=== PATIENT | female | born 1965 | race Two or more races ===

== ENCOUNTER 2020-02-26 12:43 | Outpatient (REF) | payer MEDICAID, SELFPAY ==
[2020-02-29 15:36] LABS: HPV mRNA E6/E7 rflx Not Detected (Not Detected)
== END 2020-02-26 12:44 | disposition home or self-care (01) ==
LOC: HO.LAB 12:43
PROVIDERS: Visit Provider Obstetrics & Gynecology
DX: Z01.419 Encounter for gynecological examination (general) (routine) without abnormal findings (principal); R87.610 Atypical squamous cells of undetermined significance on cytologic smear of cervix (ASC-US); R87.810 Cervical high risk human papillomavirus (HPV) DNA test positive
CPT/HCPCS: 87624; 87625; 88142

== ENCOUNTER 2020-03-06 17:20 | Outpatient (REF) | payer MEDICAID, SELFPAY | END 2020-03-06 17:21 | disposition home or self-care (01) | LOC: HO.LAB 17:20 | PROVIDERS: Visit Provider Internal Medicine | DX: Z20.828 Contact with and (suspected) exposure to other viral communicable diseases (principal) | CPT/HCPCS: C9803; U0003 ==

== ENCOUNTER 2020-04-30 09:24 | Outpatient (REF) | payer MEDICAID, SELFPAY | END 2020-04-30 09:25 | disposition home or self-care (01) | LOC: HO.LAB 09:24 | PROVIDERS: Visit Provider Internal Medicine | DX: Z20.822 Contact with and (suspected) exposure to COVID-19 (principal) | CPT/HCPCS: 36415; C9803; U0003 ==

== ENCOUNTER 2020-05-06 10:02 | Outpatient (REF) | payer MEDICAID, SELFPAY | END 2020-05-06 10:03 | disposition home or self-care (01) | LOC: HO.LAB 10:02 | PROVIDERS: Visit Provider Internal Medicine | DX: Z20.822 Contact with and (suspected) exposure to COVID-19 (principal) | CPT/HCPCS: 36415; C9803; U0003 ==

== ENCOUNTER → 2020-06-20 13:45 | Outpatient (BNVA) | payer MEDICAID, SELFPAY | PROVIDERS: PCP Nurse Practitioner Family; Visit Provider Physician Assistant ==

== ENCOUNTER 2020-07-26 13:04 | Outpatient (REF) | payer MEDICAID, SELFPAY ==
--- NOTE | ~2020-07-26 | MM_ITS ---
EXAMINATION: MM SCREENING DIGITAL BREAST TOMOSYNTHESIS, BILATERAL CLINICAL INFORMATION: Screening. Asymptomatic. The lifetime risk of breast cancer based on the Tyrer-Cuzick Model is 7%. COMPARISON: Mammography: 01/19/2019, 07/20/2017, 03/02/2017, 01/30/2016 TECHNIQUE: Digital breast tomosynthesis is performed in both the craniocaudal and mediolateral oblique views along with computer-aided detection (CAD). Synthesized 2D images are generated from the tomosynthesis. FINDINGS: There are scattered areas of fibroglandular density (ACR BI-RADS breast composition Category b). There are no significant masses, abnormal calcifications, or other abnormalities. Parenchymal pattern is similar to prior studies. The axilla and skin contours are unremarkable. MM/MM tomosynthesis screening BI IMPRESSION: No mammographic evidence of malignancy. ASSESSMENT: BI-RADS 1: Negative RECOMMENDATION: Routine annual mammography screening. This patient's information was entered into a reminder system with a target due date for their next mammogram.
== END 2020-07-26 13:05 | disposition home or self-care (01) ==
LOC: HO.MAMMO 13:04
PROVIDERS: Visit Provider Obstetrics & Gynecology
DX: Z12.31 Encounter for screening mammogram for malignant neoplasm of breast (principal)
CPT/HCPCS: 77063; 77067

== ENCOUNTER 2021-10-08 10:19 | Outpatient (REF) | payer MEDICAID, SELFPAY ==
[2021-10-15 19:06] LABS: HPV mRNA E6/E7 rflx Not Detected (Not Detected)
== END 2021-10-08 10:20 | disposition home or self-care (01) ==
LOC: HO.LAB 10:19
PROVIDERS: Visit Provider Obstetrics & Gynecology
DX: Z01.419 Encounter for gynecological examination (general) (routine) without abnormal findings (principal); Z11.51 Encounter for screening for human papillomavirus (HPV)
CPT/HCPCS: 87624; 88142

== ENCOUNTER 2021-12-12 08:35 | Outpatient (REF) | payer MEDICAID, SELFPAY ==
--- NOTE | ~2021-12-12 | MM_ITS ---
EXAMINATION: MM SCREENING DIGITAL BREAST TOMOSYNTHESIS, BILATERAL CLINICAL INFORMATION: Screening. Asymptomatic. The lifetime risk of breast cancer based on the Tyrer-Cuzick Model is 6%. COMPARISON: Mammography: 07/26/2020, 01/19/2019, 07/20/2017 TECHNIQUE: Digital breast tomosynthesis is performed in both the craniocaudal and mediolateral oblique views along with computer-aided detection (CAD). Synthesized 2D images are generated from the tomosynthesis. FINDINGS: There are scattered areas of fibroglandular density (ACR BI-RADS breast composition Category b). There are no significant masses, abnormal calcifications, or other abnormalities. No developing density or architectural abnormality. There is a dermal lesion overlying the upper right breast on MLO view. The axilla are unremarkable. MM/MM tomosynthesis screening BI IMPRESSION: No mammographic evidence of malignancy. ASSESSMENT: BI-RADS 2: Benign RECOMMENDATION: Routine annual mammography screening. This patient's information was entered into a reminder system with a target due date for their next mammogram.
== END 2021-12-12 08:36 | disposition home or self-care (01) ==
LOC: HO.MAMMO 08:35
PROVIDERS: Visit Provider Obstetrics & Gynecology
DX: Z12.31 Encounter for screening mammogram for malignant neoplasm of breast (principal)
CPT/HCPCS: 77063; 77067

== ENCOUNTER → 2021-12-18 07:31 | Outpatient (BNVA) | payer MEDICAID, SELFPAY | PROVIDERS: Visit Provider Physician Assistant | DX: Z12.11 Encounter for screening for malignant neoplasm of colon (principal); Z86.010 Personal history of colon polyps | CPT/HCPCS: 99212 ==

== ENCOUNTER 2021-12-19 12:50 | Day surgery (SDC) | payer MEDICAID, SELFPAY ==
--- NOTE | 2021-12-18 15:00 | P.CONAN_ITS ---
Documented by User: Nela Buckner NP 12/18/21 15:00 HPI - Anesthesia Eval Consult details Narrative: 55yo F for Colonoscopy PMFSH Active Problems Active Problems: All Active Problems (Updated 12/18/21 @ 08:05 by Paulette Lee PA-C) History of adenomatous polyp of colon (Acute) Acid reflux (Acute) Encounter for screening colonoscopy (Acute) Well woman exam (Acute) ASCUS with positive high risk HPV (Acute) Past Medical History Medical History 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 I (cervical intraepithelial neoplasia I) Family History Family History Mother Colon cancer Brother Bladder cancer Sister Liver cancer Surgical History Surgical History History of esophagogastroduodenoscopy (EGD) Hx of colonoscopy Social History Social History Household Members Other:: MOTHER Alcohol intake: current Alcohol intake frequency: does not drink Patient Tobacco Use Status: Never used Tobacco Use of substances other than those prescribed or required for medical reasons: No Are you DNR?: No Advance Directives: No Advance Directives Information Provided: Yes Current occupational status: employed 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 Meds Allergies Allergy/AdvReac Type Severity Reaction Status Date / Time No Known Allergies Allergy Verified 02/26/20 12:54 [No Known Allergies*] Exam Exam Date and Time: December 18, 2021 1500 Assessment and Plan Assessment Anesthesia Assessment: Chart Reviewed Documented by User: Nikki Baxter MD 12/19/21 14:31 PMFSH Past Medical History Medical History 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 I (cervical intraepithelial neoplasia I) Functional capacity: independent ambulation Patient : No Family History Family History Mother Colon cancer Brother Bladder cancer Sister Liver cancer Family history of problems with anesthesia: No Surgical History Surgical History History of esophagogastroduodenoscopy (EGD) Hx of colonoscopy History of Problems with Anesthesia: No Social History Social History Household Members Other:: MOTHER Alcohol intake: current Alcohol intake frequency: does not drink Patient Tobacco Use Status: Never used Tobacco Use of substances other than those prescribed or required for medical reasons: No Are you DNR?: No Advance Directives: No Advance Directives Information Provided: Yes Current occupational status: employed 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 Allergies Allergy/AdvReac Type Severity Reaction Status Date / Time No Known Allergies Allergy Verified 02/26/20 12:54 [No Known Allergies*] Exam Airway Mallampati Class: II TM Dist: >3cm Neck ROM: Full Heart: RRR Lungs: CTA Assessment and Plan Final Anesthetic Review Family History of Problems with Anesthesia: No History of Problems with Anesthesia: No ASA Class: II Final Preanesthetic Review: No Changes in Pt Med Stat, Meds/Allgs Chart Reviewed, Consent Obtained/Reviewed and Anes Risks/Benef Reviewed Patient Risk: Low Procedure Risk: Low Anesthetic Plan Anesthetic Plan: MAC: Disposition: Standard PACU
[2021-12-19 13:28] VITALS: BMI 25.4
[2021-12-19 13:35] VITALS: BP 129/80; PULSE 74; RESP 15; TEMP 36.3; O2SAT 100
[2021-12-19] MEDS: Lactated Ringers 1,000 ML 100 ML IVCONT (13:53)
--- NOTE | 2021-12-19 15:52 | P.BOP_ITS ---
Brief Operative Note Date of Service: 12/19/21 Pre-op diagnosis: Colon cancer screening, history of colon polyps, family history of colon cancer (Mom in her 80's) Post-op diagnosis: other (Colon polyp, diverticulosis) Procedure: COLONOSCOPY TILL CECUM WITH SNARE POLYPECTOMY Consent: Indications for the procedure and potential complications of bleeding, perforation, reaction to medications and missed diagnosis were discussed with the patient and informed consent was obtained. Instrument: Olympus PCF H 190 L variable stiffness pediatric colonoscope Monitoring: Vital signs and clinical assessment, intermittent blood pressure monitoring, continuous EKG monitoring, Pulse oximetry and Carbon Dioxide monitoring were done throughout the procedure. Colon withdrawl time was 21 minutes. Procedure: The patient was placed in the left lateral decubitis position and pre-procedure medications were administered. After a digital rectal examination of the ano-rectum, the video colonoscope was inserted into the rectum and advanced through the colon to the cecum. The colonoscope was slowly withdrawn in a retrograde panoramic fashion and the colon mucosa was carefully examined including a retroflexed view of the rectum. Findings and interventions are described below. Procedure Difficulty: Without difficulty Findings: Terminal Ileum: Not evaluated Cecum: A 2.5 cms polyp along the proximal lip of ICV - removed with a hot snare Ascending Colon: Normal Transverse Colon: Normal Descending Colon: Moderate diverticulosis Sigmoid Colon: Moderate diverticulosis Rectum: Normal Ano-rectum: Normal Colon preparation: Good Impression and Post Procedure Diagnosis: Colonoscopy Findings: One medium to large sized polyp removed Moderate diverticulosis seen in the left colon Plan: Await pathology results Patient has an appointment on 01/12/22 in the GI Clinic with CANDELARIA Walls. Repeat Colonoscopy interval based on path results - in 6 to 12 months if polyps is adenomatous and 5 years if polyps are hyperplastic (due to hx of colon polyps). Above findings were reviewed with the patient and colon polyps and diverticulosis handouts were given in the discharge area Surgeon: Celina López MD Anesthesia: MAC Was an Formula Maker used for this Procedure?: Yes Formula Maker: Jennifer Samuel Estimated blood loss (mL): 0 Pathology: other ( A: Iliocecal valve polyp.) Condition: stable Disposition: PACU
--- NOTE | 2021-12-19 15:52 | MHC.SHP ---
Pre-Procedural Eval Section A Date of Service: 12/19/21 The patient is an INPATIENT: No Changes since office visit: Yes Patient answered all questions; No Cold of Flu in the past 2 weeks, No New Medical Problems and No Changes in Medication The History & Physical has been completed within 30 days and I have reviewed it.: Yes Section B Chief Complaint: Personal history of colonic polyps,screening Allergies: Allergies Allergy/AdvReac Type Severity Reaction Status Date / Time No Known Allergies Allergy Verified 02/26/20 12:54 [No Known Allergies*] Plan I have reviewed the history and physical and performed a pertinent physical examination on my patient. No changes have occurred unless specified.
--- NOTE | 2021-12-19 15:54 | W.PM.OPN ---
Operative Note Operative Note Date of Service: 12/19/21 Narrative: Pre-op diagnosis: Colon cancer screening, history of colon polyps, family history of colon cancer (Mom in her 80's) Post-op diagnosis:?other (Colon polyp, diverticulosis) Procedure: COLONOSCOPY TILL CECUM WITH SNARE POLYPECTOMY Consent: Indications for the procedure and potential complications of bleeding, perforation, reaction to medications and missed diagnosis were discussed with the patient and informed consent was obtained. Instrument: Olympus PCF H 190 L variable stiffness pediatric colonoscope Monitoring: Vital signs and clinical assessment, intermittent blood pressure monitoring, continuous EKG monitoring, Pulse oximetry and Carbon Dioxide monitoring were done throughout the procedure. Colon withdrawl time was 21 minutes. Procedure: The patient was placed in the left lateral decubitis position and pre-procedure medications were administered. After a digital rectal examination of the ano-rectum, the video colonoscope was inserted into the rectum and advanced through the colon to the cecum. The colonoscope was slowly withdrawn in a retrograde panoramic fashion and the colon mucosa was carefully examined including a retroflexed view of the rectum. Findings and interventions are described below. Procedure Difficulty: Without difficulty Findings: Terminal Ileum: Not evaluated Cecum:? A 2.5 cms polyp along the proximal lip of ICV - removed with a hot snare Ascending Colon:? Normal Transverse Colon:? Normal Descending Colon:? Moderate diverticulosis Sigmoid Colon:? Moderate diverticulosis Rectum:? Normal Ano-rectum:? Normal Colon preparation:? Good? Impression and Post Procedure Diagnosis: Colonoscopy Findings: One medium to large sized polyp removed Moderate diverticulosis seen in the left colon Plan: Await pathology results Patient has an appointment on 01/12/22 in the GI Clinic with CANDELARIA Walls. Repeat Colonoscopy interval based on path results - in 6 to 12 months if polyps is adenomatous and 5 years if polyps are hyperplastic (due to hx of colon polyps). 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 Letter sent with biopsy results Surgeon: Celina López MD Anesthesia:?MAC Was an Dispatcher Bus And Trolley used for this Procedure?:?Yes Dispatcher Bus And Trolley:?Jennifer Samuel Estimated blood loss (mL):?0 Pathology:?other ( A: Iliocecal valve polyp.) Condition:?stable Disposition:?PACU
[2021-12-19 16:39] VITALS: BP 116/70; PULSE 76; RESP 16; TEMP 36.6; O2SAT 100
[2021-12-19 16:54] VITALS: BP 125/78; PULSE 67; RESP 14; O2SAT 100
[2021-12-19 17:09] VITALS: BP 134/81; PULSE 63; RESP 20; TEMP 36.9; O2SAT 97
== END 2021-12-19 17:14 | disposition home or self-care (01) ==
PROVIDERS: Visit Provider Internal Medicine Gastroenterology
PROC: 0DJD8ZZ Inspection of Lower Intestinal Tract, Via Natural or Artificial Opening Endoscopic (ICD-10-PCS; CPT 45378; principal; 2021-12-19 14:10)
DX: Z12.11 Encounter for screening for malignant neoplasm of colon (principal); Z86.010 Personal history of colon polyps; Z80.0 Family history of malignant neoplasm of digestive organs; K63.5 Polyp of colon; K57.30 Diverticulosis of large intestine without perforation or abscess without bleeding; D17.5 Benign lipomatous neoplasm of intra-abdominal organs
CPT/HCPCS: 45385; 88305

== ENCOUNTER → 2022-01-12 07:23 | Outpatient (BNVA) | payer MEDICAID, SELFPAY | PROVIDERS: Visit Provider Physician Assistant | DX: K57.30 Diverticulosis of large intestine without perforation or abscess without bleeding (principal); D17.79 Benign lipomatous neoplasm of other sites; Z86.010 Personal history of colon polyps; Z98.890 Other specified postprocedural states | CPT/HCPCS: 99212 ==

== ENCOUNTER 2022-07-08 12:08 | Outpatient (REF) | payer MEDICAID, SELFPAY ==
--- NOTE | ~2022-07-08 | XR_ITS ---
EXAMINATION: XR ELBOW, LEFT CLINICAL INFORMATION: Trauma. COMPARISON: None available. TECHNIQUE: AP, lateral, and oblique views of the left elbow. FINDINGS: There is normal alignment. Joint spaces are maintained. No evidence of acute fracture. No significant joint effusion is seen. No abnormal soft tissue calcification. XR/XR elbow LT min 3V IMPRESSION: No radiographic evidence of acute fracture.
== END 2022-07-08 12:09 | disposition home or self-care (01) ==
LOC: HO.XRAY 12:08
PROVIDERS: Visit Provider Internal Medicine
DX: M70.32 Other bursitis of elbow, left elbow (principal)
CPT/HCPCS: 73080

== ENCOUNTER → 2022-09-30 07:41 | Outpatient (REF) | payer MEDICAID, SELFPAY ==
--- NOTE | 2022-09-30 07:45 | CA_ITS ---
Transthoracic Echocardiogram Patient (Last, First, Middle): Ana Ribeiro, Gender: Female Date of : 1965 Age: 56 Procedure Date: 09/30/2022 Procedure Type: Transthoracic Echocardiogram Location: OP Height: 152.4 cm Weight: 58.06 kg BSA: 1.54 m2 Heart Rate: bpm BP: 120 / 78 mmHg Corduroy Cutter Operator: TO Referring MD: Doretha ESCAMILLA Symptoms: FAM HX CV DISEASE Z82.49 Study Quality: Fair/Contrast ECG Rhythm: Sinus Conclusions: - The left ventricular systolic function is normal. The calculated ejection fraction is 60% by biplane method. - The basal inferior and basal inferoseptal segments are hypokinetic. - No obvious valvular pathology seen on this study. Findings Procedure Information Contrast agent, definity, is being given per protocol without apparent complications. Left Ventricle Normal left ventricular cavity size. There is normal left ventricular wall thickness. The left ventricular systolic function is normal. The calculated ejection fraction is 60% by biplane method. There is no evidence of regional wall motion abnormalities. Diastolic function is normal for age. LV peak GLS -16.2%. Wall Motion Rest Echo Findings The basal inferior and basal inferoseptal segments are hypokinetic. Right Ventricle Normal right ventricular cavity size and systolic function. Atria Both atria are normal in size. Aortic Valve There is a normal trileaflet aortic valve. There is no aortic valve stenosis. There is no aortic valve regurgitation. Mitral Valve The mitral valve appears normal. There is trace mitral valve regurgitation. There is no mitral valve stenosis. Pulmonic Valve The pulmonic valve is likely normal. Tricuspid Valve There is no tricuspid valve regurgitation. Tricuspid regurgitation envelope is inadequate for calculation of right ventricular systolic pressure. Great Vessels The asc aorta is normal in size. Venous The inferior vena cava is normal in size and collapses greater than 50% with inspiration. Pericardium/Pleural There is a trivial pericardial effusion. Prior Study Comparison No prior study available for comparison. Recommendations, Care & Conclusions No obvious valvular pathology seen on this study. Measurements 2D Linear Measurements IVSd: 0.90 0.6-0.9/0.6-1.0 cm LVIDd: 4.26 3.9-5.3/4.2-5.9 cm LVIDd Index: 2.77 2.4-3.2/2.2-3.1 cm/m2 LVIDs: 2.49 2.0-3.6 cm LVPWd: 0.70 0.7-1.1 cm LA Diam: 2.70 2.7-3.8/3.0-4.0 cm LAIDs Index: 1.75 1.5-2.3 cm/m2 LV Mass: 129.09 67-162/88-224 g LV Mass Index: 83.83 43-95/49-115 g/m2 LVOT Diam: 2.00 3.0+(-)1.3 cm 2D Systolic Function EF 4C: 58.80 >55% EF 2C: 60.10 >55% EF BiP: 60.20 >55% Mitral Valve MV Pk E: 0.64 MV PK A: 0.72 MV Decel Time: 244.00 E/A: 0.90 E'Lateral: 6.96 E'Medial: 5.11 E/E' Med: 12.60 E/E' Lat: 9.20 PHT: 71.00 MVA PHT: 3.10 Decel Duchesne: 2.63 Aortic Valve AoV Pk Sea: 1.10 AoV Mn Sea: 0.76 AoV VTI: 0.25 AoV Pk Grad: 5.00 Aov Mn Grad: 3.00 ROSALINA Cont.VTI: 2.29 LVOT LVOT Pk Sea: 0.94 LVOT Mn Sea: 0.56 LVOT VTI: 0.18 LVOT Pk Grad: 4.00 LVOT Mn Grad: 1.00 LVOT Diam: 2.00 LVOT Area: 3.14 Diastolic Function MV Pk E: 0.64 MV Pk A: 0.72 E/A: 0.90 E'Medial: 5.11 E/E' Med: 12.60 E' Laterial: 6.96 E/E' Lat: 9.20 Right Ventricle TAPSE (mm): 24.80 TVS' Sea: 10.70 Tricuspid Valve RA Press: 3.00 Great Vessels Aorta Sinus of Valsalva: 2.69 2.0-3.5 cm Ao Asc: 3.00 2.1-3.4 cm Updated in Other Vendor System with Status of Final Wilfrido Bucio MD electronically signed on 10/02/2022 12:05:24 PM with status of Final
== END ==
LOC: HO.CARD 07:41
PROVIDERS: Visit Provider Registered Nurse
DX: Z82.49 Family history of ischemic heart disease and other diseases of the circulatory system (principal)
CPT/HCPCS: 93306; 93356; Q9957

== ENCOUNTER 2022-10-20 21:28 | Emergency (ER) | payer MEDICAID, SELFPAY ==
--- NOTE | ~2022-10-20 | XR_ITS ---
EXAMINATION: XR CHEST CLINICAL INFORMATION: Chest pain COMPARISON: 05/16/2017 TECHNIQUE: 2 views of the chest were obtained. FINDINGS: Lung volumes are symmetric. No focal consolidation is seen. No evidence of pneumothorax, pleural effusion, or overt pulmonary edema. Chronic mild interstitial prominence is unchanged, of uncertain clinical significance. Cardiac silhouette appears at the upper limits of normal in size. No acute osseous findings are seen. XR/XR chest 2V IMPRESSION: No acute cardiopulmonary findings.
[2022-10-20 21:54] VITALS: BP 147/78; PULSE 77; RESP 80; TEMP 36.2; O2SAT 97; BMI 25.0
--- NOTE | 2022-10-20 22:02 | ECG_ITS ---
Test Reason : CHEST PAIN Blood Pressure : / mmHG Vent. Rate : 074 BPM Atrial Rate : 074 BPM P-R Int : 168 ms QRS Dur : 084 ms QT Int : 366 ms P-R-T Axes : 050 004 017 degrees QTc Int : 406 ms Normal sinus rhythm Normal ECG No previous ECGs available Referred By: Generic ED Physician Electronically Signed By:JAMILA HAYDEN MD
[2022-10-20 22:37] LABS: MANUAL DIFF FLAG NO
[2022-10-20 22:43] LABS: Basophils Percent Auto 0.5 % (0-2); Eosinophils Absolute Auto 0.1 X10*3/uL (0.0-0.4); Eosinophils Percent Auto 1.1 % (0-4); Hematocrit 39.5 % (37.0-47.0); Hemoglobin 12.7 g/dl (12.0-16.0); Imm Gran Abs Auto 0.01 X10*3/uL (0.00-0.03); Imm Gran Pct Auto 0.2 % (0.0-0.4); Lymphocytes Absolute Auto 2.2 X10*3/uL (1.2-4.9); Lymphocytes Percent Auto 35.8 % (20-40); Mean Corpuscular HGB Conc 32.2 g/dl (31.0-35.0); Mean Corpuscular Hemoglobin 29.5 pg (27.0-33.0); Mean Corpuscular Volume 91.6 fL (80.0-98.0); Mean Platelet Volume 10.1 fL (9.4-12.3); Monocytes Absolute Auto 0.4 X10*3/uL (0.1-1.2); Neutrophils Absolute Auto 3.5 x10*3/uL (2.0-8.3); Neutrophils Percent Auto 56.4 % (45-73); Platelet Count 287 X10*3/uL (160-400); Red Blood Count 4.31 X10*6/uL (4.20-5.50); Red Cell Distribution Width 12.2 % (11.0-16.0); White Blood Count 6.1 X10*3/uL (4.8-10.8)
[2022-10-20 22:55] LABS: Alanine Aminotransferase 30 U/L (0-31); Albumin Level 4.3 g/dL (3.5-5.0); Alkaline Phosphatase 87 U/L (39-117); Anion Gap 15 (12-20); Aspartate Amino Transferase 18 U/L (5-31); Bilirubin Total 0.2 mg/dL (0.0-1.0); Blood Urea Nitrogen 15 mg/dL (9-16); Calcium 9.9 mg/dL (8.4-10.2); Carbon Dioxide 28 mmol/L (22-29); Chloride 105 mmol/L (96-108); Creatinine Clr Calc Pharmacy 63.5; Estimated Glomerular Filt Rate > 60; Glucose Random 126 mg/dL (60-115); Potassium 4.7 mmol/L (3.3-5.1); Sodium 143 mmol/L (135-145); Total Protein 7.2 g/dL (6.5-8.0)
[2022-10-20 23:03] LABS: Troponin-I High Sensitivity < 2.7 ng/L (<3.5-17.0)
[2022-10-21 00:54] VITALS: BP 142/84; PULSE 64; RESP 16; TEMP 36.8; O2SAT 98
--- NOTE | 2022-10-21 00:59 | MHC.EDTECH ---
THIS PCT JUST ASSUMED CARE OF ,VITALS SIGN TAKEN AND PATIENT WAS HOOKED UP TO CULINARY MANAGER ,PT AT BEDSIDE .
--- NOTE | 2022-10-21 01:40 | ED.GENADULT ---
HPI - General Adult General Chief complaint: General Medical Stated complaint: Vision issues/Dizziness Time Seen by Provider: 10/21/22 01:40 Source: patient Mode of arrival: ambulatory Limitations: no limitations History of Present Illness HPI narrative: Patient with no significant eye problems no history of migraine headache around 21:00 noticed scintillations in both eyes lasted for an hour no scotomas no eye pain followed by mild frontal headache and anxiety and chest pain. At this time on arrival patient does not have any complaints no change in visual acuity no nausea no vomiting no fever or chills Related Data Home Medications Medication Instructions Recorded Confirmed omeprazole 20 mg capsule,delayed 20 mg PO DAILY 01/12/22 release Allergies Allergy/AdvReac Type Severity Reaction Status Date / Time No Known Allergies Allergy Verified 10/20/22 21:54 [No Known Allergies*] Review of Systems Review of Systems: Yes all other systems are reviewed and are negative [facility] Past Medical History Medical History 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 I (cervical intraepithelial neoplasia I) Surgical History History of esophagogastroduodenoscopy (EGD) Hx of colonoscopy Family History Family History Mother Colon cancer Brother Bladder cancer Sister Liver cancer Social History Social History Household Members Other:: MOTHER Alcohol intake: current Alcohol intake frequency: does not drink Patient Tobacco Use Status: Never used Tobacco Advance Directives: No Advance Directives Information Provided: No Current occupational status: employed 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 Oriented X3. No acute distress. Eyes: PERRLA, No Nystagmus fundus normal exam , bedside ultrasound of both eyes no vitreous detachment anterior and posterior chamber normal ENT: Pharynx normal. Oral Mucosa moist Neck: Normal inspection. Neck supple. CVS: Normal heart rate and rhythm. Pulses normal. Respiratory: No respiratory distress. Equal air entry bilateral, Abdomen: Soft and nontender. Bowel sounds are present, Skin: Skin warm and dry. Normal skin color. Normal skin turgor. Extremities: No lower extremity edema. No calf tenderness Neuro: Oriented X 3. No motor deficit. No sensory deficit.No cerebellar signs , cranial nerves II-XII intact Medical Decision Making Medical Decision Making [facility] Narrative: Patient likely had migraine headache as this happened in both eyes lasted for an hour followed by headache. At this time which does not have any headache ultrasound negative for retinal detachment visual acuity normal no scotoma fundus normal Lab Data [facility] Lab Attestation statement: I reviewed the patient's lab results. 10/20/22 22:28 10/20/22 22:29 Labs: Lab Results 10/20/22 10/20/22 10/20/22 Range/Units 22:28 22:29 22:29 WBC 6.1 (4.8-10.8) X10*3/uL RBC 4.31 (4.20-5.50) X10*6/uL Hgb 12.7 (12.0-16.0) g/dl Hct 39.5 (37.0-47.0) % MCV 91.6 (80.0-98.0) fL MCH 29.5 (27.0-33.0) pg MCHC 32.2 (31.0-35.0) g/dl RDW 12.2 (11.0-16.0) % Plt Count 287 (160-400) X10*3/uL MPV 10.1 (9.4-12.3) fL Immature Gran % (Auto) 0.2 (0.0-0.4) % Neut % (Auto) 56.4 (45-73) % Lymph % (Auto) 35.8 (20-40) % Bland % (Auto) 6.0 (2-11) % Eos % (Auto) 1.1 (0-4) % Baso % (Auto) 0.5 (0-2) % Lymph # (Auto) 2.2 (1.2-4.9) X10*3/uL Bland # (Auto) 0.4 (0.1-1.2) X10*3/uL Eos # (Auto) 0.1 (0.0-0.4) X10*3/uL Baso # (Auto) 0.0 (0.0-0.2) X10*3/uL Abs Immat Gran (auto) 0.01 (0.00-0.03) X10*3/uL Absolute Neuts (auto) 3.5 (2.0-8.3) x10*3/uL Absolute Nucleated RBC 0.000 (0.0-0.012) X10*3/uL Nucleated RBC % (auto) 0.0 (0.0-0.2) /100WBC Sodium 143 (135-145) mmol/L Potassium 4.7 (3.3-5.1) mmol/L Chloride 105 (96-108) mmol/L Carbon Dioxide 28 (22-29) mmol/L Anion Gap 15 (12-20) BUN 15 (9-16) mg/dL Creatinine 0.77 (0.5-1.4) mg/dL Estim Creat Clear Calc 63.5 Estimated GFR > 60 Random Glucose 126 H (60-115) mg/dL Calcium 9.9 (8.4-10.2) mg/dL Total Bilirubin 0.2 (0.0-1.0) mg/dL AST 18 (5-31) U/L ALT 30 (0-31) U/L Alkaline Phosphatase 87 (39-117) U/L Troponin I High Sens < 2.7 (<3.5-17.0) ng/L Total Protein 7.2 (6.5-8.0) g/dL Albumin 4.3 (3.5-5.0) g/dL Discharge Plan Discharge Clinical Impression: Floater, vitreous Patient Disposition: Home, Self-Care Instructions: Visual Floaters (ED) Additional Instructions: Likely have migraine headache as a cause of visual changes follow-up with eye doctor for further evaluation Es probable que tenga migra?a dipak causa de los cambios visuales. seguimiento con un oftalm?logo para bruce evaluaci?n adicional Prescriptions: No Action omeprazole 20 mg capsule,delayed release(DR/EC) 20 mg PO DAILY Referrals: Rishabh Schwab [Physician] - 2 days Print Language: Setswana
[2022-10-21 02:00] VITALS: BP 127/80; PULSE 71; RESP 18; TEMP 36.8; O2SAT 98
== END 2022-10-21 03:08 | disposition home or self-care (01) ==
PROVIDERS: Emergency Provider Internal Medicine
DX: H53.8 Other visual disturbances (principal); H43.9 Unspecified disorder of vitreous body
CPT/HCPCS: 36415; 71046; 80053; 84484; 85025; 93005; 99283; 99284

== ENCOUNTER → 2022-10-20 22:02 | Outpatient (BNV) | payer MEDICAID, SELFPAY | PROVIDERS: Emergency Provider Internal Medicine; Visit Provider Internal Medicine Cardiovascular Disease | DX: R07.9 Chest pain, unspecified (principal) | CPT/HCPCS: 93010 ==

== ENCOUNTER 2022-11-19 11:30 | Outpatient (AMB) | payer OTHER, SELFPAY ==
[2022-11-19 11:31] VITALS: BP 102/60; BMI 25.4
--- NOTE | 2022-11-19 11:31 | MHC.OFFVIS ---
Intake Vital Signs 11/19/22 11:31 Height 5 ft Weight 130 lb BMI 25.4 BP 102/60 Intake Visit Reasons: Annual/DO NOT RS Intake Note: no concerns Assistant Sales Manager Required: Yes Assistant Sales Manager Language: Hydroelectric Component Machinist Name: Ani GIANG Information Interpreted: non-clinical & clinical Ceramic Tile Installation Helper: Ceramic Tile Installation Helper Present (Ani GIANG) Accompanied by: Self / Same As Patient Allergies No Known Allergies [No Known Allergies*] Allergy (Verified 11/19/22 11:32) Post menopausal: Yes HPI HPI Comments History of Present Illness Details Presenting for annual exam. No complaints. Last Pap/HPV was negative in 10/01 Last Mammogram was BI-RADS 2 in 01/01 Last Colonoscopy was done in 01/01, the recommendation was to repeat in 5 years [facility] Medical History (Updated 11/19/22 @ 11:37 by Arthur Roldan MD) 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 I (cervical intraepithelial neoplasia I) Surgical History History of esophagogastroduodenoscopy (EGD) Hx of colonoscopy Family History Mother Colon cancer Brother Bladder cancer Sister Liver cancer Social History Household Members Other:: MOTHER Housing: Apartment Alcohol intake: current Alcohol intake frequency: does not drink Patient Tobacco Use Status: Never used Tobacco Current occupational status: employed 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[employer] Sexually active: No Sexual orientation: Straight/Heterosexual Gender identity: Female Female Reproductive History Menstrual Total pregnancies: 4 Full term: 2 Number of Living Children: 2 Ab spontaneous: 2 Date of last pap smear: 10/09/21 Date of Mammogram: 12/12/21 Review of Systems Const All systems reviewed & are unremarkable except as noted in HPI and below Card Reports as per HPI Resp Reports as per HPI GI Reports as per HPI and Reports no additional complaints Reports as per HPI Physical Exam Vital Signs: BMI result Body Mass Index 25.4 Const General: cooperative, healthy appearing and comfortable Chest Chest palpation & inspection: normal inspection of the chest and normal palpation of entire chest wall Breast/axilla inspection: normal inspection of the breasts and normal inspection of the axillae Breast/axilla palpation: normal palpation of the breasts, normal palpation of the axillae and no axillary lymphadenopathy Resp Effort & Inspection: normal respiratory effort Auscultation: clear to auscultation bilaterally Percussion: percussion normal Cardio Palpation: normal PMI Rate: regular rate Rhythm: regular rhythm Heart sounds: no murmurs and no rubs Peripheral pulses: Peripheral pulses 2+ throughout GI Inspection: Yes normal to inspection Palpation (GI): Soft to palpation, nontender, no guarding, not rigid and No hepatosplenomegaly present Percussion: Yes normal to percussion Auscultation: normal bowel sounds Rectal Exam - Female: deferred General: Yes bladder normal to palpation External Female Exam: No lesion Speculum Exam - Vagina: normal appearance of the vagina, normal palpation, normal vaginal discharge and not erythematous Speculum Exam - Cervix: normal appearance of the cervix and normal palpation Bimanual exam- vagina & uterus: normal bimanual exam, normal palpation, uterine size normal, bladder normal to palpation, consistency normal and normal palpation Bimanual Exam- Adnexa, other: normal adnexae, no masses and no tenderness Assessment & Plan Assessment & Plan (1) Well woman exam: Comment: NIKKI 1 in 2018 Code(s): Z01.419 - Encounter for gynecological examination (general) (routine) without abnormal findings Plan: Cotesting done. Mammogram ordered. Counseled the patient about the recommended dietary allowance of 1000 mg of Calcium & 600 IU of vitamin D. The patient was instructed to perform monthly self-breast exams and to schedule an annual exam in a year; All questions answered and the patient verbalized understanding. Instructed the patient to schedule annual exam in a year Orders: Orders MM screening mammo BI Today Z12.31 - Encounter for screening mammogram for malignant neoplasm of breast Coding Level of Care Code Est Pt Prev Care 40-64y(59589) Diagnoses Well woman exam Z01.419
== END 2022-11-19 11:45 | disposition home or self-care (01) ==
LOC: HO.HWS 11:30
PROVIDERS: Visit Provider Obstetrics & Gynecology
DX: Z01.419 Encounter for gynecological examination (general) (routine) without abnormal findings (principal)
CPT/HCPCS: 99396

== ENCOUNTER 2022-11-19 11:30 | Outpatient (REF) | payer OTHER, SELFPAY ==
[2022-11-24 05:09] LABS: HPV mRNA E6/E7 rflx Not Detected (Not Detected)
== END 2022-11-19 11:31 | disposition home or self-care (01) ==
LOC: HO.LNP 11:30
PROVIDERS: Visit Provider Obstetrics & Gynecology
DX: Z01.419 Encounter for gynecological examination (general) (routine) without abnormal findings (principal); Z11.51 Encounter for screening for human papillomavirus (HPV)
CPT/HCPCS: 87624; 88142

== ENCOUNTER 2022-12-25 10:53 | Outpatient (REF) | payer OTHER, SELFPAY | END 2022-12-25 10:54 | disposition home or self-care (01) | LOC: HO.MAMMO 10:53 | PROVIDERS: Visit Provider Obstetrics & Gynecology | DX: Z12.31 Encounter for screening mammogram for malignant neoplasm of breast (principal) | CPT/HCPCS: 77063; 77067 ==

== ENCOUNTER → 2022-12-25 11:00 | Outpatient (BNV) | payer OTHER, SELFPAY | PROVIDERS: Visit Provider Radiology Diagnostic Radiology | DX: Z12.31 Encounter for screening mammogram for malignant neoplasm of breast (principal) | CPT/HCPCS: 77063; 77067 ==

== ENCOUNTER 2023-07-23 10:16 | Outpatient (REF) | payer OTHER, SELFPAY ==
[2023-07-23 11:51] LABS: Hematocrit 42.3 % (37.0-47.0); Hemoglobin 14.1 g/dl (12.0-16.0); Mean Corpuscular HGB Conc 33.3 g/dl (31.0-35.0); Mean Corpuscular Hemoglobin 30.1 pg (27.0-33.0); Mean Corpuscular Volume 90.4 fL (80.0-98.0); Mean Platelet Volume 10.8 fL (9.4-12.3); Platelet Count 315 X10*3/uL (160-400); Red Blood Count 4.68 X10*6/uL (4.20-5.50); Red Cell Distribution Width 12.2 % (11.0-16.0); White Blood Count 4.8 X10*3/uL (4.8-10.8)
[2023-07-23 12:39] LABS: Estimated Average Glucose 117 mg/dL; Hemoglobin A1c % 5.7 % (<6.0)
[2023-07-23 12:45] LABS: Syphilis Screen Nonreactive (Nonreactive)
[2023-07-23 14:17] LABS: CT PCR NOT DETECTED (Not Detect.); NG PCR NOT DETECTED (Not Detect.)
[2023-07-23 14:43] LABS: Alanine Aminotransferase 20 U/L (0-31); Albumin Level 4.2 g/dL (3.5-5.0); Alkaline Phosphatase 83 U/L (39-117); Anion Gap 11 (12-20); Aspartate Amino Transferase 21 U/L (5-31); Bilirubin Total 0.4 mg/dL (0.0-1.0); Blood Urea Nitrogen 12 mg/dL (9-16); Calcium 9.5 mg/dL (8.4-10.2); Carbon Dioxide 29 mmol/L (22-29); Chloride 106 mmol/L (96-108); Cholesterol 241 mg/dL (<200); Estimated Glomerular Filt Rate > 60; Glucose Random 86 mg/dL (60-115); HDL Cholesterol 60 mg/dL (>40); LDL Cholesterol Calculated 148 mg/dL (<100); Potassium 3.9 mmol/L (3.3-5.1); Sodium 142 mmol/L (135-145); TSH reflex Free T4 0.38 uIU/mL (0.32-4.0); Total Protein 7.3 g/dL (6.5-8.0); Triglycerides 167 mg/dL (<150); Vitamin D 25-OH Total 32.1 ng/mL (>30)
[2023-07-24 04:20] LABS: HBS Num1 1.78 mIU/mL (0-7.99); HBc Num1 0.12 S/CO (0.00-0.79); HIV AB/AG Nonreactive (Nonreactive); HIV Num 1 0.06 S/CO (0.00-0.99); Hepatitis B Core Antibody Nonreactive (Nonreactive); Hepatitis B Surface Antigen Negative (Negative); ~HepC Num1 0.08 S/CO (0.00-0.79); ~Hepatitis B Surface Antibody NONREACTIVE (Nonreactive); ~Hepatitis C Antibody Nonreactive (Nonreactive)
== END 2023-07-23 10:17 | disposition home or self-care (01) ==
LOC: HO.HHCL 10:16
PROVIDERS: Visit Provider Student in an Organized Health Care Education/Training Program
DX: Z00.00 Encounter for general adult medical examination without abnormal findings (principal); Z11.4 Encounter for screening for human immunodeficiency virus [HIV]
CPT/HCPCS: 0353U; 36415; 80053; 80061; 82306; 83036; 84443; 85027; 86704; 86706; 86780; 86803; 87340; 87389

== ENCOUNTER 2023-09-28 14:22 | Outpatient (REF) | payer OTHER, SELFPAY ==
--- NOTE | ~2023-09-28 | US_ITS ---
EXAMINATION: US PELVIS CLINICAL INFORMATION: History of ovarian uterine fibroids, last menstrual period 7 years ago, postmenopausal. COMPARISON: 01/18/2019. TECHNIQUE: Ultrasound of the pelvis is performed using both transabdominal and transvaginal transducers along with Doppler. Transvaginal imaging is performed due to inadequate visualization transabdominally. FINDINGS: Uterus is anteverted and measures 7.5 x 3.2 x 3.5 cm, volume 39.9 mL. Multiple uterine fibroids with largest as follows: 1.5 x 1.2 x 1.3 cm anterior fibroid with echogenic foci characteristic of coarse calcifications previously 1.2 x 0.8 x 1.2 cm fibroid. 1.5 x 1.1 x 1.5 cm fibroid, previously 1.8 x 1.9 x 1.9 cm. 3.1 x 2.4 x 2.3 cm fibroid, previously 2.4 x 2.5 x 2.0 cm. Visualization of fibroid margins is difficult due to uterine heterogeneity. Endometrial thickness is 2 mm, although visualization is endometrium is limited due to multiple fibroids. No significant free fluid. Right ovary measures 2.7 x 1.2 x 1.5 cm, volume 2.5 mm. Left ovary measures 2.1 x 1.1 x 1.2 cm, volume 1.4 mL. Bilateral ovaries are unremarkable. US/US pelvic and transvaginal IMPRESSION: 1. Fibroid uterus. 2. Endometrial thickness is 2 mm. 3. Unremarkable bilateral ovaries.
== END 2023-09-28 14:23 | disposition home or self-care (01) ==
LOC: HO.US 14:22
PROVIDERS: PCP Student in an Organized Health Care Education/Training Program; Visit Provider Student in an Organized Health Care Education/Training Program
DX: Z86.018 Personal history of other benign neoplasm (principal)
CPT/HCPCS: 76830; 76856

== ENCOUNTER 2024-01-13 15:40 | Outpatient (AMB) | payer MEDICAID, SELFPAY ==
--- NOTE | 2024-01-13 15:47 | MHC.OFFVIS ---
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 No complaints. Last Pap/HPV was negative in 12/02 Last Mammogram was BI-RADS Last Colonoscopy 1 in 01/02 was done in 01/01, the recommendation was to repeat in 5 years [facility] Medical History (Updated 01/13/24 @ 16:06 by Arthur Roldan MD) 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 I (cervical intraepithelial neoplasia I) Surgical History History of esophagogastroduodenoscopy (EGD) Hx of colonoscopy Family History Mother Colon cancer Brother Bladder cancer Sister Liver cancer Social History Household Members Other:: daughter Housing: Apartment Alcohol intake: current Alcohol intake frequency: does not drink Patient Tobacco Use Status: Never used Tobacco Current occupational status: unemployed Sexual orientation: Straight/Heterosexual Gender identity: Female Female Reproductive History Menstrual Date of last pap smear: 11/20/22 Date of Mammogram: 12/25/22 Review of Systems Const All systems reviewed & are unremarkable except as noted in HPI and below Card Reports as per HPI Resp Reports as per HPI GI Reports as per HPI and Reports no additional complaints Reports as per HPI Physical Exam Vital Signs: BMI result Body Mass Index 24.8 Const General: cooperative, healthy appearing and comfortable Chest Chest palpation & inspection: normal inspection of the chest and normal palpation of entire chest wall Breast/axilla inspection: normal inspection of the breasts and normal inspection of the axillae Breast/axilla palpation: normal palpation of the breasts, normal palpation of the axillae and no axillary lymphadenopathy Resp Effort & Inspection: normal respiratory effort Auscultation: clear to auscultation bilaterally Percussion: percussion normal Cardio Palpation: normal PMI Rate: regular rate Rhythm: regular rhythm Heart sounds: no murmurs and no rubs Peripheral pulses: Peripheral pulses 2+ throughout GI Inspection: Yes normal to inspection Palpation (GI): Soft to palpation, nontender, no guarding, not rigid and No hepatosplenomegaly present Percussion: Yes normal to percussion Auscultation: normal bowel sounds Rectal Exam - Female: deferred General: Yes bladder normal to palpation External Female Exam: No lesion Speculum Exam - Vagina: normal appearance of the vagina, normal palpation, normal vaginal discharge and not erythematous Speculum Exam - Cervix: normal appearance of the cervix and normal palpation Bimanual exam- vagina & uterus: normal bimanual exam, normal palpation, uterine size normal, bladder normal to palpation, consistency normal and normal palpation Bimanual Exam- Adnexa, other: normal adnexae, no masses and no tenderness Assessment & Plan Assessment & Plan (1) Well woman exam: Comment: NIKKI 1 in 2018 Code(s): Z01.419 - Encounter for gynecological examination (general) (routine) without abnormal findings Category: Medical Plan: Co testing not indicated this year. Counseled the patient about the recommended dietary allowance of 1200 mg of Calcium & 600 IU of vitamin D. Mammogram ordered. The patient was referred to GI for screening colonoscopy . The patient was instructed to perform monthly self-breast exams and schedule annual exam in a year. All questions answered and the patient verbalized understanding. Orders: Orders MM tomosynthesis screening BI Today Z12.31 - Encounter for screening mammogram for malignant neoplasm of breast Coding Level of Care Code Est Pt Prev Care 40-64y(68427) Diagnoses Well woman exam Z01.419
[2024-01-13 15:53] VITALS: BMI 24.8
== END 2024-01-13 16:10 | disposition home or self-care (01) ==
PROVIDERS: PCP Student in an Organized Health Care Education/Training Program; Visit Provider Obstetrics & Gynecology
DX: Z01.419 Encounter for gynecological examination (general) (routine) without abnormal findings (principal)
CPT/HCPCS: 99396

== ENCOUNTER → 2024-01-13 15:40 | Outpatient (BNVA) | payer MEDICAID, SELFPAY | PROVIDERS: PCP Student in an Organized Health Care Education/Training Program; Visit Provider Obstetrics & Gynecology | DX: Z01.419 Encounter for gynecological examination (general) (routine) without abnormal findings (principal) | CPT/HCPCS: 99396 ==

== ENCOUNTER → 2024-02-07 15:45 | Outpatient (BNV) | payer MEDICAID, SELFPAY | PROVIDERS: Absent Provider Obstetrics & Gynecology; PCP Student in an Organized Health Care Education/Training Program; Visit Provider Internal Medicine | DX: Z12.31 Encounter for screening mammogram for malignant neoplasm of breast (principal) | CPT/HCPCS: 77063; 77067 ==

== ENCOUNTER 2024-02-07 15:47 | Outpatient (REF) | payer MEDICAID, SELFPAY ==
--- NOTE | ~2024-02-07 | MM_ITS ---
EXAMINATION: MM SCREENING DIGITAL BREAST TOMOSYNTHESIS, BILATERAL CLINICAL INFORMATION: Screening. Asymptomatic. COMPARISON: Mammography: Comparison is made with available priors TECHNIQUE: Digital breast mammography with tomosynthesis is performed in both the craniocaudal and mediolateral oblique views along with computer-aided detection (CAD). FINDINGS: There are scattered areas of fibroglandular density (ACR BI-RADS breast composition Category b). There are no significant masses, abnormal calcifications, or other abnormalities. MM/MM tomosynthesis screening BI IMPRESSION: No mammographic evidence of malignancy. ASSESSMENT: BI-RADS BI-RADS 1 - Negative RECOMMENDATION: Routine annual mammography screening. 1 year F/U This examination should not preclude the clinical evaluation of a suspicious palpable abnormality. This patient's information was entered into a reminder system with a target due date for their next mammogram. Electronically signed by: Sakina Calderon DO 02/16/2024 10:29 AM DARLYN
== END 2024-02-07 15:48 | disposition home or self-care (01) ==
LOC: HO.MAMMO 15:47
PROVIDERS: Absent Provider Obstetrics & Gynecology; PCP Student in an Organized Health Care Education/Training Program; Visit Provider Student in an Organized Health Care Education/Training Program
DX: Z12.31 Encounter for screening mammogram for malignant neoplasm of breast (principal)
CPT/HCPCS: 77063; 77067

== ENCOUNTER 2024-02-09 15:56 | Outpatient (REF) | payer MEDICAID, SELFPAY | END 2024-02-09 15:57 | disposition home or self-care (01) | LOC: HO.XRAY 15:56 | PROVIDERS: PCP Student in an Organized Health Care Education/Training Program; Visit Provider Student in an Organized Health Care Education/Training Program | DX: R10.9 Unspecified abdominal pain (principal) | CPT/HCPCS: 74019 ==

== ENCOUNTER 2024-05-23 20:30 | Emergency (ER) | payer MEDICAID, SELFPAY ==
[2024-05-23 20:45] VITALS: BP 154/93; PULSE 98; RESP 17; TEMP 37.2; O2SAT 98; BMI 24.4
[2024-05-23 21:47] LABS: Influenza A PCR NEGATIVE (Negative); Influenza B PCR NEGATIVE (Negative); Resp Syncy Virus RNA Qual PCR NEGATIVE (Negative); SARS COV2 PCR INHOUSE NEGATIVE (Negative)
--- OUTSIDE RECORDS SUMMARY | 2024-05-24 00:25 | XMS_ITS | Clinical Summary ---
Author Organization [employer] Address [address] [facility] [facility] [address] [place] [address] Care Team Providers Care Fabric Coating Supervisor Name Role Phone Maryanne Seals MD Primary Care Pro vider Allergies No known active allergies Medications omega-3 (fish oil) 1000 MG capsule Take 1 capsule (1,000 mg) by mouth Once per day. 90 capsule 01/31/2024 Active Active Problems Problem Noted Date Diagnosed Date Prediabetes 07/31/2023 Hyperlipidemia 06/08/2023 Abnormal echocardiogram 06/08/2023 History of uterine fibroid 06/08/2023 Allergic rhinitis 06/08/2023 Health care maintenance 01/13/2023 Overview (01/13/2023): Routine Health Maintenance: Immunizations: HIV: CDC recommends that everyone between the ages of 13 and 64 get tested for HIV at least once as part of routine health care. For people with certain risk factors, CDC recommends getting tested at least once a year. Hep C: The USPSTF recommends screening for hepatitis C virus (HCV) infection in adults aged 18 to 79 years. One-time screening for most adults. Periodically screen persons with continued risk for HCV infection Hepatitis B: 2022 guidelines CDC recommends screen all adults aged 18 years and older at least once in their lifetime using a triple panel test. patients screen every Pap Smear: Shared decision-making guidelines. ACS: age 25-65 HPV swab every 5 years. USPSTF: age 21-25 cytology only q 3 y; age 25-29 cytology w/ reflex HPV q 3 y; age 30-65 PAP w/ HPV cotest q 5 years. Mammogram: Per ACS screening start age 45, earlier if risk factors present. Per USPSTF guidelines screenings Age 50-74 screening every other year. BMD: >age 65 Colonoscopy: 12/19/21 Medium to large polyp removed; moderate diverticulosis. Pathology of polyp = submucosal lipoma. Repeat colonoscopy 5 years Lung cancer: Per USPSTF annual low-dose lung CT scan age 50-80 who meet criteria: current smoker or quit in last 15 years; at least 20 pack history Eye: Dental: Encounters Date Type Department Care Team Description 05/23/2024 Orders Only GENERIC EXTERNAL DATA DEPARTMENT Provider, Generic External Data 05/16/2024 Telephone [facility] [address] [place] [address] Maryanne Seals MD Appointment Request from Last 3 Months Immunizations Name Administration Dates Next Due Hep B, adult 03/10/2018,05/04/2017,03/23/2017 Influenza injectable quadriv alent IIV4 with preservative 03/10/2018,03/11/2017,01/17/2016 Influenza injectable quadriv alent preservative free 06/08/2023,04/30/2021,01/31/2020 Influenza, seasonal, injecta ble, preservative free 01/31/2024 Pfizer Covid-19 Vaccine 12+ 01/31/2024, Tdap 01/17/2016 Zoster, Recombinant 02/05/2021 Family History Medical History Relation Name Comments Heart attack Brother bladder ca Brother Heart attack Father Heart attack Father's Brother Colon cancer at 87 y Mother Uterine cancer Paternal Grandmother Liver cancer Sister Relation Name Status Comments Brother Father Father's Brother Mother Paternal Grandmother Sister Social History Tobacco Use Types Packs/Day Years Used Date Smoking Tobacco: Never Passive Smoke Exposure: Never Smokeless Tobacco: Never Tobacco Cessation:Counseling Given: Not Answered Alcohol Use Standard Drinks/Week Comments Yes 2 (1 standard drink = 0.6 oz pur e alcohol) social Depression Answer Date Recorded Patient Health Questionnaire-9 Score 2 06/08/2023 Patient Health Questionnaire-9 Score 2 06/08/2023 Last PHQ-9: Questionnaire Data Not on file 0 06/08/2023 Housing Stability Answer Date Recorded What is your housing situation today? I do not have housing (Staying with others, in a hotel, in a assisted, living outside on the street, on a beach, in a car, or in a park 06/01/[address] you li ve. Do you have problems with any of the following? None of the above 06/01/2023 Food Insecurity Answer Date Recorded Within the past 12 months, y ou worried that your food would run out before you got money to buy more: Often true 06/01/2023 Within the past 12 months,th e food you bought just didn't last and you didn't have enough money to get more: Often true Transportation Answer Date Recorded In the past 12 months, has l ack of transportation kept you from medical appts, meetings, work or from getting things needed for daily living? No 02/02/2023 Utilities Answer Date Recorded In the past 12 months, has t he electric, gas, oil or water company threatened to shut off services in your home? No 02/02/2023 Depression Answer Date Recorded Patient Health Questionnaire-2 Score 0 06/08/2023 Comments No Sex and Gender Information Value Date Recorded Sex Assigned at Female 02/09/2022 10:28 AM EDT Legal Sex Female 10:28 AM EDT Gender Identity Female 02/09/2022 10:28 AM EDT Sexual Orientation Straight 02/09/2022 10 :28 AM EDT Last Filed Vital Signs Vital Sign Reading Time Taken Comments Blood Pressure 124/86 01/31/2024 1:45 PM EDT Pulse 86 01/31/2024 1:45 PM EDT Temperature 36.7 ??C (98.1 ??F) 01/31/2024 1:45 PM ED T Respiratory Rate 18 01/31/2024 1:45 PM EDT Oxygen Saturation 96% 01/31/2024 1:45 PM EDT Inhaled Oxygen Concentration - - Weight 58.7 kg (129 lb 6.4 oz) 01/31/2024 1:45 P M EDT Height 152.4 cm (5') 01/31/2024 1:45 PM EDT Body Mass Index 25.27 01/31/2024 1:45 PM EDT Plan of Treatment Upcoming Encounters Date Type Department Care Team (Late st Contact Info) Description 06/01/2024 1:30 PM EST Office Visit [facility] ADULT DENTAL [address] [place] [address] Aissatou Peralta, DDS [address] [place] [address] Health Maintenance Due Date Last Done Comments CT Colonography 1965 Colonoscopy 1965 Colorectal Cancer Screening 1965 FIT DNA/Cologuard 1965 FIT 1965 FOBT 1965 Sigmoidoscopy 1965 Alcohol/Substance Use Screening 1975 Pneumococcal Vaccine: 50+ Years (1 of 1 - PCV) 12/26/2013 Zoster Vaccines (2 of 2) 04/02/2021 02/05/2021 SDOH Screening 06/01/2024 06/01/2023 Depression Screening 06/08/2024 06/08/2023, 06/08/19 Diabetes: Hemoglobin A1C 07/22/2024 024, 08/06/2022, 06/05/2020, Additional history exists Tobacco Screening 01/30/2025 01/31/2024 DTaP/Tdap/Td Vaccines (2 - Td or Tdap) 01/16/2026 01/17/2016 Mammogram 02/06/2026 02/07/2024, 07/20/2017 Cervical Cancer Screening 10/08/2026 HPV/Cotest 10/08/2026 10/08/2021, 09/11, 02/26/2020, Additional history exists Pap Smear 10/08/2026 10/08/2021, 02/26/2020 RSV Patients and Patients Aged 60 years or older (1 - 1-dose 75+ series) 12/26/2038 Hepatitis B Vaccines Completed 03/10/2018, 05/04/2017, 03/23/2017 HIV Screening Completed 07/23/2023 Hepatitis C Screening Completed 07/23/2023 COVID-19 Vaccine Completed 01/31/2024, , 04/30/2021, Additional history exists Influenza Vaccine Completed 01/31/2024, , 04/30/2021, Additional history exists HIB Vaccines Aged Out No longer eligi ble based on patient's age to complete this topic HPV Vaccines Aged Out No longer eligi ble based on patient's age to complete this topic Hepatitis A Vaccines Aged Out No long er eligible based on patient's age to complete this topic IPV Vaccines Aged Out No longer eligi ble based on patient's age to complete this topic Meningococcal Vaccine Aged Out No jovani marat eligible based on patient's age to complete this topic RSV under 20 months Aged Out No longe r eligible based on patient's age to complete this topic Rotavirus Vaccines Aged Out No longer eligible based on patient's age to complete this topic Procedures Procedure Name Priority Date/Time Associated Diagnosis Comments SARS COV2/INFLUENZA A/B AND RSV RNA QL NAAT Routine 05/23/2024 9:03 PM EST BI MAMMOGRAM SCREENING TOMOSYNTHESIS BILATERAL Routine 02/07/2024 3:50 PM EDT HEPATITIS C AB W/REFL TO HCV RNA, QN, PCR Routine 07/23/2023 10:21 AM EDT Annual physical exam HIV 1/2 ANTIGEN/ANTIBODY, FOURTH GENERATION W/RFL Routine 07/23/2023 10:21 AM EDT Annual physical exam HEMOGLOBIN A1C Routine 07/23/2023 10:21 AM EDT Annual physical exam ZZZ HISTORICAL HPV E6/E7 RFLX NIKOS 16 18/45 Routine 10/08/2021 10:19 AM EDT HM PAP/HPV Routine 10/08/2021 from Last 3 Months or Most Recently Relevant to Health Maintenance Results * SARS-CoV-2 RNA, Influenza A/B, and RSV RNA, Ql NAAT (05/23/2024 9:03 PM EST) Influenza A PCR NEGATIVE Negative [facility] Influenza B PCR NEGATIVE Negative [facility] Resp Syncy Virus RNA Qual PCR NEGATIVE Negative [facility] SARS COV2 PCR NEGATIVE Negative [facility] Comment:All test results mus t be correlated with clinical findings.Negative results do not preclude SARS-CoV2, influenza Avirus, influenza B virus and/or RSV infectionand should not be used as the sole basis for treatment orother patient management decisions. Negative results must becombined with clinical observations, patient history, andepidemiological information.This test has not been evaluated for monitoring treatment ofinfection.This test has been authorized by the FDA under an EmergencyUse Authorization (EUA) for use by authorized laboratories.Testing performed on the [employer] GeneXpert utilizingreal-time RT-PCR.All SARS CoV2 and positive influenza A/B results arereported to [facility]. 05/23/2024 9:03 PM EST 05/23/2024 9:06 PM EST us Generic External Data Provider LAB MICROBIOLOGY - GENERAL ORDERABLES Final Result Performing Organization Address City/State/[facility] Co de Phone Number [facility] [address] [place] [address] [phone] * BI Mammogram Screening Tomosynthesis Bilateral (02/07/2024 3:50 PM EDT) Anatomical Region Laterality Modality Breast Bilateral Mammography 02/07/2024 3:50 PM EDT Narrative 02/16/2024 10:31 AM EST ? [facility] ? [address] ?[place] [address] ? Mammography Report ? Signed ? Patient: Ribeiro,Ana ?MR#: [id number] ?? [id number] ? : 1965 ?Acct:[id number] ? Age/Sex: 58 / F ?ADM Date: 10/28/24 ? Loc: HO.MAMMO ? Attending Dr: Maryanne Fam MD ? Ordering Physician: Arthur Roldan MD ?Results: 1Negativ ?? e ? Date of Service: 02/07/24 ?Follow Up: 1 Year From Orig ?? inal Mammogram ? Procedure(s): MM tomosynthesis screening BI ?? Accession Number(s): [id number] ? cc: Maryanne Seals MD; Arthur Roldan MD ? EXAMINATION: ?? MM SCREENING DIGITAL BREAST TOMOSYNTHESIS, BILATERAL ? CLINICAL INFORMATION: ? Screening. Asymptomatic. ? COMPARISON: ?? Mammography: Comparison is made with available priors ? TECHNIQUE: ?? Digital breast mammography with tomosynthesis is performed in both the ?? craniocaudal and mediolateral oblique views along with computer-aided ?? detection (CAD). ? FINDINGS: ?? There are scattered areas of fibroglandular density (ACR BI-RADS breast ?? composition Category b). ? There are no significant masses, abnormal calcifications, or other ?? abnormalities. ? MM/MM tomosynthesis screening BI ?? IMPRESSION: ?? No mammographic evidence of malignancy. ? ASSESSMENT: ? BI-RADS BI-RADS 1 - Negative ? RECOMMENDATION: ?? Routine annual mammography screening. ? 1 year F/U ? This examination should not preclude the clinical evaluation of a ?? suspicious palpable abnormality. ? This patient's information was entered into a reminder system with a ?? target due date for their next mammogram. ? Electronically signed by: ??Sakina Calderon DO ??02/16/2024 10:29 AM EST ?? RP ? Dictated By: ?Sakina Calderon DO ? Signed By: ?<Electronically signed by Sakina Calderon, DO in OV> ? 02/16/24 1029 ? DD/ 1550 ? TD/TT: 02/06/ 1613 ? Drum Operator: ? Procedure Note Donotuseinterpreter, Image - 02/16/2024 [facility] [address] [place], [place] [address] Mammography Report Signed Patient: Salma Ribeiro#: [id number] : 1965Acct:[id number] Age/Sex: 58 / FADM Date: 02/07/24 Loc: HO.MAMMO Attending Dr: Maryanne Fam MD Ordering Physician: Arthur Rlodan MDResults: 1Negativ e Date of Service: 02/07/24Follow Up: 1 Year From Orig inal Mammogram Procedure(s): MM tomosynthesis screening BI Accession Number(s): [id number] cc: Maryanne Seals MD; Arthur Roldan MD EXAMINATION: MM SCREENING DIGITAL BREAST TOMOSYNTHESIS, BILATERAL CLINICAL INFORMATION: Screening. Asymptomatic. COMPARISON: Mammography: Comparison is made with available priors TECHNIQUE: Digital breast mammography with tomosynthesis is performed in both the craniocaudal and mediolateral oblique views along with computer-aided detection (CAD). FINDINGS: There are scattered areas of fibroglandular density (ACR BI-RADS breast composition Category b). There are no significant masses, abnormal calcifications, or other abnormalities. MM/MM tomosynthesis screening BI IMPRESSION: No mammographic evidence of malignancy. ASSESSMENT: BI-RADS BI-RADS 1 - Negative RECOMMENDATION: Routine annual mammography screening. 1 year F/U This examination should not preclude the clinical evaluation of a suspicious palpable abnormality. This patient's information was entered into a reminder system with a target due date for their next mammogram. Electronically signed by: Sakina Calderon DO 02/16/2024 10:29 AM EST Dictated By: Sakina Calderon DO Signed By: <Electronically signed by Sakina Calderon DO in OV> 02/16/24 1029 DD/ 1550 TD/TT: 02/07/24 1613 Drum Operator: [facility] External Provider IMG BI PROCEDURES Edited Result - Final * Hepatitis C Antibody with Reflex to HCV, RNA, Quantitative, Real-Time PCR (07/23/2023 10:21 AM EDT) Hepatitis C Antibody Nonreactive Nonreactive [facility] Comment:Antibodies to HCV no t detected; does not exclude early acuteHCV infection. Blood Venous blood specimen / Unknown 07/23/2023 10:21 AM EDT 07/23/2023 11:25 AM EDT us Maryanne Fam MD LAB BLOOD ORDERAB LES Final Result Performing Organization Address [facility]/ZIP Co de Phone Number [facility] [address] [place] [phone] * HIV-1/2 Antigen and Antibodies, Fourth Generation, with Reflexes (07/23/2023 10:21 AM EDT) HIV AB/AG Nonreactive Nonreactive [facility] Comment:HIV-1 p24 Ag and/or HIV-1/HIV-2 Ab not detected.A test result that is nonreactive does not exclude thepossibility of exposure to or infection with HIV-1 and/orHIV-2. Nonreactive results in this assay for individualswith prior exposure to HIV-1 and/or HIV-2 may be due toantigen and antibody levels that are below the limit ofdetection of this assay.The [employer]uc[employer] HIV Ag/Ab Combo assay result andsupplemental assay results should be interpreted inconjunction with the patient's clinical presentation,history and other laboratory results. If the results areinconsistent with clinical evidence, additional testing issuggested to confirm the result. Blood Venous blood specimen / Unknown 07/23/2023 10:21 AM EDT 07/23/2023 11:25 AM EDT us Maryanne Fam MD LAB BLOOD ORDERAB LES Final Result Performing Organization Address [facility]/ZIP Co de Phone Number [facility] [address] [place] [phone] * Hemoglobin A1c (07/23/2023 10:21 AM EDT) Hemoglobin A1c 5.7 <6.0 % [facility] Comment:Hemoglobin A1C Refer ence Range Adults: 4.8 - 6.0 % Non diabetic: < 6.0 % Goal: < 7.0 %Additional Action Suggested: > 8.0 %Note: Hemoglobin A1c results are invalid for patients with abnormal amounts of HbF. Blood transfusions may impact the HbA1c concentration in the patient sample. Estimated Average Glucose 117 mg/dL [facility] Comment:eAG = Estimated ave rage glucose which is %A1C expressed asaverage glucose, using the formula of the G7F-GcjlywzOgrmemj Glucose study (ADAG), Diabetes Care, Vol.31,#8,Nov. 2007 Blood Venous blood specimen / Unknown 07/23/2023 10:21 AM EDT 07/23/2023 11:29 AM EDT Maryanne Fam MD LAB BLOOD ORDERAB LES Final Result [facility] [address] [place] [phone] * HPV E6/E7 RFLX NIKOS 16 18/45 (10/08/2021 10:19 AM EDT) HPV 16 RNA [facility] HPV 18/45 RNA [facility] HPV E6 E7 ADD [facility] HPV mRNA E6/E7 rflx Not Detected Not Detected [facility] Comment: Methodology: Element Setter-Mediated Amplification This assay detects E6/E7 viral messenger RNA (mRNA) from 14 high-risk HPV types (16,18,31,33,35,39,45,51,52,56,58,59,66,68). Cervical sources are required for HPV testing. If a vaginal source from a patient who has had a total hysterectomy with removal of cervix was submitted, please contact the testing laboratory for alternative testing options. For additional information, please refer to http://education.NextCare/faq/DOP011x7 (This link if provided for information/ educational purposes only.) THIS TEST WAS PERFORMED AT: [facility] [address] [place] [address] [address] [place], [place] ??[phone] SERENA HARRIS MD 10/08/2021 10:1 9 AM EDT Arthur Roldan MD HISTORICAL/NON ORDERABLE LABS Fi nal Result [facility] [address] * Pap Smear (10/08/2021) Historical Provider HEALTH MAINTENANCE Final Result from Last 3 Months or Most Recently Relevant to Health Maintenance Insurance [facility] C[facility] STAND ADULT Care Teams Fabric Coating Supervisor Relationship Specialty Start Date End Date Maryanne Seals MD [address] [place] [phone] PCP - General Internal Medicine 10/16/22
--- OUTSIDE RECORDS SUMMARY | 2024-05-24 00:25 | XMS_ITS | Encounter Summary ---
Author Organization [employer] Address [address] [facility] [address] [place] [address] Care Team Providers Care Acid Adjuster Name Role Phone Maryanne Seals MD Primary Care Pro vider Encounter Details Date Type Department Care Team ([facility] st Contact Info) Description 05/23/2024 Orders Only GENERIC EXTERNAL DATA DEPARTMENT Provider, Generic External Data Social History Tobacco Use Types Packs/Day Years Used Date Smoking Tobacco: Never Passive Smoke Exposure: Never Smokeless Tobacco: Never Alcohol Use Standard Drinks/Week Comments Yes 2 [...] with others, in a hotel, in a chcf, living outside on the street, on a [...] t he electric, gas, oil or water [employer] threatened to shut off services in your home? No 02/02/2023 Depression Answer Date Recorded Patient Health Questionnaire-2 Score 0 06/08/2023 Comments No Sex and Gender Information Value Date Recorded Sex Assigned at Female 02/09/2022 10:28 AM EDT Legal Sex Female 10:28 AM EDT Gender Identity Female 02/09/2022 10:28 AM EDT Sexual Orientation Straight 02/09/2022 10 :28 AM EDT documented as of this encounter Plan of Treatment Upcoming Encounters Date Type Department Care Team (Late st Contact Info) Description 06/01/2024 1:30 PM EST Office Visit [facility] ADULT DENTAL [address] [place] [address] Aissatou Peralta, DDS [address] [place] [address] documented as of this encounter Procedures Procedure Name Priority Date/Time Associated Diagnosis Comments SARS COV2/INFLUENZA A/B AND RSV RNA QL NAAT Routine 05/23/2024 9:03 PM EST documented in this encounter Results * SARS-CoV-2 RNA, Influenza A/B, and RSV RNA, Ql NAAT (05/23/2024 9:03 PM EST) Influenza A PCR NEGATIVE Negative [facility] Influenza B PCR NEGATIVE Negative [facility] Resp Syncy Virus RNA Qual PCR NEGATIVE Negative [facility] SARS COV2 PCR NEGATIVE Negative [facility] Comment:All test results mus t be [...] use by authorized laboratories.Testing performed on the [employer] GeneXpert utilizingreal-time RT-PCR.All SARS CoV2 and positive influenza A/B results arereported to [facility]. 05/23/2024 9:03 PM EST 05/23/2024 9:06 PM EST us Generic External Data Provider LAB MICROBIOLOGY - GENERAL ORDERABLES Final Result [facility] [address] [place] [address] [phone] documented in this encounter Visit Diagnoses Not on filedocumented in this encounter Additional Health Concerns Assessment Noted Time PHQ-9 Depression Total Score: 2 06/08/19 24 10:16 AM EST documented as of this encounter Care Teams Acid Adjuster Relationship Specialty Start Date End Date Maryanne Seals MD [address] [place] [address] PCP - General Internal Medicine 10/16/22 documented as of this encounter
--- OUTSIDE RECORDS SUMMARY | 2024-05-24 00:25 | XMS_ITS | Encounter Summary ---
Author Organization [employer] [facility] Address [address] [place] [address] Care Team Providers Care Brim Raiser Name Role Phone Doretha Hayes Primary Care Provider [phone] Maryanne Seals MD Primary Care Pro vider Encounter Details Date Type Department Care Team (Latest Contact Info) Description 10/06/2021 Abstract [facility] CONVERSIONS Dental, Provider, DDS Social History Tobacco Use Types Packs/Day Years Used Date Smoking Tobacco: Never Assessed Comments Unknown Sex and Gender Information Value Date Recorded Sex Assigned at Female 02/09/2022 10:28 AM EDT Legal Sex Female 10:28 AM EDT Gender Identity Female 02/09/2022 10:28 AM EDT Sexual Orientation Straight 02/09/2022 10 :28 AM EDT documented as of this encounter Plan of Treatment Upcoming Encounters Date Type Department Care Team ( st Contact Info) Description 06/01/2024 1:30 PM EST Office Visit [facility] ADULT DENTAL [address] [place] [address] [place], Aissatou, DDS [address] [place] [address] documented as of this encounter Visit Diagnoses Not on filedocumented in this encounter Care Teams Brim Raiser Relationship Specialty Start Date End Date Doretha Hayes FNP PCP - General Family Medicine 09/23/21 10/15/22 Maryanne Seals MD [address] [place] [address] PCP - General Internal Medicine 10/16/22 documented as of this encounter
--- OUTSIDE RECORDS SUMMARY | 2024-05-24 00:25 | XMS_ITS | Encounter Summary ---
Author Organization [employer] [facility] Address [address] [place] [address] [address] [place] [address] Care Team Providers Care Aircraft Structure Mechanic Name Role Phone Maryanne Seals MD Primary Care Pro vider Encounter Details Date Type Department Care Team (Late Contact Info) Description 01/06/2023 Orders Only [facility] MEDICINE [address] [place] [address] Provider, MD Laura Social History Tobacco Use Types Packs/Day Years Used Date Smoking Tobacco: Former Cigarettes Passive Smoke Exposure: Never Smokeless Tobacco: Never Comments:Quit 30-40 years ag o. Alcohol Use Standard Drinks/Week Comments Yes 2 (1 standard drink = 0.6 oz pur e alcohol) Comments Unknown Sex and Gender Information Value [...] 1:30 PM EST Office Visit [facility] ADULT DENTAL [address] [place] [address] Aissatou Peralta DDS [address] [place], [place] [phone] documented as of this encounter Procedures Procedure Name Priority Date/Time Associated Diagnosis Comments HM PAP/HPV Routine 10/08/2021 HM PAP/HPV Routine 02/26/2020 documented in this encounter Results * Hm Pap Smear (10/08/2021) us Historical Provider HEALTH MAINTENANCE Final Result * Hm Pap Smear (02/26/2020) us Historical Provider HEALTH MAINTENANCE Final Result documented in this encounter Visit Diagnoses Not on filedocumented in this encounter Care Teams Aircraft Structure Mechanic Relationship Specialty Start Date End Date Maryanne Seals MD [address] [place] [phone] PCP - General Internal Medicine 10/16/22 documented as of this encounter
--- OUTSIDE RECORDS SUMMARY | 2024-05-24 00:25 | XMS_ITS | Encounter Summary ---
Author Organization [employer] Address [address] [address] Care Team Providers Care Small Battery Plate Assembler Name Role Phone Maryanne Seals MD Primary Care Pro vider Reason for Visit * Reason Onset Date Comments Appointment Request 05/16/2024 Encounter Details Date Type Department Care Team ([facility] st Contact Info) Description 05/16/2024 Telephone [facility] [address] [place] [address] Maryanne Seals MD [address] [place] [address] Appointment Request Social History Tobacco Use Types Packs/Day Years [...] with others, in a hotel, in a jail, living outside on the street, on a [...] AM EDT documented as of this encounter Miscellaneous Notes * Telephone Encounter - Isabel Jimbo - 05/16/2024 10:35 AM EST Called PT to schedule a FU in July with PCP. NA\LVM documented in this encounter Plan of Treatment Upcoming Encounters Date Type Department Care Team (Late st Contact Info) Description 06/01/2024 1:30 PM EST Office Visit [facility] ADULT [facility] [address] [place] [address] Jack-Lyaton, Aissatou, DDS [address] [place] [address] documented as of this encounter Visit Diagnoses Not on filedocumented in this encounter Additional Health Concerns Assessment Noted Time PHQ-9 Depression Total Score: 2 06/08/19 10:16 AM EST documented as of this encounter Care Teams Small Battery Plate Assembler Relationship Specialty Start Date End Date Maryanne Seals MD [address] [place] [address] PCP - General Internal Medicine 10/16/22 documented as of this encounter
== END 2024-05-24 00:29 | disposition left against medical advice (07) ==
PROVIDERS: Emergency Provider Emergency Medicine; PCP Student in an Organized Health Care Education/Training Program
DX: R06.02 Shortness of breath (principal); Z03.818 Encounter for observation for suspected exposure to other biological agents ruled out
CPT/HCPCS: 0241U; 99281

== ENCOUNTER 2024-06-21 14:22 | Outpatient (AMB) | payer MEDICAID, SELFPAY ==
--- NOTE | 2024-06-21 14:24 | A.OFFVIS_ITS ---
Vital Signs 06/21/24 14:25 Height 5 ft Weight 127 lb 13.89 oz BMI 25.0 BP 120/68 Blood Pressure Location Lt brachial Position Sitting Pulse 81 Pulse Source Monitor Intake Visit Reasons: arnp/dr. carmelina gorman/abn echo,hyperlipidemia Compensation Agent Required: Yes Compensation Agent Name: [id number] Allergies No Known Allergies [No Known Allergies*] Allergy (Verified 05/23/24 20:46) Medication List - Last Reconciled 06/21/24 by Wilfrido Bucio MD omega 9-vuv-zmx-fish oil 300 mg (120 mg- 180mg)-1,000 mg 1 cap PO DAILY omeprazole 20 mg PO DAILY HPI Comments Details: The patient is a 58-year-old female presenting with concerns regarding her cardiac health due to a notable family history of cardiovascular disease. She describes multiple instances where male members of her family, including her father and brothers, have experienced significant cardiac events, such as myocardial infarctions and cardiomyopathy. This has prompted her to be proactive in seeking evaluation of her own heart health despite having never experienced a heart attack herself. She has experienced intermittent episodes described as a stabbing sensation in the left thoracic region, most frequently occurring without cause, but occasionally while in motion. In previous evaluations, an echocardiogram was performed and noted to have findings, which were not deemed serious by her primary provider, but with the family history in mind, these episodes are of c oncern to the patient. [facility] Medical History (Updated 06/21/24 @ 14:46 by Wilfrido Bucio MD) 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 I (cervical intraepithelial neoplasia I) Surgical History History of esophagogastroduodenoscopy (EGD) Hx of colonoscopy Family History (Updated 06/21/24 @ 14:52 by Wilfrido Bucio MD) Mother Colon cancer Brother Bladder cancer Sister Liver cancer Father CAD (coronary artery disease) Social History Household Members Other:: daughter Housing: Apartment Alcohol intake: current Alcohol intake frequency: does not drink Patient Tobacco Use Status: Never used Tobacco Current occupational status: unemployed Sexual orientation: Straight/Heterosexual Gender identity: Female Review of Systems Const Denies weakness ENT Denies dizziness Card Denies chest pain, Denies chest pain with activity, Denies syncope, Denies rapid heart rate, Denies pedal edema, Denies edema, Denies leg edema, Denies lightheadedness, Denies palpitations, Denies dyspnea, Denies dyspnea on exertion and Denies orthopnea Resp Denies cough, Denies dyspnea and Denies dyspnea on exertion GI Denies hematochezia and Denies change in stool character Musc Denies abnormal gait, Denies muscle cramps, Denies muscle weakness, Denies numbness, Denies radiating pain into limb and Denies tingling Neuro Denies abnormal gait, Denies dizziness, Denies syncope, Denies numbness, Denies tingling and Denies weakness Endo Denies palpitations Physical Exam Vital Signs: Last Vital Signs Pulse 81 06/21/24 14:25 BP 120/68 06/21/24 14:25 BMI result Body Mass Index 25.0 Const General: comfortable and no acute distress Orientation/consciousness: patient oriented x3 HEENT Other: Unremarkable Head: Yes normal to inspection Neck Neck: Yes normal visual inspection Chest Chest palpation & inspection: normal inspection of the chest Resp Auscultation: clear to auscultation bilaterally Cardio Palpation: normal PMI Heart sounds: S1 normal heart sound present, S2 normal heart sound present, no gallops, no murmurs and no rubs GI Palpation (GI): Soft to palpation Back/Spine/Pelvis Other: unremarkable Skin General skin exam: no rashes or lesions noted Neuro General: patient oriented x3 Extrem General: Yes normal to inspection Psych Mental Status: mental status grossly normal Office Procedures EKG Details: EKG with underlying sinus rhythm at 81/Min; possible left atrial enlargement; no significant ST-T changes; [place] [address]-[id number], Complete Assessment & Plan Assessment & Plan (1) Regional wall motion abnormality of heart: Code(s): R93.1 - Abnormal findings on diagnostic imaging of heart and coronary circulation Category: Medical (2) Family history of coronary artery disease: Code(s): Z82.49 - Family history of ischemic heart disease and other diseases of the circulatory system Category: Medical (3) Family history of cardiomyopathy: Code(s): Z82.49 - Family history of ischemic heart disease and other diseases of the circulatory system Category: Medical Plan Baseline EKGs unremarkable. Nonspecific stabbing sensation but no overt cardiac symptoms. Blood pressure seems okay but she has high lipids. Family history as above. In a prior echocardiogram from 2022, LVEF was 60%. Basal inferior/inferoseptal segments thought to be hypokinetic. Considering the above history, we will work her up for underlying coronary disease. Repeat echocardiogram to assess if the wall motion is true or artifactual. We will also get a coronary CTA. Follow-up after the above. Orders: Orders CT Cardiac Coronary Angio Today I25.10 - Atherosclerotic heart disease of na tive coronary artery without angina pectoris Basic Metabolic Panel Today R93.1 - Abnormal findings on diagnostic imaging of heart and coronary circulation CA echo transthoracic complete Today I25.10 - Atherosclerotic heart disease of [place] coronary artery without angina pectoris Patient Instructions: - Schedule a repeat echocardiogram and CT scan of the heart. - Notify the office if experiencing any new or worsening symptoms, such as chest pain or shortness of breath. - Follow-up as scheduled to review test results and determine the next steps. - Maintain awareness of any family members' recent cardiac health developments. Coding Level of Care Code New Pt Level 4 (24538) Complex EM visit Add On G2211 Diagnoses Regional wall motion abnormality of heart R93.1 Family history of coronary artery disease Z82.49 Family history of cardiomyopathy Z82.49 CPT Codes EKG - CPT: 01929-[id number], Complete ([id number])
[2024-06-21 14:25] VITALS: BP 120/68; PULSE 81; BMI 25.0
--- OUTSIDE RECORDS SUMMARY | 2024-06-21 16:56 | XMS_ITS | Encounter Summary ---
Author Organization [employer] [facility] Address [address] [place] [address] Care Team Providers Care Ehs Engineer Name Role Phone Doretha Hayes Primary Care Provider +1- [phone] Maryanne Seals MD Primary Care Pro vider Encounter Details Date Type Department Care Team (Latest Contact Info) Description 09/14/2018 Abstract [facility] Dental, Provider, DDS Social History Tobacco [...] Care Team ( st Contact Info) Description 07/21/2024 9:30 AM EDT Office Visit [facility] MEDICINE [address] [place] [phone] Maryanne Seals MD [address] [place] [phone] 09/14/2024 3:00 PM EDT Office Visit [facility] ADULT DENTAL [address] [place] [address] [phone] Deb Farmer documented as of this encounter Visit Diagnoses Not on filedocumented in this encounter Care Teams Ehs Engineer Relationship Specialty Start Date End Date Doretha Hayes FNP PCP - General Family Medicine 09/23/21 10/15/22 Maryanne Seals MD [address] [place] [phone] PCP - General Internal Medicine 10/16/22 documented as of this encounter
--- OUTSIDE RECORDS SUMMARY | 2024-06-21 16:56 | XMS_ITS | Encounter Summary ---
Author Organization [email or web address] [facility] Address [address] [place] [phone] Care Team Providers Care Senior Financial Analyst Name Role Phone Doretha Hayes Primary Care Provider +1- [phone] Maryanne Seals MD Primary Care Pro vider Encounter Details Date Type Department Care Team (Latest Contact Info) Description 10/06/2021 Abstract [facility] Dental, Provider, DDS Social History [...] Description 07/21/2024 9:30 AM EDT Office Visit [facility] MEDICINE [address] [place] [phone] Maryanne Seals MD [address] [place] [phone] 09/14/2024 3:00 PM EDT Office Visit [facility] ADULT DENTAL [address] [place] [address] [phone] Deb Farmer documented as of this encounter Visit Diagnoses Not on filedocumented in this encounter Care Teams Senior Financial Analyst Relationship Specialty Start Date End Date Doretha Hayes FNP PCP - General Family Medicine 09/23/21 10/15/22 Maryanne Seals MD [address] [place] [phone] PCP - General Internal Medicine 10/16/22 documented as of this encounter
--- OUTSIDE RECORDS SUMMARY | 2024-06-21 16:56 | XMS_ITS | Encounter Summary ---
Author Organization [facility] Address [address] [place] [address] Care Team Providers Care Risk Control Product Liability Director Name Role Phone Maryanne Seals MD Primary Care Pro vider Encounter Details Date Type Department Care Team (Late st Contact Info) Description 01/06/2023 Orders Only [facility] MEDICINE [address] [place] [address] [phone] ProviderLaura MD Social History Tobacco Use Types Packs/Day Years [...] Care Team (Late st Contact Info) Description 07/21/2024 9:30 AM EDT Office Visit [facility] MEDICINE [address] [place] [address] [phone] Maryanne Seals MD [address] [place] [address] [phone] 09/14/2024 3:00 PM EDT Office Visit [facility] ADULT DENTAL [address] [place] [address] [phone] Deb Farmer documented as of this encounter Procedures Procedure Name Priority Date/Time Associated Diagnosis Comments HM PAP/HPV Routine 10/08/2021 PAP/HPV Routine 02/26/2020 documented in this encounter Results * Pap Smear (10/08/2021) us Historical Provider HEALTH MAINTENANCE Final Result * Pap Smear (02/26/2020) us Historical Provider HEALTH MAINTENANCE Final Result documented in this encounter Visit Diagnoses Not on filedocumented in this encounter Care Teams Risk Control Product Liability Director Relationship Specialty Start Date End Date Maryanne Seals MD [address] [place] [phone] PCP - General Internal Medicine 10/16/22 documented as of this encounter
--- OUTSIDE RECORDS SUMMARY | 2024-06-21 16:56 | XMS_ITS | Encounter Summary ---
Author Organization [employer] Address 75 [facility] 7 [place] [address] Care Team Providers Care Blade Balancer Name Role Phone Maryanne Seals MD Primary Care Pro vider Reason for Visit * Reason Comments Dental Exam Encounter Details Date Type Department Care Team ([facility] st Contact Info) Description 06/01/2024 1:30 PM EST Office Visit [facility] ADULT DENTAL [address] [place] [address] Aissatou Peralta DDS [address] [place] [address] Teeth missing (Primary Dx); Encounter for dental examination; Rotated tooth Social History Tobacco Use Types Packs/Day Years [...] with others, in a hotel, in a halfway, living outside on the street, on a [...] AM EDT documented as of this encounter Progress Notes * Aissatou Peralta DDS - 06/01/2024 1:30 PM EST Dental procedures in this visit D0120 - PERIODIC ORAL EVALUATION - ESTABLISHED PATIENT (Completed) Service provider: Aissatou Peralta DDS Billing provider: Aissatou Peralta DDS D0220 - INTRAORAL - PERIAPICAL FIRST RADIOGRAPHIC IMAGE (Completed) Service provider: Aissatou Peralta DDS Billing provider: Aissatou Peralta DDS D0230 - INTRAORAL - PERIAPICAL EACH ADDITIONAL RADIOGRAPHIC IMAGE (Completed) Service provider: Aissatou Peralta DDS Billing provider: Aissatou Peralta DDS D0230 - INTRAORAL - PERIAPICAL EACH ADDITIONAL RADIOGRAPHIC IMAGE (Completed) Service provider: Aissatou Peralta DDS Billing provider: Aissatou Peralta DDS D0230 - INTRAORAL - PERIAPICAL EACH ADDITIONAL RADIOGRAPHIC IMAGE (Completed) Service provider: Aissatou Peralta DDS Billing provider: Aissatou Peralta DDS D0230 - INTRAORAL - PERIAPICAL EACH ADDITIONAL RADIOGRAPHIC IMAGE (Completed) Service provider: Aissatou Peralta DDS Billing provider: Aissatou Peralta DDS D0230 - INTRAORAL - PERIAPICAL EACH ADDITIONAL RADIOGRAPHIC IMAGE (Completed) Service provider: Aissatou Peralta DDS Billing provider: Aissatou Peralta DDS D0230 - INTRAORAL - PERIAPICAL EACH ADDITIONAL RADIOGRAPHIC IMAGE (Completed) Service provider: Aissatou Peralta DDS Billing provider: Aissatou Peralta DDS D0230 - INTRAORAL - PERIAPICAL EACH ADDITIONAL RADIOGRAPHIC IMAGE (Completed) Service provider: Aissatou Peralta DDS Billing provider: Aissatou Peralta DDS D9450 - CASE PRESENTATION, DETAILED AND EXTENSIVE TREATMENT PLANNING (Completed) Service provider: Aissatou Peralta DDS Billing provider: Aissatou Peralta DDS Patient ID: Ana Ribeiro is a 58 y.o. female. Time Out: Timeout Date: 06/01/24, Timeout Time: 1333 (exam and xrays) Location: [facility] Tooth: Maxilla and Mandible Procedure: Exam and X-rays Verified the above with patient, assistant nurse manager, and provider. Confirmed via patient's chart, intraorally and by radiographs. Marketing Manager Health Communications: not applicable Chief Complaint Patient presents with Dental Exam Medical Hx: Vitals: There were no vitals taken for this visit. Past Medical History: Diagnosis Date Pre-diabetes Medications: Outpatient Encounter Medications as of 06/01/2024 Medication Sig Dispense Refill omega-3 (fish oil) 1000 MG capsule Take 1 capsule (1,000 mg) by mouth Once per day. 90 capsule 0 No facility-administered encounter medications on file as of 06/01/2024. 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 Details: large palatine torus; moderate bilateral mandibular zain OCS: negative Dental Exam Radiographic Interpretation: Associated radiographs for today's visit were reviewed and finding(s) were discussed with the patient. Findings include: missing teeth; rotated teeth; crowding of teeth lower anterior; dental plaque. Reddened upper mucosa- advised pt of resting in between meals if possible. Hard Tissue Exam: No decay Reference tooth chart for additional findings. Oral Cancer Risk: Low Risk Oral Hygiene Instructions: Galax two times daily, modified tay technique, Floss daily, Soft bristle toothbrush, Galax Tongue Caries Risk Assessment: Low- no risk factor Assessment/Plan PAD and perio eval 6 Mo Periodic exam Patient tolerated procedure well, all questions answered and expressed understanding. Dismissed in good condition. NV: PAD and perio eval 6 MO periodic exam Hydro Sprayer Operator: Isabel Wells Dentist: Aissatou Peralta DDS documented in this encounter Plan of Treatment Upcoming Encounters Date Type Department Care Team (Late st Contact Info) Description 07/21/2024 9:30 AM EDT Office Visit [facility] MEDICINE [address] [place] [phone] Maryanne Seals MD [address] [place] [phone] 09/14/2024 3:00 PM EDT Office Visit [facility] ADULT DENTAL [address] [place] [phone] Deb Farmer Scheduled Orders Name Type Priority Associated Diagnoses Orde r Schedule PROPHYLAXIS - ADULT Dental Routine 1 Occ urrences starting 06/01/2024 documented as of this encounter Procedures Procedure Name Priority Date/Time Associated Diagnosis Comments PERIODIC ORAL EVALUATION - ESTABLISHED PATIENT Routine 06/01/2024 1:30 PM EST INTRAORAL - PERIAPICAL FIRST RADIOGRAPHIC IMAGE Routine 06/01/2024 1:30 PM EST INTRAORAL - PERIAPICAL EACH ADDITIONAL RADIOGRAPHIC IMAGE Routine 06/01/2024 1:30 PM EST INTRAORAL - PERIAPICAL EACH ADDITIONAL RADIOGRAPHIC IMAGE Routine 06/01/2024 1:30 PM EST INTRAORAL - PERIAPICAL EACH ADDITIONAL RADIOGRAPHIC IMAGE Routine 06/01/2024 1:30 PM EST INTRAORAL - PERIAPICAL EACH ADDITIONAL RADIOGRAPHIC IMAGE Routine 06/01/2024 1:30 PM EST INTRAORAL - PERIAPICAL EACH ADDITIONAL RADIOGRAPHIC IMAGE Routine 06/01/2024 1:30 PM EST INTRAORAL - PERIAPICAL EACH ADDITIONAL RADIOGRAPHIC IMAGE Routine 06/01/2024 1:30 PM EST INTRAORAL - PERIAPICAL EACH ADDITIONAL RADIOGRAPHIC IMAGE Routine 06/01/2024 1:30 PM EST CASE PRESENTATION, DETAILED AND EXTENSIVE TREATMENT PLANNING Routine 06/01/2024 1:30 PM EST documented in this encounter Visit Diagnoses Diagnosis Teeth missing- Primary Acquired absence of teeth, unspecified Encounter for dental examination Rotated tooth documented in this encounter Additional Health Concerns Assessment Noted Time PHQ-9 Depression Total Score: 2 06/08/19 24 10:16 AM EST documented as of this encounter Care Teams Blade Balancer Relationship Specialty Start Date End Date Maryanne Seals MD [address] [place] [phone] PCP - General Internal Medicine 10/16/22 documented as of this encounter
--- OUTSIDE RECORDS SUMMARY | 2024-06-21 16:56 | XMS_ITS | Clinical Summary ---
Author Organization [employer] Address [address] [facility] 7 [place] [address] Care Team Providers Care Stripper Color Name Role Phone Maryanne Seals MD Primary Care Pro vider Allergies No known active allergies Medications omega-3 (fish oil) 1000 MG capsule Take 1 capsule (1,000 mg) by mouth Once per day. 90 capsule 4 01/31/20 25 Active fluticasone (Flonase Allergy Relief) 50 MCG/ACT nasal spray Administer 1 spray into each nostril Once per day. Shake gently. Before first use, prime pump. After use, clean tip and replace cap. 16 g 1 5 06/13/19 26 Active cetirizine (ZyrTEC) 10 MG tablet Take 1 tablet (10 mg) by mouth Once per day. Prn. 30 tablet 5 07/13/19 25 Active diphenhydrAMINE (BENADryl) 25 MG capsule Take 2 capsules (50 mg) by mouth every 8 (eight) hours if needed for itching. May take 1-2 capsules prn itching 30 capsule 5 06/13/19 26 Active Active Problems Problem Noted Date Diagnosed [...] HPV cotest q 5 years. Mammogram: Per [facility] screening start age 45, earlier if risk [...] Encounters Date Type Department Care Team Description 06/12/2024 1:40 PM EST Office Visit [facility] [address] [place] [phone] Ashish Washington MD Influenza-like symptoms (Primary Dx); Acute URI 06/01/2024 1:30 PM EST Office Visit [facility] [address] [place] [phone] Aissatou Peralta DDS Teeth missing (Primary Dx); Encounter for dental examination; Rotated tooth 05/23/2024 Orders Only GENERIC EXTERNAL DATA DEPARTMENT Provider, Generic External Data 05/16/[address] [facility] [address] [place] [address] Maryanne Seals MD Appointment Request from Last [...] Sign Reading Time Taken Comments Blood Pressure 134/84 06/12/2024 1:08 PM EST Pulse 86 06/12/2024 1:08 PM EST Temperature 36.8 ??C (98.2 ??F) 06/12/2024 1:08 PM ES T Respiratory Rate 17 06/12/2024 1:08 PM EST Oxygen Saturation 99% 06/12/2024 1:08 PM EST Inhaled Oxygen Concentration - - Weight 59.1 kg (130 lb 6.4 oz) 06/12/2024 1:08 P M EST Height 152.4 cm (5') 01/31/2024 1:45 PM EDT Body Mass Index 25.47 01/31/2024 1:45 PM EDT Plan of Treatment Upcoming Encounters Date Type Department Care Team (Late st Contact Info) Description 07/21/2024 9:30 AM EDT Office Visit [facility] [address] [place] [phone] Maryanne Seals MD [address] [place] [phone] 09/14/2024 3:00 PM EDT Office Visit [facility] [address] [place] [phone] Deb Farmer Health Maintenance Due Date Last Done Comments CT Colonography 1965 Colonoscopy 1965 Colorectal Cancer Screening 1965 FIT DNA/Cologuard 1965 FIT 1965 FOBT 1965 Sigmoidoscopy 1965 Alcohol/Substance Use Screening 1975 Pneumococcal Vaccine: 50+ Years (1 of 1 - PCV) 12/26/2013 Zoster Vaccines (2 of 2) 04/02/2021 02/05/2021 Dental Prophylaxis 04/08/2022 10/06/2021, 1 05/21/2018, 09/14/2018 Dental X-Ray: Bitewings 10/07/2022 10/06/2021, 06/22 SDOH Screening 06/01/2024 06/01/2023 Depression Screening 06/08/2024 06/08/2023, 06/08/19 Diabetes: Hemoglobin A1C 07/22/2024 024, 08/06/2022, 06/05/2020, Additional history exists Dental X-Ray: Full Mouth 10/07/2024 10/06/2021, 06/10 Dental Oral Exam 11/30/2024 06/01/2024, 10/2021, 06/22/2018 Tobacco Screening 06/12/2025 06/12/2024 DTaP/Tdap/Td Vaccines (2 - Td or Tdap) [...] topic Meningococcal Vaccine Aged Out No jovani marta eligible based on patient's age to complete this topic RSV under 20 months Aged Out No longe r eligible based on patient's age to complete this topic Rotavirus Vaccines Aged Out No longer eligible based on patient's age to complete this topic Procedures Procedure Name Priority Date/Time Associated Diagnosis Comments POCT INFLUENZA B (ID NOW RAPID MOLECULAR) Routine 06/12/2024 1:22 PM EST Acute URI POCT INFLUENZA A (ID NOW RAPID MOLECULAR) Routine 06/12/2024 1:22 PM EST Acute URI POCT RAPID STREP A Routine 06/12/2024 1: 22 PM EST Acute URI POCT RAPID COVID ANTIGEN Routine 06/12/2024 1:22 PM EST Acute URI CASE PRESENTATION, DETAILED AND EXTENSIVE TREATMENT PLANNING Routine 06/01/2024 1:30 PM EST INTRAORAL - [...] RADIOGRAPHIC IMAGE Routine 06/01/2024 1:30 PM EST PERIODIC ORAL EVALUATION - ESTABLISHED PATIENT Routine 06/01/2024 1:30 PM EST SARS COV2/INFLUENZA A/B AND RSV RNA QL [...] 10:19 AM EDT HM PAP/HPV Routine 10/08/2021 PROPHYLAXIS - ADULT Routine 10/06/2021 1 2:00 AM EDT INTRAORAL - COMPLETE SERIES OF RADIOGRAPHIC IMAGES Routine 10/06/2021 12:00 AM EDT from Last 3 Months or Most Recently Relevant to Health Maintenance Results * Influenza B (ID NOW Rapid Molecular) (06/12/2024 1:22 PM EST) Influenza B Negative Negative, Indeterminate [facility] Swab 06/12/2024 1:22 PM EST Ashish Washington MD POINT OF CARE TEST ENTER/EDIT OR DERABLES Final Result Performing Organization Address [facility] Co de Phone Number [facility] [address] [place], [place] [phone] * Influenza A (ID NOW Rapid Molecular) (06/12/2024 1:22 PM EST) Influenza A Negative Negative, Indeterminate [facility] Swab 06/12/2024 1:22 PM EST us Ashish Washington MD POINT OF CARE TEST ENTER/EDIT OR DERABLES Final Result Performing Organization Address [facility] Co de Phone Number [facility] [address] [place] [phone] * POCT Rapid COVID Ag (06/12/2024 1:22 PM EST) Rapid COVID Ag Negative [facility] Swab 06/12/2024 1:22 PM EST us Ashish Washington MD POINT OF CARE TEST ENTER/EDIT OR DERABLES Final Result Performing Organization Address City/[facility]/ZIP Co de Phone Number [facility] [address] [place] [address] [phone] * POCT rapid strep A manually resulted (06/12/2024 1:22 PM EST) Rapid Strep A Screen Negative Negative, None Detected [facility] Swab 06/12/2024 1:22 PM EST us Ashish Washington MD POINT OF CARE TEST ENTER/EDIT OR DERABLES Final Result Performing Organization Address [facility] Co de Phone Number [facility] [address] [place] [address] [phone] * SARS-CoV-2 RNA, Influenza A/B, and RSV RNA, Ql NAAT (05/23/2024 9:03 PM EST) Pathologist [facility] Influenza A PCR NEGATIVE Negative [facility] Influenza B PCR NEGATIVE Negative [facility] Resp Syncy Virus RNA Qual PCR NEGATIVE Negative [facility] SARS COV2 PCR NEGATIVE Negative [facility] Comment:All test results mus t be [...] use by authorized laboratories.Testing performed on the [employer] GeneXpert utilizingreal-time RT-PCR.All SARS CoV2 and positive influenza A/B results arereported to [facility]. 05/23/2024 9:03 PM EST 05/23/2024 9:06 PM EST us Generic External Data Provider LAB MICROBIOLOGY - GENERAL ORDERABLES Final Result [facility] [address] [facility] [facility] [address] [place] [address] [phone] * BI Mammogram Screening Tomosynthesis Bilateral (02/07/2024 3:50 PM EDT) Anatomical Region Laterality Modality Breast Bilateral Mammography 02/07/2024 3:50 PM EDT Narrative 02/16/2024 10:31 AM EST ? [facility] [place] ? [address] ?[place] [address] ? Mammography Report ? Signed ? Patient: Ribeiro,Orlando ?MR#: [id number] ?? [id number] ? : 1965 ?Acct:[id number] ? Age/Sex: 58 / F ?ADM Date: 02/07/24 ? Loc: HO.MAMMO ? Attending Dr: Maryanne Fam MD ? Ordering Physician: Arthur Roldan MD ?Results: 1Negativ ?? e ? Date of Service: 02/07/24 ?Follow Up: 1 Year From Orig ?? inal Mammogram ? Procedure(s): MM tomosynthesis screening BI ?? Accession Number(s): [id number] ? cc: Maryanne Seals MD; Arthur Roldan [...] ??Sakina Calderon DO ??02/16/2024 10:29 AM EST ? Dictated By: ?Sakina Calderon DO ? Signed By: ?<Electronically signed by Sakina Calderon, DO in OV> ? 02/16/24 1029 ? DD/ 1550 ? TD/TT: 02/07/24 1613 ? Associate Trainer: ? Procedure Note Mariluz Lua - 02/16/2024 [facility] [address] [place] [address] [place]. [place], [place] [address] Mammography Report Signed Patient: Salma Ribeiro#: [id number] : 1965Acct:[id number] Age/Sex: 58 / FADM Date: 02/07/24 Loc: MAMMO Attending Dr: Maryanne Fam MD Ordering Physician: Arthur Roldanesults: 1Negativ e Date of Service: 02/07/24Follow Up: 1 Year From Orig inal Mammogram Procedure(s): MM tomosynthesis screening BI Accession Number(s): [id number] cc: Maryanne Seals MD; Arthur Rlodan MD EXAMINATION: MM SCREENING DIGITAL BREAST TOMOSYNTHESIS, [...] 02/16/24 1029 DD/ 1550 TD/TT: 02/07/24 1613 Associate Trainer: [facility] External Provider IMG BI PROCEDURES Edited Result - Final * Hepatitis C Antibody with Reflex to HCV, RNA, Quantitative, Real-Time PCR (07/23/2023 10:21 AM EDT) Hepatitis C Antibody Nonreactive Nonreactive [facility] Comment:Antibodies to HCV no t detected; does not exclude early acuteHCV infection. Blood Venous blood specimen / Unknown 07/23/2023 10:21 AM EDT 07/23/2023 11:25 AM EDT Maryanne Fam MD LAB BLOOD ORDERAB LES Final Result [facility] [address] [place] [phone] [phone] * HIV-1/2 Antigen and Antibodies, Fourth Generation, with Reflexes (07/23/2023 10:21 AM EDT) HIV AB/AG Nonreactive Nonreactive [facility] Comment:HIV-1 p24 Ag and/or HIV-1/HIV-2 Ab not detected.A test result that is nonreactive does not exclude thepossibility of exposure to or infection with HIV-1 and/orHIV-2. Nonreactive results in this assay for individualswith prior exposure to HIV-1 and/or HIV-2 may be due toantigen and antibody levels that are below the limit ofdetection of this assay.The [employer] HIV Ag/Ab Combo assay result andsupplemental assay results should be interpreted inconjunction with the patient's clinical presentation,history and other laboratory results. If the results areinconsistent with clinical evidence, additional testing issuggested to confirm the result. Blood Venous blood specimen / Unknown 07/23/2023 10:21 AM EDT 07/23/2023 11:25 AM EDT us Maryanne Fam MD LAB BLOOD ORDERAB LES Final Result Performing Organization Address [facility] Co de Phone Number [facility] [address] [place] [phone] * Hemoglobin A1c (07/23/2023 10:21 AM EDT) Hemoglobin A1c 5.7 <6.0 % [facility] Comment:Hemoglobin A1C Refer ence Range Adults: 4.8 - 6.0 % Non diabetic: < 6.0 % Goal: < 7.0 %Additional Action Suggested: > 8.0 %Note: Hemoglobin A1c results are invalid for patients with abnormal amounts of HbF. Blood transfusions may impact the HbA1c concentration in the patient sample. Estimated Average Glucose 117 mg/dL [facility] Comment:eAG = Estimated ave rage glucose which is %A1C expressed asaverage glucose, using the formula of the L3Z-ZgftgwuPmselko Glucose study (ADAG), Diabetes Care, Vol.31,#8,2007 Blood Venous blood specimen / Unknown 07/23/2023 10:21 AM EDT 07/23/2023 11:29 AM EDT us Maryanne Fam MD LAB BLOOD ORDERAB LES Final Result Performing Organization Address City/[facility]/ZIP Co de Phone Number [facility] [address] [place] [address] [phone] * HPV E6/E7 RFLX NIKOS 16 18/45 (10/08/2021 10:19 AM EDT) Pathologist [facility] HPV 16 RNA [facility] HPV 18/45 RNA [facility] HPV E6 E7 ADD [facility] HPV mRNA E6/E7 rflx Not Detected Not Detected [facility] Comment: Methodology: Typing Teacher-Mediated Amplification This assay detects E6/E7 viral messenger RNA (mRNA) from 14 high-risk HPV types (16,18,31,33,35,39,45,51,52,56,58,59,66,68). Cervical sources are required for HPV testing. If a vaginal source from a patient who has had a total hysterectomy with removal of cervix was submitted, please contact the testing laboratory for alternative testing options. For additional information, please refer to http://education.[employer].AIM/faq/QYM240c4 (This link if provided for information/ educational purposes only.) THIS TEST WAS PERFORMED AT: [facility] [address] [place] [address] FLO[address] [place], [place] [phone] SERENA HARRIS MD 10/08/2021 10:1 9 AM EDT us Arthur Roldan MD HISTORICAL/NON ORDERABLE LABS Fi nal Result Performing Organization Address City/[facility]/ZIP Co de Phone Number [facility] [address] [place] [phone] * Hm Pap Smear (10/08/2021) us Historical Provider HEALTH MAINTENANCE Final Result from Last 3 Months or Most Recently Relevant to Health Maintenance Insurance [facility] C3 [facility] MEDICAID STAND ADULT * Guarantor: Ana Ribeiro Account Type Relation to Patient Date of Phone Billing Address Personal/Family Self [address] Care Teams Stripper Color Relationship Specialty Start Date End Date Maryanne Seals MD [address] [place] [address] PCP - General Internal Medicine 10/16/22
--- OUTSIDE RECORDS SUMMARY | 2024-06-21 16:56 | XMS_ITS | Encounter Summary ---
Author Organization [email or web address] Address [address] [facility] 7t [place] [address] Care Team Providers Care System Controller Name Role Phone Maryanne Seals MD Primary Care Pro vider Encounter Details Date Type Department Care Team (Late st Contact Info) Description 05/23/2024 Orders Only [...] Description 07/21/2024 9:30 AM EDT Office Visit [facility] [address] [place] [address] [phone] Maryanne Seals MD [address] [place], [place] [phone] 09/14/2024 3:00 PM EDT Office Visit [facility] [address] [place] [address] [phone] Deb Farmer documented as of this encounter Procedures Procedure Name Priority Date/Time Associated Diagnosis Comments SARS COV2/INFLUENZA A/B AND RSV RNA QL NAAT Routine 05/23/2024 9:03 PM EST documented in this encounter Results * SARS-CoV-2 RNA, Influenza A/B, and RSV RNA, Ql NAAT (05/23/2024 9:03 PM EST) Influenza A PCR NEGATIVE Negative [facility] Influenza B PCR NEGATIVE Negative [facility] Resp Syncy Virus RNA Qual PCR NEGATIVE Negative [facility] SARS COV2 PCR NEGATIVE Negative [facility] Comment:All test results mus t [...] use by authorized laboratories.Testing performed on the [employer] GeneXpert utilizingreal-time RT-PCR.All SARS CoV2 and positive influenza A/B results arereported to [facility]. 05/23/2024 9:03 PM EST 05/23/2024 9:06 PM EST us Generic External Data Provider LAB MICROBIOLOGY - GENERAL ORDERABLES Final Result [facility] [address] [place] [phone] [phone] documented in this encounter Visit Diagnoses Not on filedocumented in this encounter Additional Health Concerns Assessment Noted Time PHQ-9 Depression Total Score: 2 06/08/19 24 10:16 AM EST documented as of this encounter Care Teams System Controller Relationship Specialty Start Date End Date Maryanne Seals MD [address] [place] [phone] PCP - General Internal Medicine 10/16/22 documented as of this encounter
--- OUTSIDE RECORDS SUMMARY | 2024-06-21 16:56 | XMS_ITS | Encounter Summary ---
Author Organization [employer] Address [address] [facility] 7t [place] [address] Care Team Providers Care Pet Store Merchandiser Name Role Phone Maryanne Seals MD Primary Care Pro vider Reason for Visit * Reason Comments Sore Throat Cough Encounter Details Date Type Department Care Team ([facility] st Contact Info) Description 06/12/2024 1:40 PM EST Office Visit [facility] [address] [place] [address] [phone] Ashish Washington MD [address] [place], [place] [phone] Influenza-like symptoms (Primary Dx); Acute URI Social History Tobacco Use Types Packs/Day Years [...] with others, in a hotel, in a fci, living outside on the street, on a [...] AM EDT documented as of this encounter Last Filed Vital Signs Vital Sign Reading [...] oz) 06/12/2024 1:08 P M EST Height - - Body Mass Index 25.47 01/31/2024 1:45 PM EDT documented in this encounter Progress Notes * Ashish Washington MD - 06/12/2024 1:40 PM EST Subjective Patient ID: Ana Ribeiro is a 58 y.o. female. Grain Trimmer: Harvey. HPI Ana has 2 week h/o itchy throat, mild cough, nasal congestion. Yesterday had tactile fever and chills, occasional SOB. No n/v/d. Tried OTC from for cold sx. Lives with daughter. Not employed. Never smoked. Patient Active Problem List Diagnosis Health care maintenance Hyperlipidemia Abnormal echocardiogram History of uterine fibroid Allergic rhinitis Prediabetes The following portions of the chart were reviewed this encounter and updated as appropriate: Tobacco Allergies Meds Problems Med Hx Surg Hx Fam Hx Review of Systems Constitutional: Negative for fever. HENT: Positive for postnasal drip. Respiratory: Positive for cough. Negative for shortness of breath. Cardiovascular: Negative for chest pain. Gastrointestinal: Negative for abdominal pain. Skin: Negative for rash. Neurological: Negative for headaches. Objective Physical Exam Constitutional: Appearance: Normal appearance. HENT: Right Ear: Tympanic membrane, ear canal and external ear normal. Left Ear: Tympanic membrane, ear canal and external ear normal. Nose: Nose normal. Mouth/Throat: Mouth: Mucous membranes are moist. Pharynx: Oropharynx is clear. Eyes: Conjunctiva/sclera: Conjunctivae normal. Pupils: Pupils are equal, round, and reactive to light. Cardiovascular: Rate and Rhythm: Normal rate and regular rhythm. Heart sounds: No murmur heard. Pulmonary: Effort: Pulmonary effort is normal. Breath sounds: Normal breath sounds. Musculoskeletal: General: Normal range of motion. Cervical back: No tenderness. Skin: Findings: No rash. Neurological: Mental Status: She is alert. Gait: Gait is intact. Psychiatric: Mood and Affect: Mood normal. Behavior: Behavior normal. Procedures Assessment/Plan Diagnoses and all orders for this visit: Influenza-like symptoms Negative rapid Covid and Influenza tests. Rapid Strep test negative. Advised to try Tylenol that she has at home. Prescribed Flonase, Zyrtec, Benadryl. rtc if not improving. - POCT Rapid COVID Ag - POCT rapid strep A manually resulted - Influenza A (ID NOW Rapid Molecular) - Influenza B (ID NOW Rapid Molecular) Other orders - fluticasone (Flonase Allergy Relief) 50 MCG/ACT nasal spray; Administer 1 spray into each nostrilOnce per day. Shake gently. Before first use, prime pump. After use, clean tip and replace cap. - cetirizine (ZyrTEC) 10 MG tablet; Take 1 tablet (10 mg) by mouth Once per day. Prn. - diphenhydrAMINE (BENADryl) 25 MG capsule; Take 2 capsules (50 mg) by mouth every 8 (eight) hours if needed for itching. May take 1-2 capsules prn itching documented in this encounter Plan of Treatment Upcoming Encounters Date Type Department Care Team (Late st Contact Info) Description 07/21/2024 9:30 AM EDT Office Visit [facility] [address] [place] [address] Maryanne Seals MD [address] [place] [address] 09/14/2024 3:00 PM EDT Office Visit [facility] [address] [place] [address] Deb Farmer documented as of this encounter Procedures Procedure Name Priority Date/Time Associated Diagnosis Comments POCT INFLUENZA B (ID NOW RAPID MOLECULAR) Routine 06/12/2024 1:22 PM EST Acute URI POCT INFLUENZA A (ID NOW RAPID MOLECULAR) Routine 06/12/2024 1:22 PM EST Acute URI POCT RAPID COVID ANTIGEN Routine 06/12/2024 1:22 PM EST Acute URI POCT RAPID STREP A Routine 06/12/2024 1: 22 PM EST Acute URI documented in this encounter Results * Influenza B (ID NOW Rapid Molecular) (06/12/2024 1:22 PM EST) Pathologist [facility] Influenza B Negative Negative, Indeterminate [facility] Swab 06/12/2024 1:22 PM EST Ashish Washington MD POINT OF CARE TEST ENTER/EDIT OR DERABLES Final Result [facility] [address] [place] [address] [phone] * Influenza A (ID NOW Rapid Molecular) (06/12/2024 1:22 PM EST) Pathologist [facility] Influenza A Negative Negative, Indeterminate [facility] Swab 06/12/2024 1:22 PM EST us Ashish Washington MD POINT OF CARE TEST ENTER/EDIT OR DERABLES Final Result Performing Organization Address [facility] de Phone Number [facility] [address] [place] [phone] * POCT rapid strep A manually resulted (06/12/2024 1:22 PM EST) Rapid Strep A Screen Negative Negative, None Detected [facility] Swab 06/12/2024 1:22 PM EST Ashish Washington MD POINT OF CARE TEST ENTER/EDIT OR DERABLES Final Result Performing Organization Address [facility] Phone Number [facility] [address] [place] [phone] * POCT Rapid COVID Ag (06/12/2024 1:22 PM EST) Rapid COVID Ag Negative [facility] Swab 06/12/2024 1:22 PM EST us Ashish Washington MD POINT OF CARE TEST ENTER/EDIT OR DERABLES Final Result Performing Organization Address [facility] Number [facility] [address] [place] [phone] documented in this encounter Visit Diagnoses Diagnosis Influenza-like symptoms- Primary Other general symptoms Acute URI Acute upper respiratory infections of unspecified site documented in this encounter Additional Health Concerns Assessment Noted Time PHQ-9 Depression Total Score: 2 06/08/19 24 10:16 AM EST documented as of this encounter Care Teams Pet Store Merchandiser Relationship Specialty Start Date End Date Maryanne Seals MD [address] [place] [phone] PCP - General Internal Medicine 10/16/22 documented as of this encounter
== END 2024-06-21 15:00 | disposition home or self-care (01) ==
LOC: HO.HCS 14:22
PROVIDERS: PCP Student in an Organized Health Care Education/Training Program; Visit Provider Internal Medicine
DX: R94.31 Abnormal electrocardiogram [ECG] [EKG] (principal); R93.1 Abnormal findings on diagnostic imaging of heart and coronary circulation; Z82.49 Family history of ischemic heart disease and other diseases of the circulatory system
CPT/HCPCS: 93010; 99214

== ENCOUNTER → 2024-06-21 14:22 | Outpatient (BNVA) | payer MEDICAID, SELFPAY | PROVIDERS: PCP Student in an Organized Health Care Education/Training Program; Visit Provider Internal Medicine | DX: R93.1 Abnormal findings on diagnostic imaging of heart and coronary circulation (principal); Z82.49 Family history of ischemic heart disease and other diseases of the circulatory system | CPT/HCPCS: 93005; 99212 ==

== ENCOUNTER → 2024-07-06 13:15 | Outpatient (REF) | payer MEDICAID, SELFPAY ==
--- NOTE | 2024-07-06 13:17 | CA_ITS ---
Transthoracic Echocardiogram Patient (Last, First, Middle): Ana Ribeiro, Gender: Female Date of : 1965 Age: 58 Procedure Date: 07/06/2024 Procedure Type: Transthoracic Echocardiogram Location: OP Height: 152.4 cm Weight: 58.06 kg BSA: 1.54 m2 Heart Rate: 81 bpm BP: 132 / 80 mmHg Photo Mask Cleaner: SB Referring MD: Wilfrido Bucio MD Maid Housekeeper: Dileep Javier MD Symptoms: I25.10 - Atherosclerotic heart disease of [place] coronary artery without... Study Quality: Adequate ECG Rhythm: Sinus Conclusions: - 1. Normal LV ejection fraction of 65-70% with grade 1 diastolic dysfunction 2. Normal cardiac valvular Dopplers 3. No gross pericardial effusion Findings Left Ventricle Normal left ventricular size, thickness, and systolic function. The visually estimated ejection fraction is between 65-70%. Spectral Doppler is indicative of an impaired relaxation filling pattern. E/E prime ratio is <8, consistent with normal filling pressures. Evidence suggests grade I (mild) diastolic dysfunction. Wall Motion Rest Echo Findings The basal inferior, basal inferoseptal, and basal inferolateral segments are hypokinetic. All other scored wall segments showed normal motion. Right Ventricle Normal right ventricular cavity size and systolic function. Atria Both atria are normal in size. There is no evidence of interatrial shunt. Aortic Valve Normal aortic valve structure and function. There is no aortic valve stenosis. There is no aortic valve regurgitation. Mitral Valve Normal mitral valve structure and function. There is trace mitral valve regurgitation. There is no mitral valve stenosis. Pulmonic Valve The pulmonic valve was not well visualized. Tricuspid Valve Likely normal tricuspid valve structure and function. Tricuspid regurgitation envelope is inadequate for calculation of right ventricular systolic pressure. Normal right atrial pressure. Great Vessels All visible segments of the aorta are normal in size. The pulmonary artery was not well visualized. There is no dilatation of the ascending aorta measuring 2.90 cm. Small plaque is seen in the sino tubular ridge. Venous The inferior vena cava is normal in size and collapses greater than 50% with inspiration. Pericardium/Pleural There is no evidence of pericardial effusion. Measurements 2D Linear Measurements IVSd: 0.73 0.6-0.9/0.6-1.0 cm LVIDd: 4.27 3.9-5.3/4.2-5.9 cm LVIDd Index: 2.77 2.4-3.2/2.2-3.1 cm/m2 LVIDs: 3.22 2.0-3.6 cm LVPWd: 0.81 0.7-1.1 cm LA Diam: 3.00 2.7-3.8/3.0-4.0 cm LAIDs Index: 1.95 1.5-2.3 cm/m2 LV Mass: 123.21 67-162/88-224 g LV Mass Index: 80.01 43-95/49-115 g/m2 LVOT Diam: 1.90 3.0+(-)1.3 cm 2D Systolic Function EF 4C: 57.60 >55% EF 2C: 73.70 >55% EF BiP: 66.20 >55% Mitral Valve MV Pk E: 0.80 MV PK A: 0.91 MV Decel Time: 157.00 E/A: 0.90 E'Lateral: 7.72 E'Medial: 5.22 E/E' Med: 15.30 E/E' Lat: 10.30 PHT: 46.00 MVA PHT: 4.78 Decel [place]: 5.09 Aortic Valve AoV Pk Sea: 1.24 AoV Pk Grad: 6.00 ROSALINA: 2.61 LVOT LVOT Pk Sea: 1.13 LVOT Mn Sea: 0.68 LVOT VTI: 0.19 LVOT Pk Grad: 5.00 LVOT Mn Grad: 2.00 LVOT Diam: 1.90 LVOT Area: 2.84 Diastolic Function MV Pk E: 0.80 MV Pk A: 0.91 E/A: 0.90 E'Medial: 5.22 E/E' Med: 15.30 E' Laterial: 7.72 E/E' Lat: 10.30 Right Ventricle TAPSE (mm): 22.60 TVS' Sea: 12.50 Tricuspid Valve RA Press: 3.00 Great Vessels Aorta Sinus of Valsalva: 2.60 2.0-3.5 cm Ao Asc: 2.90 2.1-3.4 cm Pulmonary Veins Pulm Vein S/D 1.80 Pulmonary Valve PV Pk Sea: 0.86 Peak PV Grad: 3.00 Updated in Other Vendor System with Status of Final Dileep Javier MD electronically signed on 07/07/2024 4:21:51 PM with status of Final
== END ==
LOC: HO.CARD 13:15
PROVIDERS: PCP Student in an Organized Health Care Education/Training Program; Visit Provider Internal Medicine
DX: I25.10 Atherosclerotic heart disease of native coronary artery without angina pectoris (principal)
CPT/HCPCS: 93306

== ENCOUNTER → 2024-07-06 13:17 | Outpatient (BNV) | payer MEDICAID, SELFPAY | PROVIDERS: PCP Student in an Organized Health Care Education/Training Program; Visit Provider Internal Medicine Cardiovascular Disease | DX: I42.8 Other cardiomyopathies (principal); I25.10 Atherosclerotic heart disease of native coronary artery without angina pectoris | CPT/HCPCS: 93306 ==

== ENCOUNTER 2024-07-10 15:53 | Outpatient (REF) | payer MEDICAID, SELFPAY ==
--- NOTE | ~2024-07-10 | US_ITS ---
EXAMINATION: US KIDNEY BILATERAL HISTORY: Abdominal pain TECHNIQUE: Real-time grayscale ultrasound imaging of the kidneys was performed and images were reviewed. COMPARISON: There are no prior studies for comparison. FINDINGS: Right kidney: The right kidney measures 9.6 x 5.1 x 5.3 cm. Renal parenchymal echotexture and thickness are normal. There is a 10 x 8 x 12 mm cyst at the upper pole demonstrating calcification. There is no hydronephrosis or renal calculi. Left Kidney: The left kidney measures 9.7 x 5.1 x 4.7 cm. Renal parenchymal echotexture and thickness are normal. There are no masses. There is no hydronephrosis or renal calculi. US/US renal BI IMPRESSION: 10 x 8 x 12 mm right upper pole cyst demonstrating wall calcification. Follow-up is recommended. Otherwise unremarkable renal ultrasound. Electronically signed by: Anthony Genao MD 07/11/2024 07:20 AM EDT
--- OUTSIDE RECORDS SUMMARY | 2024-07-10 17:45 | XMS_ITS | Encounter Summary ---
Author Organization [facility] Address [address] [place] [address] Care Team Providers Care Payroll And Benefits Specialist Name Role Phone Doretha Hayes Primary Care Provider [phone]- [phone] Maryanne Seals MD Primary Care Pro vider Encounter Details Date Type Department Care Team (Latest Contact Info) Description 10/06/2021 Abstract [facility] CONVERSIONS Dental, Provider, DDS Social History Tobacco [...] Description 07/21/2024 9:30 AM EDT Office Visit [facility] MEDICINE [address] [place] [phone] Maryanne Seals MD [address] [place] [phone] 09/14/2024 3:00 PM EDT Office Visit [facility] ADULT DENTAL [address] [place] [address] [phone] Deb Farmer documented as of this encounter Visit Diagnoses Not on filedocumented in this encounter Care Teams Payroll And Benefits Specialist Relationship Specialty Start Date End Date Doretha Hayes FNP PCP - General Family Medicine 09/23/21 10/15/22 Maryanne Seals MD [address] [place] [phone] PCP - General Internal Medicine 10/16/22 documented as of this encounter
--- OUTSIDE RECORDS SUMMARY | 2024-07-10 17:45 | XMS_ITS | Encounter Summary ---
Author Organization [employer] [facility] Address [address] [place] [address] Care Team Providers Care Interim Controller Name Role Phone Maryanne Seals MD Primary Care Pro vider Encounter Details Date Type Department Care Team (Late st Contact Info) Description 01/06/2023 Orders Only [facility] MEDICINE [address] [place] [address] [phone] ProviderLaura MD Social History Tobacco Use Types [...] Description 07/21/2024 9:30 AM EDT Office Visit [facility] MEDICINE [address] [place] [address] [phone] Maryanne Seals MD [address] [place] [address] [phone] 09/14/2024 3:00 PM EDT Office Visit [facility] ADULT DENTAL [address] [place] [address] [phone] Deb Farmer documented as of this encounter Procedures Procedure Name Priority Date/Time Associated Diagnosis Comments HM PAP/HPV Routine 10/08/2021 PAP/HPV Routine 02/26/2020 documented in this encounter Results * Pap Smear (10/08/2021) us Historical Provider HEALTH MAINTENANCE Final Result * Pap Smear (02/26/2020) us Historical Provider HEALTH MAINTENANCE Final Result documented in this encounter Visit Diagnoses Not on filedocumented in this encounter Care Teams Interim Controller Relationship Specialty Start Date End Date Maryanne Seals MD [address] [place] [phone] PCP - General Internal Medicine 10/16/22 documented as of this encounter
--- OUTSIDE RECORDS SUMMARY | 2024-07-10 17:45 | XMS_ITS | Encounter Summary ---
Author Organization [employer] [facility] Address [address] [place] [address] Care Team Providers Care Control Chemist Name Role Phone Doretha Hayes Primary Care Provider +1- [phone] Maryanne Seals MD Primary Care Pro vider Encounter Details Date Type Department Care Team (Latest Contact Info) Description 09/14/2018 Abstract [facility] CONVERSIONS Dental, Provider, DDS Social History [...] EDT Office Visit [facility] MEDICINE [address] [place] [phone] Maryanne Seals MD [address] [place] [phone] 09/14/2024 3:00 PM EDT Office Visit [facility] ADULT DENTAL [address] [place] [address] [phone] Deb Farmer documented as of this encounter Visit Diagnoses Not on filedocumented in this encounter Care Teams Control Chemist Relationship Specialty Start Date End Date Doretha Hayes FNP PCP - General Family Medicine 09/23/21 10/15/22 Maryanne Seals MD [address] [place] [phone] PCP - General Internal Medicine 10/16/22 documented as of this encounter
--- OUTSIDE RECORDS SUMMARY | 2024-07-10 17:45 | XMS_ITS | Clinical Summary ---
Author Organization [employer] Address [address] [facility] 7 [place] [address] Care Team Providers Care Body Shop Technician Name Role Phone Maryanne Seals MD Primary [...] Encounters Date Type Department Care Team Description 06/23/2024 Population Health Risk Score Community Care [facility] () Department [address] [place] [address] [phone] Provider, Population Health Generic 06/12/2024 1:40 PM EST Office Visit [facility] [address] [place] [address] Ashish Washington MD Influenza-like symptoms (Primary Dx); Acute URI 06/01/2024 1:30 PM EST Office Visit [facility]ULT [facility] [address] [place] [address] Aissatou Peralta DDS Teeth missing (Primary Dx); Encounter for dental examination; Rotated tooth 05/23/2024 Orders Only GENERIC EXTERNAL DATA DEPARTMENT Provider, Generic External Data 05/16/2024 Telephone [facility] [address] [place] [address] Maryanne Seals MD Appointment Request from Last [...] with others, in a hotel, in a half-way, living outside on the street, on a [...] 9:30 AM EDT Office Visit [facility] [address] [place] [phone] Maryanne Seals MD [address] [place] [phone] 09/14/2024 3:00 PM EDT Office Visit [facility] [address] [place] [address] [phone] Deb Farmer Health Maintenance Due Date Last [...] PM EST) Influenza B Negative Negative, Indeterminate [facility] Swab 06/12/2024 1:22 PM EST us Ashish Washington MD POINT OF CARE TEST ENTER/EDIT OR DERABLES Final Result Performing Organization Address [facility]/ZIP Co de Phone Number [facility] [address] [place] [phone] * Influenza A (ID NOW Rapid Molecular) (06/12/2024 1:22 PM EST) Influenza A Negative Negative, Indeterminate [facility] Swab 06/12/2024 1:22 PM EST us Ashish Washington MD POINT OF CARE TEST ENTER/EDIT OR DERABLES Final Result Performing Organization Address [facility]/ZIP Co de Phone Number [facility] [address] [place] [phone] * POCT Rapid COVID Ag (06/12/2024 1:22 PM EST) Rapid COVID Ag Negative [facility] Swab 06/12/2024 1:22 PM EST us Ashish Washington MD POINT OF CARE TEST ENTER/EDIT OR DERABLES Final Result Performing Organization Address [facility] Co de Phone Number [facility] [address] [place] [phone] * POCT rapid strep A manually resulted (06/12/2024 1:22 PM EST) [facility] Rapid Strep A Screen Negative Negative, None Detected [facility] Swab 06/12/2024 1:22 PM EST us Ashish Washington MD POINT OF CARE TEST ENTER/EDIT OR DERABLES Final Result Performing Organization Address [facility] de Phone Number [facility] [address] [place] [phone] * SARS-CoV-2 RNA, Influenza A/B, and RSV RNA, Ql NAAT (05/23/2024 9:03 PM EST) [facility] Influenza A PCR NEGATIVE Negative [facility] Influenza B PCR NEGATIVE Negative [facility] Resp Syncy Virus RNA Qual PCR NEGATIVE Negative [facility] SARS COV2 PCR NEGATIVE Negative [facility] Comment:All test results mus t [...] use by authorized laboratories.Testing performed on the [employer] GeneXpert utilizingreal-time RT-PCR.All SARS CoV2 and positive influenza A/B results arereported to [facility]. 05/23/2024 9:03 PM EST 05/23/2024 9:06 PM EST us Generic External Data Provider LAB MICROBIOLOGY - GENERAL ORDERABLES Final Result [facility] [address] [place] [phone] * BI Mammogram Screening Tomosynthesis Bilateral (02/07/2024 3:50 PM EDT) Anatomical Region Laterality Modality Breast Bilateral Mammography 02/07/2024 3:50 PM EDT Narrative 02/16/2024 10:31 AM EST ? [facility] ? [address] ?[place] [address] ? Mammography Report ? Signed ? Patient: Ribeiro,Chesterton ?MR#: [id number] ?? [id number] ? : 1965 ?Acct:[id number] ? Age/Sex: 58 / F ?ADM Date: 10/28/24 ? Loc: HO.MAMMO ? Attending Dr: Maryanne Fam MD ? Ordering Physician: Arthur Roldan MD ?Results: 1Negativ ?? e ? Date of Service: 02/06/24 ?Follow Up: 1 Year From Orig ?? inal Mammogram ? Procedure(s): MM tomosynthesis screening BI ?? Accession Number(s): [id number] ? cc: Maryanne Seals MD; Arthur Roldan [...] ? Signed By: ?<Electronically signed by Sakina Calderon DO in OV> ? 02/16/24 1029 ? DD/ 1550 ? TD/TT: 02/07/24 1613 ? Bullard Machine Operator: ? Procedure Note Mariluz Lua - 02/16/2024 [facility] [address] [place] [address] [place] [address] Mammography Report Signed Patient: Salma Ribeiro#: [id number] : 1965Acct:[id number] Age/Sex: 58 / FADM Date: 02/07/24 Loc: HO.MAMMO Attending Dr: Maryanne Fam MD Ordering Physician: Arthur Roldan MDResults: 1Negativ e Date of Service: 02/07/24Follow Up: 1 Year From Orig inal Mammogram Procedure(s): MM tomosynthesis screening BI Accession Number(s): [id number] cc: Maryanne Seals MD; Arthur Roldan MD [...] 02/16/24 1029 DD/ 1550 TD/TT: 02/07/24 1613 Bullard Machine Operator: us [facility] External Provider IMG BI PROCEDURES Edited Result - Final * Hepatitis C Antibody with Reflex to HCV, RNA, Quantitative, Real-Time PCR (07/23/2023 10:21 AM EDT) Hepatitis C Antibody Nonreactive Nonreactive [facility] Comment:Antibodies to HCV no t detected; does not exclude early acuteHCV infection. Blood Venous blood specimen / Unknown 07/23/2023 10:21 AM EDT 07/23/2023 11:25 AM EDT us Maryanne Fam MD LAB BLOOD ORDERAB LES Final Result Performing Organization Address [facility] Co de Phone Number [facility] [address] [place] [phone] * HIV-1/2 Antigen and Antibodies, Fourth Generation, with Reflexes (07/23/2023 10:21 AM EDT) HIV AB/AG Nonreactive Nonreactive [facility] Comment:HIV-1 p24 Ag and/or HIV-1/HIV-2 Ab not detected.A test result that is nonreactive does not exclude thepossibility of exposure to or infection with HIV-1 and/orHIV-2. Nonreactive results in this assay for individualswith prior exposure to HIV-1 and/or HIV-2 may be due toantigen and antibody levels that are below the limit ofdetection of this assay.The [employer] HIV Ag/Ab Combo assay result andsupplemental assay results should be interpreted inconjunction with the patient's clinical presentation,history and other laboratory results. If the results areinconsistent with clinical evidence, additional testing issuggested to confirm the result. Blood Venous blood specimen / Unknown 07/23/2023 10:21 AM EDT 07/23/2023 11:25 AM EDT us Maryanne aFm MD LAB BLOOD ORDERAB LES Final Result Performing Organization Address City/[facility]/ZIP Co de Phone Number [facility] [address] [place] [phone] * Hemoglobin A1c (07/23/2023 10:21 AM EDT) Hemoglobin A1c 5.7 <6.0 % [facility] Comment:Hemoglobin A1C Refer ence Range Adults: 4.8 - 6.0 % Non diabetic: < 6.0 % Goal: < 7.0 %Additional Action Suggested: > 8.0 %Note: Hemoglobin A1c results are invalid for patients with abnormal amounts of HbF. Blood transfusions may impact the HbA1c concentration in the patient sample. Estimated Average Glucose 117 mg/dL [facility] Comment:eAG = Estimated ave rage glucose which is %A1C expressed asaverage glucose, using the formula of the [id number] Glucose study (ADAG), Diabetes Care, Vol.31,#8,Nov. 2007 Blood Venous blood specimen / Unknown 07/23/2023 10:21 AM EDT 07/23/2023 11:29 AM EDT us Maryanne Fam MD LAB BLOOD ORDERAB LES Final Result [facility] [address] [place] [phone] * HPV E6/E7 RFLX NIKOS 16 18/45 (10/08/2021 10:19 AM EDT) HPV 16 RNA [facility]NP [facility] HPV 18/45 RNA [facility] HPV E6 E7 ADD [facility]NP [facility] HPV mRNA E6/E7 rflx Not Detected Not Detected [facility] Comment: Methodology: Sash Finisher-Mediated Amplification This assay detects E6/E7 viral messenger RNA (mRNA) from 14 high-risk HPV types (16,18,31,33,35,39,45,51,52,56,58,59,66,68). Cervical sources are required for HPV testing. If a vaginal source from a patient who has had a total hysterectomy with removal of cervix was submitted, please contact the testing laboratory for alternative testing options. For additional information, please refer to http://education.[employer]/faq/WUF825q8 (This link if provided for information/ educational purposes only.) THIS TEST WAS PERFORMED AT: [facility] [address] [place] [address] [address] [place], [place] ??[phone] SERENA HARRIS MD 10/08/2021 10:1 9 AM EDT us Arthur Roldan MD HISTORICAL/NON ORDERABLE LABS Fi nal Result [facility] [address] * Hm Pap Smear (10/08/2021) us Historical Provider MD HEALTH MAINTENANCE Final Result from Last 3 Months or Most Recently Relevant to Health Maintenance Insurance [facility] C3 DENTAL-[facility] MEDICAID STAND ADULT Care Teams Body Shop Technician Relationship Specialty Start Date End Date Maryanne Seals MD [address] [place] [phone] PCP - General Internal Medicine 10/16/22
== END 2024-07-10 15:54 | disposition home or self-care (01) ==
LOC: HO.US 15:53
PROVIDERS: PCP Student in an Organized Health Care Education/Training Program; Visit Provider Student in an Organized Health Care Education/Training Program
DX: R10.9 Unspecified abdominal pain (principal)
CPT/HCPCS: 76775

== ENCOUNTER → 2024-07-10 15:56 | Outpatient (BNV) | payer MEDICAID, SELFPAY | PROVIDERS: PCP Student in an Organized Health Care Education/Training Program; Visit Provider Radiology Diagnostic Radiology | DX: N28.1 Cyst of kidney, acquired (principal) | CPT/HCPCS: 76775 ==

== ENCOUNTER 2024-07-12 07:29 | Emergency (ER) | payer MEDICAID, SELFPAY ==
--- NOTE | ~2024-07-12 | XR_ITS ---
EXAMINATION: XR CHEST CLINICAL INFORMATION: chest pain COMPARISON: 10/20/2022. TECHNIQUE: 2 views of the chest were obtained. FINDINGS: The cardiac, hilar, and mediastinal contours are normal. The lungs are clear bilaterally. There is no pneumothorax or pleural effusion. There is no focal osseous or soft tissue abnormality. XR/XR chest 2V IMPRESSION: No active pulmonary disease. Electronically signed by: Romero Welch MD 07/12/2024 10:15 AM EDT
--- NOTE | 2024-07-12 07:30 | ECG_ITS ---
Test Reason : chest pain Blood Pressure : */* mmHG Vent. Rate : 74 BPM Atrial Rate : 74 BPM P-R Int : 180 ms QRS Dur : 80 ms QT Int : 356 ms P-R-T Axes : 39 9 11 degrees QTcB Int : 395 ms Normal sinus rhythm Normal ECG When compared with ECG of 20-Oct-2022 22:20, No significant change was found Referred By: Generic ED Physician Electronically Signed By: NAILA BARNETT
[2024-07-12 07:35] VITALS: BP 150/90; PULSE 78; RESP 20; TEMP 36.6; O2SAT 99; BMI 25.1
[2024-07-12 07:49] LABS: MANUAL DIFF FLAG NO
[2024-07-12 07:54] LABS: Basophils Percent Auto 0.6 % (0-2); Eosinophils Absolute Auto 0.1 X10*3/uL (0.0-0.4); Eosinophils Percent Auto 2.7 % (0-4); Hematocrit 39.5 % (37.0-47.0); Hemoglobin 13.2 g/dl (12.0-16.0); Imm Gran Abs Auto 0.01 X10*3/uL (0.00-0.03); Imm Gran Pct Auto 0.2 % (0.0-0.4); Lymphocytes Percent Auto 37.5 % (20-40); Mean Corpuscular HGB Conc 33.4 g/dl (31.0-35.0); Mean Corpuscular Hemoglobin 30.3 pg (27.0-33.0); Mean Corpuscular Volume 90.6 fL (80.0-98.0); Mean Platelet Volume 9.9 fL (9.4-12.3); Monocytes Absolute Auto 0.4 X10*3/uL (0.1-1.2); Monocytes Percent Auto 7.1 % (2-11); Neutrophils Absolute Auto 2.7 x10*3/uL (2.0-8.3); Neutrophils Percent Auto 51.9 % (45-73); Platelet Count 303 X10*3/uL (160-400); Red Blood Count 4.36 X10*6/uL (4.20-5.50); White Blood Count 5.2 X10*3/uL (4.8-10.8)
[2024-07-12 08:06] LABS: Alanine Aminotransferase 22 U/L (0-31); Albumin Level 4.3 g/dL (3.5-5.0); Alkaline Phosphatase 89 U/L (39-117); Anion Gap 11 (12-20); Aspartate Amino Transferase 20 U/L (5-31); Bilirubin Total 0.4 mg/dL (0.0-1.0); Blood Urea Nitrogen 15 mg/dL (9-16); Calcium 9.5 mg/dL (8.4-10.2); Carbon Dioxide 29 mmol/L (22-29); Chloride 108 mmol/L (96-108); Creatinine Clr Calc Pharmacy 68.2; Estimated Glomerular Filt Rate > 60; Glucose Random 109 mg/dL (60-115); Potassium 4.6 mmol/L (3.3-5.1); Sodium 143 mmol/L (135-145); Total Protein 7.1 g/dL (6.5-8.0)
--- NOTE | 2024-07-12 08:07 | ED_ITS ---
HPI - Chest Pain General Chief Complaint: Chest Pain Stated Complaint: Chest pain, back pain Time Seen by Provider: 07/12/24 07:48 Source: patient Mode of arrival: ambulatory Limitations: no limitations History of Present Illness HPI narrative: this is 58 years old presented to the emergency department complaining of chest pain she states she woke up this morning about 630 with chest pain radiated to the shoulder. Pain is gone now. Pain was worse with movement of the shoulder. Patient as no history of diabetes she is nonsmoker she has no history of hypertension she has no history of hypercholesterolemia MD complaint: chest pain Onset (ago): hour(s) (2) Timing of current episode: now resolved Onset: during rest Pain location: substernal Pain radiation: right shoulder Severity: mild Quality: aching Relieving factors: nothing Exacerbating factors: movement Risk Factors Coronary artery disease risk factors: family history of CAD before age 50 Thoracic aortic dissection risk factors: none Related Data Home Medications ?Medication ?Instructions ?Recorded ?Confirmed omeprazole 20 mg capsule,delayed 20 mg PO DAILY 01/12/22 06/21/24 release omega-3 300 mg-dha 120 mg-epa 180 1 cap PO DAILY 06/21/24 06/21/24 mg-fish oil 1,000 mg capsule Allergies Allergy/AdvReac Type Severity Reaction Status Date / Time No Known Allergies Allergy Verified 07/12/24 07:37 [No Known Allergies*] Review of Systems 2 Constitutional: Constitutional: Reports no additional constitutional complaints Cardiovascular: Cardiovascular: Denies chest pain with activity, Denies dyspnea and Denies dyspnea on exertion Respiratory: Respiratory: Denies dyspnea and Denies dyspnea on exertion PMFSH Past Medical History Medical History 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 I (cervical intraepithelial neoplasia I) Surgical History History of esophagogastroduodenoscopy (EGD) Hx of colonoscopy Family History Family History Mother Colon cancer Brother Bladder cancer Sister Liver cancer Father CAD (coronary artery disease) Social History Social History Household Members Other:: daughter Housing: Apartment Alcohol intake: current Alcohol intake frequency: holidays/special occasions only Patient Tobacco Use Status: Never used Tobacco Smoked in Last 30 Days: No Use of substances other than those prescribed or required for medical reasons: No Advance Directives: No Advance Directives Information Provided: Yes Do you have a plan to hurt others: No Plan Patient : No Current occupational status: unemployed Sexual orientation: Straight/Heterosexual Gender identity: Female Physical Exam 2 Vital Signs: Vital Signs: Last Vital Signs Temp 98.1 F 07/12/24 09:31 Pulse 70 07/12/24 09:31 Resp 18 07/12/24 09:31 BP 124/76 07/12/24 09:31 Pulse Ox 98 07/12/24 09:31 O2 Del Method Room Air 07/12/24 09:31 BMI result Body Mass Index 25.1 patient looks well n Const: General: cooperative, comfortable, no acute distress and well developed Nutritional Appearance: average body habitus Orientation/consciousness: p atient oriented x3 Limitations: no limitations HEENT: Head: Yes normal to inspection Ears: hearing grossly normal bilaterally Face and sinus: Yes normal facial exam Neck: Neck: Yes normal visual inspection, Yes full ROM and Yes no lymphadenopathy Chest: Chest palpation & inspection: normal inspection of the chest Resp: Effort & Inspection: normal respiratory effort Auscultation: clear to auscultation bilaterally Cardio: Jugular venous distension: no JVD Rate: regular rate GI: Inspection: Yes normal to inspection Skin: General skin exam: no rashes or lesions noted and elasticity normal L esions: no lesions Rashes: no rashes Neuro: General: patient oriented x3 Cranial nerves: Yes CN's II-XII intact bilaterally Course Reevaluation(s) Reevaluation #1: Patient is feeling better she is remain chest pain-free, delta troponin is flat chest x-ray is normal electrocardiogram normal I think she can be discharged home she can follow-up with the primary care physician and her medical administrative assistant as well Time: 11:34 Medical Decision Making Medical Decision Making [facility] Narrative: patient presented with chest pain and now resolved the pain is somewhat atypical change with movement, it is reasonable to check EKG I sensitive troponin Differential Diagnosis Differential Diagnoses: The differential diagnosis associated with the presentation includes musculoskeletal pain/ACS/pericarditis Admission/Observation Consideration of admission/observation: Escalation of care including admission/observation considered Lab Data [facility] Lab Attestation statement: I reviewed the patient's lab results. 07/12/24 07:44 07/12/24 07:44 Labs: Lab Results 07/12/24 07/12/24 Range/Units 07:44 10:41 WBC 5.2 (4.8-10.8) X10*3/uL RBC 4.36 (4.20-5.50) X10*6/uL Hgb 13.2 (12.0-16.0) g/dl Hct 39.5 (37.0-47.0) % MCV 90.6 (80.0-98.0) fL MCH 30.3 (27.0-33.0) pg MCHC 33.4 (31.0-35.0) g/dl RDW 12.0 (11.0-16.0) % Plt Count 303 (160-400) X10*3/uL MPV 9.9 (9.4-12.3) fL Immature Gran % (Auto) 0.2 (0.0-0.4) % Neut % (Auto) 51.9 (45-73) % Lymph % (Auto) 37.5 (20-40) % [place] % (Auto) 7.1 (2-11) % Eos % (Auto) 2.7 (0-4) % Baso % (Auto) 0.6 (0-2) % Lymph # (Auto) 2.0 (1.2-4.9) X10*3/uL [place] # (Auto) 0.4 (0.1-1.2) X10*3/uL Eos # (Auto) 0.1 (0.0-0.4) X10*3/uL Baso # (Auto) 0.0 (0.0-0.2) X10*3/uL Abs Immat Gran (auto) 0.01 (0.00-0.03) X10*3/uL Absolute Neuts (auto) 2.7 (2.0-8.3) x10*3/uL Absolute Nucleated RBC 0.000 (0.0-0.012) X10*3/uL Nucleated RBC % (auto) 0.0 (0.0-0.2) /100WBC Sodium 143 (135-145) mmol/L Potassium 4.6 (3.3-5.1) mmol/L Chloride 108 (96-108) mmol/L Carbon Dioxide 29 (22-29) mmol/L Anion Gap 11 L (12-20) BUN 15 (9-16) mg/dL Creatinine 0.70 (0.5-1.4) mg/dL Estim Creat Clear Calc 68.2 Estimated GFR > 60 Random Glucose 109 (60-115) mg/dL Calcium 9.5 (8.4-10.2) mg/dL Total Bilirubin 0.4 (0.0-1.0) mg/dL AST 20 (5-31) U/L ALT 22 (0-31) U/L Alkaline Phosphatase 89 (39-117) U/L Troponin I High Sens < 2.7 < 2.7 (<3.5-17.0) ng/L Total Protein 7.1 (6.5-8.0) g/dL Albumin 4.3 (3.5-5.0) g/dL Independent Interpretation I performed an independent interpretation of an: EKG and Plain X-Ray Interpretation: EKG shows sinus rhythm rate [address]-T changes normal EKG Chest x-ray no acute disease Radiology Impression Discussion of test interpretation with radiology: I have reviewed the radiologist's reading. Discharge Plan Discharge Clinical Impression: Chest pain Qualifiers: Chest pain type: unspecified Qualified Code(s): R07.9 - Chest pain, unspecified Patient Disposition: Home, Self-Care Instructions: Chest Pain (DC) Additional Instructions: Follow-up with your primary care physician your blood test for heart attack was normal you electrocardiogram was normal, return to the emergency room if you worse Prescriptions: No Action omeprazole 20 mg capsule,delayed release(DR/EC) 20 mg PO DAILY omega 4-lyr-fmy-fish oil 300 mg (120 mg- 180mg)-1,000 mg capsule 1 cap PO DAILY Referrals: Maryanne Seals MD [Primary Care Provider] - 2 days Print Language: Citizen Of [place]
[2024-07-12 08:16] LABS: Troponin-I High Sensitivity < 2.7 ng/L (<3.5-17.0)
[2024-07-12 08:20] VITALS: BP 143/81; PULSE 74; RESP 16; TEMP 36.7; O2SAT 95
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
--- OUTSIDE RECORDS SUMMARY | 2024-07-12 09:03 | XMS_ITS | Encounter Summary ---
Author Organization [facility] Address [address] [place] [address] Care Team Providers Care Ironworker Apprentice Name Role Phone Maryanne Seals MD Primary Care Pro vider Encounter Details Date Type Department Care Team (Late st Contact Info) Description 01/06/2023 Orders Only [facility] [address] [place] [address] [phone] ProviderLaura MD Social History Tobacco Use Types [...] Description 07/21/2024 9:30 AM EDT Office Visit [facility] [address] [place] [address] [phone] Maryanne Seals MD [address] [place] [address] [phone] 09/14/2024 3:00 PM EDT Office Visit [facility] [address] [place] [address] [phone] Deb Farmer documented as of this encounter Procedures Procedure Name Priority Date/Time Associated Diagnosis Comments HM PAP/HPV Routine 10/08/2021 PAP/HPV Routine 02/26/2020 documented in this encounter Results * Pap Smear (10/08/2021) us Historical Provider HEALTH MAINTENANCE Final Result * Pap Smear (02/26/2020) us Historical Provider HEALTH MAINTENANCE Final Result documented in this encounter Visit Diagnoses Not on filedocumented in this encounter Care Teams Ironworker Apprentice Relationship Specialty Start Date End Date Maryanne Seals MD [address] [place] [id number] PCP - General Internal Medicine 10/16/22 documented as of this encounter
--- OUTSIDE RECORDS SUMMARY | 2024-07-12 09:03 | XMS_ITS | Clinical Summary ---
Author Organization [employer] Address [address] [facility] 7 [place] [address] Care Team Providers Care Systems Coordinator Name Role Phone Maryanne Seals MD Primary [...] Once per day. Prn. 30 tablet 5 Active diphenhydrAMINE (BENADryl) 25 MG capsule Take [...] Encounters Date Type Department Care Team Description 07/12/2024 Orders Only GENERIC EXTERNAL DATA DEPARTMENT Provider, Generic External Data 06/23/2024 Population Health Risk Score [facility] Department [address] [place] [address] [phone] Provider, Population Health Generic 06/12/2024 1:40 PM EST Office Visit [facility] [address] [place] [address] Ashish Washington MD Influenza-like symptoms (Primary Dx); Acute URI 06/01/2024 1:30 PM EST Office Visit [facility] [address], [place] [phone] Aissatou Peralta DDS Teeth missing (Primary Dx); Encounter for dental examination; Rotated tooth 05/23/2024 Orders Only GENERIC EXTERNAL DATA DEPARTMENT Provider, Generic External Data 05/16/2024 Telephone [facility] [address], [place] [phone] Maryanne Seals MD Appointment Request from Last [...] with others, in a hotel, in a snf, living outside on the street, on a [...] Description 07/21/2024 9:30 AM EDT Office Visit [facility] [address] [place] [phone] Maryanne Seals MD [address] [place] [phone] 09/14/2024 3:00 PM EDT Office Visit [facility] [address] [place] [phone] Deb Farmer Health Maintenance Due Date Last [...] Procedure Name Priority Date/Time Associated Diagnosis Comments HIGH SENSITIVITY TROPONIN I Routine 07/12/2024 7:44 AM EDT COMPREHENSIVE METABOLIC PANEL Routine 07/12/2024 7:44 AM EDT CBC WITH AUTO DIFFERENTIAL Routine 07/12/2024 7:44 AM EDT US RENAL BI Routine 07/10/2024 4:07 PM EDT Right flank pain POCT INFLUENZA B (ID NOW RAPID MOLECULAR) [...] Recently Relevant to Health Maintenance Results * High Sensitivity Troponin I (07/12/2024 7:44 AM EDT) TROPONIN I HIGH SENSITIVITY <2.7 <3.5 - 17.0 ng/L [facility] Comment:The [place]ar[place] high sens itivity Troponin-I results should beused in conjunction with other diagnostic information suchas ECG, clinical observations and information, and patientsymptoms to aid in the diagnosis of [place]. 07/12/2024 7:44 AM EDT 07/12/2024 7:48 AM EDT us Generic External Data Provider LAB BLOOD ORDERAB LES Final Result [facility] [address], [place] [phone] * CBC auto differential (07/12/2024 7:44 AM EDT) White Blood Count 5.2 4.8 - 10.8 X10*3/uL [facility] Red Blood Count 4.36 4.20 - 5.50 X10*6/uL [facility] Hemoglobin 13.2 12.0 - 16.0 g/dl [facility] Hematocrit 39.5 37.0 - 47.0 % [facility] Mean Corpuscular Volume 90.6 80.0 - 98.0 fL [facility] Mean Corpuscular Hemoglobin 30.3 27.0 - 33.0 pg [facility] Mean Corpuscular HGB Conc 33.4 31.0 - 35.0 g/dl [facility] Red Cell Distribution Width 12.0 11.0 - 16.0 % [facility] Platelet Count 303 160 - 400 X10*3/uL [facility] Mean Platelet Volume 9.9 9.4 - 12.3 fL [facility] Neutrophils Percent Auto 51.9 45 - 73 % [facility] Imm Gran Pct Auto 0.2 0.0 - 0.4 % [facility] Lymphocytes Percent Auto 37.5 20 - 40 % [facility] Monocytes Percent Auto 7.1 2 - 11 % [facility] Eosinophils Percent Auto 2.7 0 - 4 % [facility] Basophils Percent Auto 0.6 0 - 2 % [facility] NRBC Pct Auto 0.0 0.0 - 0.2 /100WBC [facility] Neutrophils Absolute Auto 2.7 2.0 - 8.3 x10*3/uL [facility] Imm Gran Abs Auto 0.01 0.00 - 0.03 X10*3/uL [facility] Lymphocytes Absolute Auto 2.0 1.2 - 4.9 X10*3/uL [facility] Monocytes Absolute Auto 0.4 0.1 - 1.2 X10*3/uL [facility] Eosinophils Absolute Auto 0.1 0.0 - 0.4 X10*3/uL [facility] Basophils Absolute Auto 0.0 0.0 - 0.2 X10*3/uL [facility] NRBC Abs Auto 0.000 0.0 - 0.012 X10*3/uL [facility] 07/12/2024 7:44 AM EDT 07/12/2024 7:48 AM EDT us Generic External Data Provider LAB BLOOD ORDERAB LES Final Result [facility] [address] [place] [phone] * (ABNORMAL) Comprehensive Metabolic Panel (07/12/2024 7:44 AM EDT) Sodium 143 135 - 145 mmol/L [facility] Potassium 4.6 3.3 - 5.1 mmol/L [facility] Chloride 108 96 - 108 mmol/L [facility] Carbon Dioxide 29 22 - 29 mmol/L [facility] Anion Gap 11(L) 12 - 20 [facility] Urea Nitrogen (BUN) 15 9 - 16 mg/dL [facility] Creatinine, Serum 0.70 0.5 - 1.4 mg/dL [facility] Creatinine Clr Calc Pharmacy 68.2 [facility] Comment:Provided height and weight: 152.4 cm,58.2 kg.eGFR (calculated from the MDRD study equation) and eCrCl(calculated from the Cockcroft-Gault equation) are based ondifferent parameters and may not yield comparable results.If eCrCl result is absurd, please check patient'sheight/weight. Estimated Glomerular Filt Rate >60 [facility] Comment:Chronic Kidney Disea se: Estimated GFR < 60 mL/min/1.16d2Kmcqwy Kidney Disease: Estimated GFR < 15 mL/min/1.73m2 Glucose 109 60 - 115 mg/dL [facility] Calcium 9.5 8.4 - 10.2 mg/dL [facility] Bilirubin, Total 0.4 0.0 - 1.0 mg/dL [facility] Aspartate Amino Transferase 20 5 - 31 U/L [facility] Alanine Aminotransferase 22 0 - 31 U/L [facility] Total Protein 7.1 6.5 - 8.0 g/dL [facility] Albumin Level 4.3 3.5 - 5.0 g/dL [facility] Alkaline Phosphatase 89 39 - 117 U/L [facility] 07/12/2024 7:44 AM EDT 07/12/2024 7:48 AM EDT us Generic External Data Provider LAB BLOOD ORDERAB LES Final Result Performing Organization Address City/State/[facility] Co de Phone Number [facility] [address] [place] [phone] * US RENAL BI (07/10/2024 4:07 PM EDT) Anatomical Region Laterality Modality Abdomen Ultrasound 07/10/2024 4:07 PM EDT Narrative 07/11/2024 7:22 AM EDT ? [facility] ?[address] ?[place] [address] ? Ultrasound Report ? Signed ? Patient: Ribeiro,Paradise ?MR#: [id number] ?? [id number] ? : 1965 ?Acct:[id number] ? Age/Sex: 58 / F ?ADM Date: 07/10/ ? Loc: HO.US ? Attending Dr: Maryanne Fam MD ? Ordering Physician: Maryanne Seals MD ?? Date of Service: 07/10/24 ?? Procedure(s): US renal BI ?? Accession Number(s): [id number] ? cc: Maryanen Seals MD ? EXAMINATION: ??US KIDNEY BILATERAL ? HISTORY: Abdominal pain ? TECHNIQUE: Real-time grayscale ultrasound imaging of the kidneys was ?? performed and images were reviewed. ? COMPARISON: There are no prior studies for comparison. ? FINDINGS: ? Right kidney: ??The right kidney measures 9.6 x 5.1 x 5.3 cm. ??Renal ?? parenchymal echotexture and thickness are normal. ??There is a 10 x 8 x ?? 12 mm cyst at the upper pole demonstrating calcification. ??There is no ?? hydronephrosis or renal calculi. ? Left Kidney: ??The left kidney measures 9.7 x 5.1 x 4.7 cm. ??Renal ?? parenchymal echotexture and thickness are normal. ??There are no masses. ?? There is no hydronephrosis or renal calculi. ? US/US renal BI ?? IMPRESSION: ? 10 x 8 x 12 mm right upper pole cyst demonstrating wall calcification. ?? Follow-up is recommended. Otherwise unremarkable renal ultrasound. ? Electronically signed by: ??Anthony Genao MD ??07/11/2024 07:20 AM EDT ? Dictated By: ?Anthony eGnao MD ? Signed By: ?<Electronically signed by Anthony Genao MD in OV> ?07/11/24 0720 ? DD/ 1607 ? TD/TT: 07/10/24 1620 ? Florist Helper: ? Procedure Note Stoney, Mariluz - 07/11/2024 [place] [address] Ultrasound Report Signed Patient: Salma Ribeiro#: [id number] : 1965Acct:[id number] Age/Sex: 58 / FADM Date: 07/10/24 Loc: HO.US Attending Dr: Maryanne Fam MD Ordering Physician: Maryanne Seals MD Date of Service: 07/10/24 Procedure(s): US renal BI Accession Number(s): [id number] cc: Maryanne Seals MD EXAMINATION: US KIDNEY BILATERAL HISTORY: Abdominal pain TECHNIQUE: Real-time grayscale ultrasound imaging of the kidneys was performed and images were reviewed. COMPARISON: There are no prior studies for comparison. FINDINGS: Right kidney: The right kidney measures 9.6 x 5.1 x 5.3 cm. Renal parenchymal echotexture and thickness are normal. There is a 10 x 8 x 12 mm cyst at the upper pole demonstrating calcification. There is no hydronephrosis or renal calculi. Left Kidney: The left kidney measures 9.7 x 5.1 x 4.7 cm. Renal parenchymal echotexture and thickness are normal. There are no masses. There is no hydronephrosis or renal calculi. US/US renal BI IMPRESSION: 10 x 8 x 12 mm right upper pole cyst demonstrating wall calcification. Follow-up is recommended. Otherwise unremarkable renal ultrasound. Electronically signed by: Anthony Genao MD 07/11/2024 07:20 AM EDT RP Dictated By: Anthony Genao MD Signed By: <Electronically signed by Anthony Genao MD in OV> 07/11/24 0720 DD/ 1607 TD/TT: 07/10/24 1620 Florist Helper: Maryanne Fam MD IMG US PROCEDURES Final Result * Influenza B (ID NOW Rapid Molecular) (06/12/2024 1:22 PM EST) Influenza B Negative Negative, Indeterminate [facility] Swab 06/12/2024 1:22 PM EST Ashish Washington MD POINT OF CARE TEST ENTER/EDIT OR DERABLES Final Result Performing Organization Address City/[facility]/ZIP Co de Phone Number [facility] [address] [place] [place] [phone] * Influenza A (ID NOW Rapid Molecular) (06/12/2024 1:22 PM EST) Influenza A Negative Negative, Indeterminate [facility] Swab 06/12/2024 1:22 PM EST Ashish Washington MD POINT OF CARE TEST ENTER/EDIT OR DERABLES Final Result Performing Organization Address City/[facility]/ZIP Co de Phone Number [facility] [address] [place] [place] [phone] * POCT Rapid COVID Ag (06/12/2024 1:22 PM EST) [facility] Rapid COVID Ag Negative [facility] Swab 06/12/2024 1:22 PM EST us Ashish Washington MD POINT OF CARE TEST ENTER/EDIT OR DERABLES Final Result Performing Organization Address [facility] Co de Phone Number [facility] [address] [place] [phone] * POCT rapid strep A manually resulted (06/12/2024 1:22 PM EST) [facility] Strep A Screen Negative Negative, None Detected [facility] Swab 06/12/2024 1:22 PM EST us sAhish Washington MD POINT OF CARE TEST ENTER/EDIT OR DERABLES Final Result Performing Organization Address [facility] de Phone Number [facility] [address] [place] [phone] * SARS-CoV-2 RNA, Influenza A/B, and RSV RNA, Ql NAAT (05/23/2024 9:03 PM EST) [facility] Influenza A PCR NEGATIVE Negative [facility] Influenza B PCR NEGATIVE Negative [facility] Resp Syncy Virus RNA Qual PCR NEGATIVE Negative [facility] SARS COV2 PCR NEGATIVE Negative [facility] Comment:All test results mus t [...] use by authorized laboratories.Testing performed on the Cepheid GeneXpert utilizingreal-time RT-PCR.All SARS CoV2 and positive influenza A/B results arereported to [facility]. 05/23/2024 9:03 PM EST 05/23/2024 9:06 PM EST us Generic External Data Provider LAB MICROBIOLOGY - GENERAL ORDERABLES Final Result [facility] [address] [place] [phone] * BI Mammogram Screening Tomosynthesis Bilateral (02/07/2024 3:50 PM EDT) Anatomical Region Laterality Modality Breast Bilateral Mammography 02/07/2024 3:50 PM EDT Narrative 02/16/2024 10:31 AM EST ? [facility] [place] ? [address] ?[place] [address] ? Mammography Report ? Signed ? Patient: Ribeiro,Paradise ?MR#: [id number] ?? [id number] ? : 1965 ?Acct:[id number] ? Age/Sex: 58 / F ?ADM Date: 10/28/24 ? Loc: HO.MAMMO ? Attending Dr: Maryanne Fam MD ? Ordering Physician: Arthur Roldan MD ?Results: 1Negativ ?? e ? Date of Service: //24 ?Follow Up: 1 Year From Orig ?? inal Mammogram ? Procedure(s): MM tomosynthesis screening BI ?? Accession Number(s): [id number] ? cc: Maryanne Seals MD; Arthur Roldan [...] DD/ 1550 ? TD/TT: 02/07/24 1613 ? Florist Helper: ? Procedure Note Mariluz Lua - 02/16/2024 [facility] [address] [place] [address] Dr. [place], [place] [address] Mammography Report Signed Patient: Salma Ribeiro#: [id number] : 1965Acct:[id number] Age/Sex: 58 / FADM Date: 02/07/24 Loc: HO.MAMMO Attending Dr: Maryanne Fam MD Ordering Physician: Arthur Roldan MDResults: 1Negativ e Date of Service: 02/07/24Follow Up: 1 Year From Orig ina Mammogram Procedure(s): MM tomosynthesis screening BI Accession Number(s): [id number] cc: Maryanne Seals MD; Arthur Roldan MD [...] 02/16/24 1029 DD/ 1550 TD/TT: 02/07/24 1613 Florist Helper: [facility] External Provider IMG BI PROCEDURES Edited Result - Final * Hepatitis C Antibody with Reflex to HCV, RNA, Quantitative, Real-Time PCR (07/23/2023 10:21 AM EDT) Hepatitis C Antibody Nonreactive Nonreactive [facility] Comment:Antibodies to HCV no t detected; does not exclude early acuteHCV infection. Blood Venous blood specimen / Unknown 07/23/2023 10:21 AM EDT 07/23/2023 11:25 AM EDT Maryanne Fam MD LAB BLOOD ORDERAB LES Final Result Performing Organization Address City/[facility]/ZIP Co de Phone Number [facility] [address] [place] [phone] * HIV-1/2 Antigen and Antibodies, Fourth Generation, with Reflexes (07/23/2023 10:21 AM EDT) HIV AB/AG Nonreactive Nonreactive [facility] Comment:HIV-1 p24 Ag and/or HIV-1/HIV-2 Ab not detected.A test result that is nonreactive does not exclude thepossibility of exposure to or infection with HIV-1 and/orHIV-2. Nonreactive results in this assay for individualswith prior exposure to HIV-1 and/or HIV-2 may be due toantigen and antibody levels that are below the limit ofdetection of this assay.The Mabaya HIV Ag/Ab Combo assay result andsupplemental assay results should be interpreted inconjunction with the patient's clinical presentation,history and other laboratory results. If the results areinconsistent with clinical evidence, additional testing issuggested to confirm the result. Blood Venous blood specimen / Unknown 07/23/2023 10:21 AM EDT 07/23/2023 11:25 AM EDT us Maryanne Fam MD LAB BLOOD ORDERAB LES Final Result Performing Organization Address City/[facility]/ZIP Co de Phone Number [facility] [address] [place] [phone] * Hemoglobin A1c (07/23/2023 10:21 AM EDT) Hemoglobin A1c 5.7 <6.0 % [facility] Comment:Hemoglobin A1C Refer ence Range Adults: 4.8 - 6.0 % Non diabetic: < 6.0 % Goal: < 7.0 %Additional Action Suggested: > 8.0 %Note: Hemoglobin A1c results are invalid for patients with abnormal amounts of HbF. Blood transfusions may impact the HbA1c concentration in the patient sample. Estimated Average Glucose 117 mg/dL [facility] Comment:eAG = Estimated ave rage glucose which is %A1C expressed asaverage glucose, using the formula of the J0V-IvuupxhNumiqza Glucose study (ADAG), Diabetes Care, Vol.31,#8,Nov. 2007 Blood Venous blood specimen / Unknown 07/23/2023 10:21 AM EDT 07/23/2023 11:29 AM EDT us Maryanne Fam MD LAB BLOOD ORDERAB LES Final Result [facility] [address] [place] [place] [phone] * HPV E6/E7 RFLX NIKOS 16 18/45 (10/08/2021 10:19 AM EDT) Pathologist [facility] HPV 16 RNA TNP [facility] HPV 18/45 RNA [facility]NP [facility] HPV E6 E7 ADD TNP [facility] HPV mRNA E6/E7 rflx Not Detected Not Detected [facility] Comment: Methodology: Informatics Nurse-Mediated Amplification This assay detects E6/E7 viral messenger RNA (mRNA) from 14 high-risk HPV types (16,18,31,33,35,39,45,51,52,56,58,59,66,68). Cervical sources are required for HPV testing. If a vaginal source from a patient who has had a total hysterectomy with removal of cervix was submitted, please contact the testing laboratory for alternative testing options. For additional information, please refer to http://education.Shaka/faq/NFT686f4 (This link if provided for information/ educational purposes only.) THIS TEST WAS PERFORMED AT: [facility] [address] [place] [address],[address] [place], [place] ??[phone] SERENA HARRIS MD 10/08/2021 10:1 9 AM EDT us Arthur Roldan MD HISTORICAL/NON ORDERABLE LABS Fi nal Result [facility] [address] * Hm Pap Smear (10/08/2021) Historical Provider HEALTH MAINTENANCE Final Result from Last 3 Months or Most Recently Relevant to Health Maintenance Insurance [facility] C3 D[facility]AL-[facility] MEDICAID STAND ADULT Care Teams Systems Coordinator Relationship Specialty Start Date End Date Maryanne Seals MD [address] [place] [phone] PCP - General Internal Medicine 10/16/22
--- OUTSIDE RECORDS SUMMARY | 2024-07-12 09:03 | XMS_ITS | Encounter Summary ---
Author Organization [facility] Address [address] [place] [address] Care Team Providers Care Supervisor Bindery Name Role Phone Doretha Hayes Primary Care Provider [phone] Maryanne Seals MD Primary Care Pro vider Encounter Details Date Type Department Care Team (Latest Contact Info) Description 10/06/2021 Abstract [facility] CONVERSIONS Dental, Provider, DDS Social History [...] Description 07/21/2024 9:30 AM EDT Office Visit [facility] [address] [place] [phone] Maryanne Seals MD [address] [place] [phone] 09/14/2024 3:00 PM EDT Office Visit [facility] [address] [place] [address] [phone] Deb Farmer documented as of this encounter Visit Diagnoses Not on filedocumented in this encounter Care Teams Supervisor Bindery Relationship Specialty Start Date End Date Doretha Hayes FNP PCP - General Family Medicine 09/23/21 10/15/22 Maryanne Seals MD [address] [place] [phone] PCP - General Internal Medicine 10/16/22 documented as of this encounter
--- OUTSIDE RECORDS SUMMARY | 2024-07-12 09:03 | XMS_ITS | Encounter Summary ---
Author Organization [facility] Address [address] [place] [address] Care Team Providers Care Greaser Helper Name Role Phone Doretha Hayes Primary Care Provider [phone]- [phone] Maryanne Seals MD Primary Care Pro vider Encounter Details Date Type Department Care Team (Latest Contact Info) Description 09/14/2018 Abstract [facility] CONVERSIONS Dental, Provider, DDS Social History Tobacco [...] 9:30 AM EDT Office Visit [facility] [address] [place] [phone] Maryanne Seals MD [address] [place] [phone] 09/14/2024 3:00 PM EDT Office Visit [facility] ADULT DENTAL [address] [place] [address] [phone] Deb Farmer documented as of this encounter Visit Diagnoses Not on filedocumented in this encounter Care Teams Greaser Helper Relationship Specialty Start Date End Date Doretha Hayes FNP PCP - General Family Medicine 09/23/21 10/15/22 Maryanne Seals MD [address] [place] [phone] PCP - General Internal Medicine 10/16/22 documented as of this encounter
--- OUTSIDE RECORDS SUMMARY | 2024-07-12 09:03 | XMS_ITS | Encounter Summary ---
Author Organization [employer] Address [address] [facility] [address] [place] [address] Care Team Providers Care Range Ecologist Name Role Phone Maryanne Seals MD Primary Care Pro vider Encounter Details Date Type Department Care Team (Late st Contact Info) Description 07/12/2024 Orders Only GENERIC EXTERNAL DATA [...] as of this encounter Miscellaneous Notes * Result Encounter Note - Maryanne Fam MD - 07/12/2024 7:55 AM EDT Labs done by outside provider documented in this encounter Plan of Treatment Upcoming Encounters Date Type Department Care Team (Late st Contact Info) Description 07/21/2024 9:30 AM EDT Office Visit [facility] MED[facility] [address] [place] [address] [phone] Maryanne Seals MD [address] [place], [place] [phone] 09/14/2024 3:00 PM EDT Office Visit [facility] [address] [place] [address] [phone] Deb Farmer documented as of this encounter Procedures Procedure Name Priority Date/Time Associated Diagnosis Comments HIGH SENSITIVITY TROPONIN I Routine 07/12/2024 7:44 AM EDT CBC WITH AUTO DIFFERENTIAL Routine 07/12/2024 7:44 AM EDT COMPREHENSIVE METABOLIC PANEL Routine 07/12/2024 7:44 AM EDT documented in this encounter Results * High Sensitivity Troponin I (07/12/2024 7:44 AM EDT) TROPONIN I HIGH SENSITIVITY <2.7 <3.5 - 17.0 ng/L [facility] Comment:The Alarcon high sens itivity Troponin-I results should beused in conjunction with other diagnostic information suchas ECG, clinical observations and information, and patientsymptoms to aid in the diagnosis of LA. 07/12/2024 7:44 AM EDT 07/12/2024 7:48 AM EDT us Generic External Data Provider LAB BLOOD ORDERAB LES Final Result [facility] [address] [place] [phone] * (ABNORMAL) Comprehensive Metabolic Panel (07/12/2024 7:44 AM EDT) Sodium 143 135 - 145 mmol/L [facility] Potassium 4.6 3.3 - 5.1 mmol/L [facility] Chloride 108 96 - 108 mmol/L [facility] Carbon Dioxide 29 22 - 29 mmol/L [facility] Anion Gap 11(L) 12 - 20 [facility] Urea Nitrogen (BUN) 15 9 - 16 mg/dL [facility] Creatinine, Serum 0.70 0.5 - 1.4 mg/dL [facility] Creatinine Clr Calc Pharmacy 68.2 [facility] Comment:Provided height and weight: 152.4 cm,58.2 kg.eGFR (calculated from the MDRD study equation) and eCrCl(calculated from the Cockcroft-Gault equation) are based ondifferent parameters and may not yield comparable results.If eCrCl result is absurd, please check patient'sheight/weight. Estimated Glomerular Filt Rate >60 [facility] Comment:Chronic Kidney Disea se: Estimated GFR < 60 mL/min/[id number] Kidney Disease: Estimated GFR < 15 mL/min/1.73m2 Glucose 109 60 - 115 mg/dL [facility] Calcium 9.5 8.4 - 10.2 mg/dL [facility] Bilirubin, Total 0.4 0.0 - 1.0 mg/dL [facility] Aspartate Amino Transferase 20 5 - 31 U/L [facility] Alanine Aminotransferase 22 0 - 31 U/L [facility] Total Protein 7.1 6.5 - 8.0 g/dL [facility] Albumin Level 4.3 3.5 - 5.0 g/dL [facility] Alkaline Phosphatase 89 39 - 117 U/L [facility] 07/12/2024 7:44 AM EDT 07/12/2024 7:48 AM EDT us Generic External Data Provider LAB BLOOD ORDERAB LES Final Result [facility] [address] [place] [address] [phone] * CBC auto differential (07/12/2024 7:44 AM EDT) White Blood Count 5.2 4.8 - 10.8 X10*3/uL [facility] Red Blood Count 4.36 4.20 - 5.50 X10*6/uL [facility] Hemoglobin 13.2 12.0 - 16.0 g/dl [facility] Hematocrit 39.5 37.0 - 47.0 % [facility] Mean Corpuscular Volume 90.6 80.0 - 98.0 fL [facility] Mean Corpuscular Hemoglobin 30.3 27.0 - 33.0 pg [facility] Mean Corpuscular HGB Conc 33.4 31.0 - 35.0 g/dl [facility] Red Cell Distribution Width 12.0 11.0 - 16.0 % [facility] Platelet Count 303 160 - 400 X10*3/uL [facility] Mean Platelet Volume 9.9 9.4 - 12.3 fL [facility] Neutrophils Percent Auto 51.9 45 - 73 % [facility] Imm Gran Pct Auto 0.2 0.0 - 0.4 % [facility] Lymphocytes Percent Auto 37.5 20 - 40 % [facility] Monocytes Percent Auto 7.1 2 - 11 % [facility] Eosinophils Percent Auto 2.7 0 - 4 % [facility] Basophils Percent Auto 0.6 0 - 2 % [facility] NRBC Pct Auto 0.0 0.0 - 0.2 /100WBC [facility] Neutrophils Absolute Auto 2.7 2.0 - 8.3 x10*3/uL [facility] Imm Gran Abs Auto 0.01 0.00 - 0.03 X10*3/uL [facility] Lymphocytes Absolute Auto 2.0 1.2 - 4.9 X10*3/uL [facility] Monocytes Absolute Auto 0.4 0.1 - 1.2 X10*3/uL [facility] Eosinophils Absolute Auto 0.1 0.0 - 0.4 X10*3/uL [facility] Basophils Absolute Auto 0.0 0.0 - 0.2 X10*3/uL [facility] NRBC Abs Auto 0.000 0.0 - 0.012 X10*3/uL [facility] 07/12/2024 7:44 AM EDT 07/12/2024 7:48 AM EDT us Generic External Data Provider LAB BLOOD ORDERAB LES Final Result Performing Organization Address City/State/[facility] Co de Phone Number [facility] [address] [place] [address] [phone] documented in this encounter Visit Diagnoses Not on filedocumented in this encounter Additional Health Concerns Assessment Noted Time PHQ-9 Depression Total Score: 2 06/08/19 24 10:16 AM EST documented as of this encounter Care Teams Range Ecologist Relationship Specialty Start Date End Date Maryanne Seals MD [address] [place] [address] PCP - General Internal Medicine 10/16/22 documented as of this encounter
[2024-07-12 09:31] VITALS: BP 124/76; PULSE 70; RESP 18; TEMP 36.7; O2SAT 98
[2024-07-12 11:15] LABS: Troponin-I High Sensitivity < 2.7 ng/L (<3.5-17.0)
[2024-07-12 12:03] VITALS: BP 124/76; PULSE 70; RESP 18; TEMP 36.7; O2SAT 98
== END 2024-07-12 12:04 | disposition home or self-care (01) ==
PROVIDERS: Emergency Provider Emergency Medicine; PCP Student in an Organized Health Care Education/Training Program
DX: R07.89 Other chest pain (principal); M54.50 Low back pain, unspecified; M25.511 Pain in right shoulder; Z79.899 Other long term (current) drug therapy
CPT/HCPCS: 36415; 71046; 80053; 84484; 85025; 93005; 99283; 99284

== ENCOUNTER → 2024-07-12 07:30 | Outpatient (BNV) | payer MEDICAID, SELFPAY | PROVIDERS: Emergency Provider Emergency Medicine; PCP Student in an Organized Health Care Education/Training Program; Visit Provider Internal Medicine | DX: R07.9 Chest pain, unspecified (principal) | CPT/HCPCS: 93010 ==

== ENCOUNTER → 2024-07-12 09:48 | Outpatient (BNV) | payer MEDICAID, SELFPAY | PROVIDERS: Emergency Provider Emergency Medicine; PCP Student in an Organized Health Care Education/Training Program; Visit Provider Radiology Diagnostic Radiology | DX: R07.9 Chest pain, unspecified (principal) | CPT/HCPCS: 71046 ==

== ENCOUNTER 2024-07-14 08:39 | Outpatient (REF) | payer MEDICAID, SELFPAY ==
[2024-07-14 11:48] LABS: Estimated Average Glucose 114 mg/dL; Hemoglobin A1C 131.6684 umol/L; Hemoglobin A1c % 5.6 % (<6.0); Total Hemoglobin (HGBA1C) 3464.6582 umol/L
[2024-07-14 12:31] LABS: Alanine Aminotransferase 21 U/L (0-31); Albumin Level 4.2 g/dL (3.5-5.0); Alkaline Phosphatase 85 U/L (39-117); Anion Gap 12 (12-20); Aspartate Amino Transferase 21 U/L (5-31); Bilirubin Total 0.5 mg/dL (0.0-1.0); Blood Urea Nitrogen 16 mg/dL (9-16); Calcium 9.4 mg/dL (8.4-10.2); Carbon Dioxide 29 mmol/L (22-29); Chloride 106 mmol/L (96-108); Cholesterol 232 mg/dL (<200); Estimated Glomerular Filt Rate > 60; Glucose Random 96 mg/dL (60-115); HDL Cholesterol 59 mg/dL (>40); LDL Cholesterol Calculated 152 mg/dL (<100); Potassium 3.6 mmol/L (3.3-5.1); Sodium 143 mmol/L (135-145); Triglycerides 106 mg/dL (<150)
== END 2024-07-14 08:40 | disposition home or self-care (01) ==
LOC: HO.HHCL 08:39
PROVIDERS: Student in an Organized Health Care Education/Training Program; Visit Provider Internal Medicine
DX: E78.5 Hyperlipidemia, unspecified (principal); R73.03 Prediabetes; R93.1 Abnormal findings on diagnostic imaging of heart and coronary circulation
CPT/HCPCS: 36415; 80053; 80061; 83036

== ENCOUNTER 2024-10-12 15:15 | Outpatient (AMB) | payer MEDICAID, SELFPAY ==
--- OUTSIDE RECORDS SUMMARY | 2024-10-12 15:17 | XMS_ITS | Encounter Summary ---
Author Organization [employer] [facility] Address [address] [place] [address] Care Team Providers Care Customer Service Associate Name Role Phone Doretha Hayes Primary Care Provider [phone] Maryanne Seals MD Primary Care Pro vider Encounter Details Date Type Department Care Team (Latest Contact Info) Description 09/14/2018 Abstract [facility] CONVERSIONS Dental, Provider, DDS Social History Tobacco [...] Care Team ( st Contact Info) Description 10/23/2024 1:15 PM EDT Office Visit [facility] MEDICINE [address] [place] [phone] Maryanne Seals MD [address] [place] [address] [phone] 10/23/2024 2:30 PM EDT Nurse Only [facility] MEDICINE [address] [place] [address] [phone] documented as of this encounter Visit Diagnoses Not on filedocumented in this encounter Care Teams Customer Service Associate Relationship Specialty Start Date End Date Doretha Hayes FNP PCP - General Family Medicine 09/23/21 10/15/22 Maryanne Seals MD [address] [place] [phone] PCP - General Internal Medicine 10/16/22 documented as of this encounter
--- NOTE | 2024-10-12 15:18 | A.OFFVIS_ITS ---
Vital Signs 10/12/24 15:20 Height 5 ft Weight 130 lb 15.273 oz BMI 25.6 BP 110/70 Blood Pressure Location Lt brachial Position Sitting Pulse 84 Pulse Source Pulse Oximeter Intake Visit Reasons: f/up CTA [facility] Wedding Day Coordinator Required: Yes Wedding Day Coordinator Language: Practice Administrator Name: [email or web address] Accompanied by: Self / Same As Patient Allergies No Known Allergies (No Known Allergies*) Allergy (Verified 07/12/24 07:37) Medication List - Last Reconciled 10/12/24 by Wilfrido Bucio MD atorvastatin (Lipitor) 10 mg PO DAILY omeprazole 20 mg PO DAILY HPI Comments Details: Ana returns for follow-up. In the past, she was seen regarding a family history of cardiovascular issues where multiple members have had significant cardiac events like myocardial infarctions in the cardiomyopathy. Hence patient came for a checkup. Random atypical chest pains but nothing clear-cut cardiac. He has undergone an echocardiogram and coronary CTA. Overall, she states she feels well. No new concerns. 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 I (cervical intraepithelial neoplasia I) Surgical History History of esophagogastroduodenoscopy (EGD) Hx of colonoscopy Family History Mother Colon cancer Brother Bladder cancer Sister Liver cancer Father CAD (coronary artery disease) Social History Household Members Other:: daughter Housing: Apartment Alcohol intake: current Alcohol intake frequency: holidays/special occasions only Patient Tobacco Use Status: Never used Tobacco Current occupational status: unemployed Sexual orientation: Straight/Heterosexual Gender identity: Female Review of Systems Const Denies chills, Denies fatigue, Denies fever(s), Denies frequent falls, Denies weakness, Denies weight gain and Denies weight loss ENT Denies dizziness Card Denies chest pain, Denies leg edema, Denies lightheadedness, Denies palpitations, Denies dyspnea and Denies dyspnea on exertion Resp Denies cough, Denies dyspnea and Denies dyspnea on exertion GI Denies hematochezia Musc Denies abnormal gait, Denies muscle weakness, Denies numbness, Denies radiating pain into limb and Denies tingling Neuro Denies abnormal gait, Denies dizziness, Denies frequent falls, Denies numbness, Denies tingling and Denies weakness Endo Denies fatigue and Denies palpitations Physical Exam Vital Signs: Last Vital Signs Pulse 84 10/12/24 15:20 BP 110/70 10/12/24 15:20 BMI result Body Mass Index 25.6 Const General: comfortable and no acute distress Orientation/consciousness: patient oriented x3 HEENT Other: Unremarkable Head: Yes normal to inspection Neck Neck: Yes normal visual inspection Chest Chest palpation & inspection: normal inspection of the chest Resp Auscultation: clear to auscultation bilaterally Cardio Palpation: normal PMI Heart sounds: S1 normal heart sound present, S2 normal heart sound present, no gallops, no murmurs and no rubs GI Palpation (GI): Soft to palpation Back/Spine/Pelvis Other: unremarkable Skin General skin exam: no rashes or lesions noted Neuro General: patient oriented x3 Extrem General: Yes normal to inspection Psych Mental Status: mental status grossly normal Assessment & Plan Assessment & Plan (1) Regional wall motion abnormality of heart: Code(s): R93.1 - Abnormal findings on diagnostic imaging of heart and coronary circulation Category: Medical (2) Family history of coronary artery disease: Code(s): Z82.49 - Family history of ischemic heart disease and other diseases of the circulatory system Category: Medical (3) Family history of cardiomyopathy: Code(s): Z82.49 - Family history of ischemic heart disease and other diseases of the circulatory system Category: Medical Plan Baseline EKG unremarkable. In the echocardiogram, there is concern for basal inferior/inferoseptal/inferolateral wall motion abnormality, but suspect it is because of echo dropout and hence artifactual. Images were reviewed. Doubt any true findings. In the coronary CTA, no significant findings. Overall, based on the up, reassurance only. No further workup is required. In the future, call with any concerns. Discussion Notes I discussed with the patient that the CT scan did not reveal any coronary artery blockages, which suggests that the chest pain is not cardiac in origin. I advised that the pain might be musculoskeletal and recommended monitoring the symptoms. The patient was instructed to call the clinic if there are any changes or if further assistance is needed. Patient was informed and verbally consented to the use of an ambient scribe for clinic note documentation during this visit. Coding Level of Care Code Est Pt Level 3 (20589) Diagnoses Regional wall motion abnormality of heart R93.1 Family history of coronary artery disease Z82.49 Family history of cardiomyopathy Z82.49
[2024-10-12 15:20] VITALS: BP 110/70; PULSE 84; BMI 25.6
== END 2024-10-12 15:31 | disposition home or self-care (01) ==
LOC: HO.HCS 15:15
PROVIDERS: PCP Student in an Organized Health Care Education/Training Program; Visit Provider Internal Medicine
DX: R93.1 Abnormal findings on diagnostic imaging of heart and coronary circulation (principal); Z82.49 Family history of ischemic heart disease and other diseases of the circulatory system
CPT/HCPCS: 99213

== ENCOUNTER → 2024-10-12 15:15 | Outpatient (BNVA) | payer MEDICAID, SELFPAY | PROVIDERS: PCP Student in an Organized Health Care Education/Training Program; Visit Provider Internal Medicine | DX: R93.1 Abnormal findings on diagnostic imaging of heart and coronary circulation (principal); Z82.49 Family history of ischemic heart disease and other diseases of the circulatory system | CPT/HCPCS: 99212 ==

== ENCOUNTER 2024-11-22 08:49 | Outpatient (REF) | payer MEDICAID, SELFPAY ==
--- OUTSIDE RECORDS SUMMARY | 2024-11-22 09:09 | XMS_ITS | Encounter Summary ---
Author Organization [employer] [facility] Address [address] [place] [address] [address] [place] [address] Care Team Providers Care Investigations Manager Name Role Phone Doretha Hayes Primary Care Provider Maryanne Pagan MD Primary Care Pro vider Encounter Details Date Type Department Care Team (Latest Contact Info) Description 09/14/2018 Abstract [facility] CONVERSIONS Dental, Provider, DDS Social History [...] as of this encounter Plan of Treatment Not on file documented as of this encounter Visit Diagnoses Not on filedocumented in this encounter Care Teams Investigations Manager Relationship Specialty Start Date End Date Doretha Hayes FNP PCP - General Family Medicine 09/23/21 10/15/22 Maryanne Seals MD [address] [place] [phone] PCP - General Internal Medicine 10/16/22 documented as of this encounter
[2024-11-25 11:54] LABS: TS Negative Control Passed; TS Panel A 2; TS Panel B 4; TS Positive Control Passed; TSpotTB Negative (Negative)
== END 2024-11-22 08:50 | disposition home or self-care (01) ==
LOC: HO.HHCL 08:49
PROVIDERS: PCP Student in an Organized Health Care Education/Training Program; Visit Provider Student in an Organized Health Care Education/Training Program
DX: Z11.1 Encounter for screening for respiratory tuberculosis (principal)
CPT/HCPCS: 36415; 86481

== ENCOUNTER 2024-12-21 12:30 | Outpatient (REF) | payer MEDICAID, SELFPAY ==
--- NOTE | ~2024-12-21 | US_ITS ---
EXAMINATION: US KIDNEY BILATERAL HISTORY: RUP CYST DEMONSTRATING WALL CALCIFICATION, F/U TECHNIQUE: Real-time grayscale ultrasound imaging of the kidneys was performed and images were reviewed. COMPARISON: Comparison is made with the prior examination dated 07/10/2024. FINDINGS: Right kidney: The right kidney measures 10.1 x 4.0 x 4.5 cm. Renal parenchymal echotexture and thickness are normal. Again seen is a 1.1 x 0.6 x 0.9 cm cyst demonstrating wall calcification. There is no hydronephrosis or renal calculi. Left Kidney: The left kidney measures 9.9 x 4.9 x 5.2 cm. Renal parenchymal echotexture and thickness are normal. There are no masses. There is no hydronephrosis or renal calculi. US/US renal BI IMPRESSION: Stable 1.1 x 0.6 x 0.9 cm cyst at the upper pole of the right kidney demonstrating wall calcification. Follow-up is recommended with renal ultrasound in 12 months Electronically signed by: Anthony Genao MD 12/21/2024 01:00 PM EDT
--- OUTSIDE RECORDS SUMMARY | 2024-12-21 16:45 | XMS_ITS | Clinical Summary ---
Author Organization [employer] Address [address] [facility] 7[address] [place] [address] Care Team Providers Care Certified Nurse Name Role Phone Maryanne Seals MD Primary Care Pro vider Allergies No known active allergies Medications esomeprazole (NexIUM) [address] capsule Take 1 capsule (20 mg) by mouth before breakfast. Do not open capsule. 90 capsule 10/23/2024 Active atorvastatin (Lipitor) 10 MG tablet Take 1 tablet (10 mg) by mouth Once per day. 90 tablet 10/23/2024 6 Active cetirizine (ZyrTEC) 10 MG tablet Take 1 tablet (10 mg) by mouth Once per day. Prn. 30 tablet 2 10/23/2024 6 Active montelukast (Singulair) 10 MG tablet Take 1 tablet (10 mg) by mouth Once per day. 90 tablet 10/23/2024 6 Active Active Problems Problem Noted Date Diagnosed Date Dental calculus 12/05/2024 Stage 4 grade B localized pe riodontitis per AAP/EFP 2017 classification 12/05/2024 Chronic periodontitis 12/05/2024 Teeth missing 12/05/2024 Gingival bleeding 12/05/2024 GERD (gastroesophageal reflux disease) Renal cyst 07/21/2024 Prediabetes 07/31/2023 Hyperlipidemia 06/08/2023 Abnormal echocardiogram 06/08/2023 [...] HPV cotest q 5 years. Mammogram: Per [facility] screening start age 45, earlier if [...] Encounters Date Type Department Care Team Description 12/21/2024 Orders Only [facility] MEDICINE [address] [place] [phone] Maryanne Seals MD 12/05/2024 9:00 AM EDT Office Visit [facility] ADULT DENTAL [address] [place] [phone] Briana Donahue Dental calculus (Primary Dx); Stage 4 grade B localized periodontitis per AAP/EFP 2017 classification; Chronic periodontitis; Teeth missing; Gingival bleeding 11/22/2024 Orders Only [facility] [address] [place] [phone] Maryanne Seals MD 11/21/[address] [address] Maryanne Seals MD [facility] (I informed the patient that [facility] were ordered, because a Statement of Good Health from [facility], needs to be completed. She stated that she will come to the [facility] lab on 11/22/24, to have them done.) 11/21/2024 Orders Only [facility] [address] [place] [phone] Richelle Mckeon, RN Screening for tuberculosis 11/03/[address] [address] Maryanne Seals MD sep recall 10/23/2024 1:15 PM EDT Office Visit [facility] MED[facility]INE [address] [place] [phone] Maryanne Seals MD Health care maintenance (Primary Dx); Renal cyst; History of uterine fibroid; Prediabetes; Allergic rhinitis, unspecified seasonality, unspecified trigger; Hyperlipidemia, unspecified hyperlipidemia type; Abnormal echocardiogram; Annual physical exam; Gastroesophageal reflux disease, unspecified whether esophagitis present 10/23/2024 Travel 10/20/[address] [address] Maryanne Seals MD chart prep 10/16/2024 Patient Outreach [facility] [address] [place], [place] [phone] Maryanne Seals MD Pre-visit Planning (SDOH was already completed ) from Last 3 Months Immunizations Immunization Administration Dates Next Due Hep B, adult 03/10/2018,05/04/2017,03/23/2017 Influenza injectable quadriv alent IIV4 with preservative 03/10/2018,03/11/2017,01/17/2016 Influenza injectable quadriv alent preservative free 06/08/2023,04/30/2021,01/31/2020 Influenza, seasonal, injecta ble, preservative free 01/31/2024 Pfizer Covid-19 Vaccine 12+ 01/31/2024, RSV Bivalent 11/01/2024 Tdap 01/17/2016 Zoster, Recombinant 11/01/2024,02/05/2021 Family History Medical History Relation Name Comments [...] Answer Date Recorded Patient Health Questionnaire-9 Score 0 07/21/2024 Patient Health Questionnaire-9 Score 0 07/21/2024 Last PHQ-9: Questionnaire Data Not on file 0 07/21/2024 Housing Stability Answer Date Recorded What is your housing situation today? I have faiza marie 07/21/[address] you li ve. Do you have problems with any of the following? None of the above 07/21/2024 Food Insecurity Answer Date Recorded Within the past 12 months, y ou worried that your food would run out before you got money to buy more: Never True 07/21/2024 Within the past 12 months,th e food you bought just didn't last and you didn't have enough money to get more: Never True 02/2025 Transportation Answer Date Recorded In the past 12 months, has l ack of transportation kept you from medical appts, meetings, work or from getting things needed for daily living? No 07/21/2024 Utilities Answer Date Recorded In the past 12 months, has t he electric, gas, oil or water company threatened to shut off services in your home? No 07/21/2024 Depression Answer Date Recorded Patient Health Questionnaire-2 Score 0 10/23/2024 Internet Access Answer Date Recorded Internet Access Q1 Yes 07/21/2024 Internet Access Q2 Not on file 07/21/2024 Comments No Sex and Gender Information Value Date Recorded Sex Assigned at Female 02/09/2022 10:28 AM EDT Legal Sex Female 10:28 AM EDT Gender Identity Female 02/09/2022 10:28 AM EDT Sexual Orientation Straight 02/09/2022 10 :28 AM EDT Last Filed Vital Signs Vital Sign Reading Time Taken Comments Blood Pressure 122/76 12/05/2024 8:57 AM EDT Pulse 66 12/05/2024 8:57 AM EDT Temperature 36.3 C (97.3 F) 10/23/2024 1:35 PM EDT Respiratory Rate 20 10/23/2024 1:35 PM EDT Oxygen Saturation 99% 10/23/2024 1:35 PM EDT Inhaled Oxygen Concentration - - Weight 59.2 kg (130 lb 9.6 oz) 10/23/2024 1:35 P M EDT Height 152.4 cm (5') 10/23/2024 1:35 PM EDT Body Mass Index 25.51 10/23/2024 1:35 PM EDT Plan of Treatment Upcoming Encounters Date Type Department Care Team (Late st Contact Info) Description 02/02/2025 10:00 AM EDT Office Visit [facility] MED[facility]INE [address] [place] [phone] Maryanne Seals MD [address] [place] [address] 06/12/2025 10:00 AM EST Office Visit [facility] ADULT DENTAL [address] [place] [address] Briana Donahue [address] [place] [address] Health Maintenance Due Date Last Done Comments CT Colonography 1965 FIT DNA/Cologuard 1965 FIT 1965 FOBT 1965 Sigmoidoscopy 1965 Pneumococcal Vaccine: 50+ Years (1 of 1 - PCV) 12/26/2013 Dental X-Ray: Bitewings 10/07/2022 10/06/2021, 06/22 Dental X-Ray: Full Mouth 10/07/2024 10/06/2021, 06/10 Dental Oral Exam 11/30/2024 06/01/2024, 10/2021, 06/22/2018 Influenza Vaccine (#1) 2024 , 06/08/2023, 04/30/2021, Additional history exists Dental Prophylaxis 06/08/2025 12/05/2024, 0 10/06/2021, 03/20/2019, Additional history exists Diabetes: Hemoglobin A1C 07/14/2025 04/2 025, 07/23/2023, 08/06/2022, Additional history exists Alcohol/Substance Use Screening 07/21/2025 07/21/2024 Disability Screening 07/21/2025 07/21/2024 SDOH Screening 07/21/2025 07/21/2024 Depression Screening 10/23/2025 10/23/2024, 07/22/19 Tobacco Screening 12/05/2025 12/05/2024 DTaP/Tdap/Td Vaccines (2 - Td or Tdap) 01/16/2026 01/17/2016 Mammogram 02/06/2026 02/07/2024, 07/20/2017 Cervical Cancer Screening 10/08/2026 HPV/Cotest 10/08/2026 10/08/2021, 09/11, 02/26/2020, Additional history exists Pap Smear 10/08/2026 10/08/2021, 02/26/2020 Colonoscopy 12/12/2031 12/11/2021 Colorectal Cancer Screening 12/12/2031 Hepatitis B Vaccines Completed 03/10/2018, 05/04/2017, 03/23/2017 HIV Screening Completed 07/23/2023 Hepatitis C Screening Completed 07/23/2023 COVID-19 Vaccine Completed 01/31/2024, , 04/30/2021, Additional history exists RSV Patients and Patients Aged 60 years or older Completed 11/01/2024 Zoster Vaccines Completed 11/01/2024, 02/05/2021 HIB Vaccines Aged Out No longer eligi [...] patient's age to complete this topic Meningococcal B Vaccine Aged Out No l onger eligible based on patient's age to complete [...] Procedure Name Priority Date/Time Associated Diagnosis Comments US RENAL COMPLETE Routine 12/21/2024 12: 43 PM EDT ORAL HYGIENE INSTRUCTIONS Routine 12/05/2024 9:00 AM EDT Dental calculus Stage 4 grade B localized periodontitis per AAP/EFP 2017 classification Chronic periodontitis Teeth missing Gingival bleeding CASE PRESENTATION, DETAILED AND EXTENSIVE TREATMENT PLANNING Routine 12/05/2024 9:00 AM EDT Dental calculus Stage 4 grade B localized periodontitis per AAP/EFP 2017 classification Chronic periodontitis Teeth missing Gingival bleeding PROPHYLAXIS - ADULT Routine 12/05/2024 9 :00 AM EDT Dental calculus Stage 4 grade B localized periodontitis per AAP/EFP 2017 classification Chronic periodontitis Gingival bleeding T-SPOT(R).TB Routine 11/22/2024 8:55 AM EDT HEMOGLOBIN A1C Routine 07/14/2024 8:41 AM EDT Prediabetes PERIODIC ORAL EVALUATION - ESTABLISHED PATIENT Routine 06/01/2024 1:30 PM EST BI MAMMOGRAM SCREENING TOMOSYNTHESIS BILATERAL Routine 02/07/2024 3:50 PM EDT HEPATITIS C AB W/REFL TO HCV RNA, QN, PCR Routine 07/23/2023 10:21 AM EDT Annual physical exam HIV 1/2 ANTIGEN/ANTIBODY, FOURTH GENERATION W/RFL Routine 07/23/2023 10:21 AM EDT Annual physical exam HM COLONOSCOPY Routine 12/11/2021 ZZZ HISTORICAL HPV E6/E7 RFLX NIKOS 16 18/45 Routine 10/08/2021 10:19 AM EDT HM PAP/HPV Routine 10/08/2021 INTRAORAL - COMPLETE SERIES OF RADIOGRAPHIC IMAGES Routine 10/06/2021 12:00 AM EDT from Last 3 Months or Most Recently Relevant to Health Maintenance Results * US Renal Complete (12/21/2024 12:43 PM EDT) Anatomical Region Laterality Modality Kidney Ultrasound 12/21/2024 12:4 3 PM EDT Narrative 12/21/2024 1:03 PM EDT [address] [address] Ultrasound Report Signed Patient: Ana Ribeiro MR#: [id number] : 1965 Acct:[id number] Age/Sex: 58 / F ADM Date: 12/21/24 Loc: .US Attending Dr: Maryanne Fam MD Ordering Physician: Maryanne Seals MD Date of Service: 12/21/24 Procedure(s): US renal BI Accession Number(s): [id number] cc: Maryanne Seals MD Reason for Exam: RUP CYST,DEMONSTRATING WALL CALCIFICATION,F/U EXAMINATION: US KIDNEY BILATERAL HISTORY: RUP CYST DEMONSTRATING WALL CALCIFICATION, F/U TECHNIQUE: Real-time grayscale ultrasound imaging of the kidneys was performed and images were reviewed. COMPARISON: Comparison is made with the prior examination dated 07/10/2024. FINDINGS: Right kidney: The right kidney measures 10.1 x 4.0 x 4.5 cm. Renal parenchymal echotexture and thickness are normal. Again seen is a 1.1 x 0.6 x 0.9 cm cyst demonstrating wall calcification. There is no hydronephrosis or renal calculi. Left Kidney: The left kidney measures 9.9 x 4.9 x 5.2 cm. Renal parenchymal echotexture and thickness are normal. There are no masses. There is no hydronephrosis or renal calculi. US/US renal BI IMPRESSION: Stable 1.1 x 0.6 x 0.9 cm cyst at the upper pole of the right kidney demonstrating wall calcification. Follow-up is recommended with renal ultrasound in 12 months Electronically signed by: Anthony Genao MD 12/21/2024 01:00 PM EDT Dictated By: Anthony Genao MD Signed By: <Electronically signed by Anthony Genao MD in OV> 12/21/24 1300 DD/ 1243 TD/TT: 12/21/24 1248 Bag Inspector: Procedure Note Donotuseinterpreter, Image - 12/21/[address] [place] [address] Ultrasound Report Signed Patient: Salma Ribeiro#: [id number] : 1965Acct:[id number] Age/Sex: 58 / FADM Date: 12/21/24 Loc: .US Attending Dr: Maryanne Fam MD Ordering Physician: Maryanne eSals MD Date of Service: 12/21/24 Procedure(s): US renal BI Accession Number(s): [id number] cc: Maryanne Seals MD Reason for Exam: RUP CYST,DEMONSTRATING WALL CALCIFICATION,F/U EXAMINATION: US KIDNEY BILATERAL HISTORY: RUP CYST DEMONSTRATING WALL CALCIFICATION, F/U TECHNIQUE: Real-time grayscale ultrasound imaging of the kidneys was performed and images were reviewed. COMPARISON: Comparison is made with the prior examination dated 07/10/2024. FINDINGS: Right kidney: The right kidney measures 10.1 x 4.0 x 4.5 cm. Renal parenchymal echotexture and thickness are normal. Again seen is a 1.1 x 0.6 x 0.9 cm cyst demonstrating wall calcification. There is no hydronephrosis or renal calculi. Left Kidney: The left kidney measures 9.9 x 4.9 x 5.2 cm. Renal parenchymal echotexture and thickness are normal. There are no masses. There is no hydronephrosis or renal calculi. US/US renal BI IMPRESSION: Stable 1.1 x 0.6 x 0.9 cm cyst at the upper pole of the right kidney demonstrating wall calcification. Follow-up is recommended with renal ultrasound in 12 months Electronically signed by: Anthony Genao MD 12/21/2024 01:00 PM EDT Dictated By: Anthony Genoa MD Signed By: <Electronically signed by Anthony Genao MD in OV> 12/21/24 1300 DD/ 1243 TD/TT: 12/21/24 1248 Bag Inspector: us Maryanne Fam MD IMG US PROCEDURES Final Result * T-SPOT??.TB (11/22/2024 8:55 AM EDT) T Spot TB Negative Negative [facility] Comment:A negative test resu lt does not exclude the possibilityof exposure to or infection with Mycobacteriumtuberculosis (M. tuberculosis). Patients with recentexposure to TB infected individuals exhibiting anegative T-SPOT.TB result should be considered forretesting within 6 weeks or if other relevant clinicalsymptoms indicate. Results from T-SPOT.TB testing mustbe used in conjunction with each individual'sepidemiological history, current medical status,and results of other diagnostic evaluations.The T-SPOT.TB test is qualitative and results arereported as positive, borderline, or negative, giventhat the test controls perform as expected. In linewith the Centers for Disease Control and Prevention's2010 recommendation to report quantitative measurementsalongside the qualitative result, the laboratoryprovides spot counts for informational purposes only.The T-SPOT.TB test should not be interpreted as aquantitative test. TS PANEL A 2 [facility] TS PANEL B 4 [facility] Negative Control Passed [facility] Positive Control Passed [facility] Comment:For additional infor mation, please refer tohttp://education.WebSafety/faq/FTL317(This link is being provided for informational/educational purposes only.)THIS TEST WAS PERFORMED AT:[id number] [place] [address]ONZEQKZALBERTO ESPINOZA MD,PHD 11/22/2024 8:55 AM EDT 11/22/2024 11:19 AM EDT us Maryanne Fam MD LAB BLOOD ORDERAB LES Final Result [facility] [address], [place] [phone] * Hemoglobin A1c (07/14/2024 8:41 AM EDT) Hemoglobin A1c 5.6 <6.0 % [facility] Comment:Hemoglobin A1C Refer ence Range Adults: 4.8 - 6.0 % Non diabetic: < 6.0 % Goal: < 7.0 %Additional Action Suggested: > 8.0 %Note: Hemoglobin A1c results are invalid for patients with abnormal amounts of HbF. Blood transfusions may impact the HbA1c concentration in the patient sample. Estimated Average Glucose 114 mg/dL [facility] Comment:eAG = Estimated ave rage glucose which is %A1C expressed asaverage glucose, using the formula of the I1P-CxomwsnRrvljoq Glucose study (ADAG), Diabetes Care, Vol.31,#8,Nov. 2007 Blood Venous blood specimen / Unknown 07/14/2024 8:41 AM EDT 07/14/2024 11:21 AM EDT us Maryanne Fam MD LAB BLOOD ORDERAB LES Final Result [facility] [address] [place] [address] [phone] * BI Mammogram Screening Tomosynthesis Bilateral (02/07/2024 3:50 PM EDT) Anatomical Region Laterality Modality Breast Bilateral Mammography 02/07/2024 3:50 PM EDT Narrative 02/16/2024 10:31 AM EST [facility] [address] [place] [address] Mammography Report Signed Patient: Ana Ribeiro MR#: [id number] : 1965 Acct:[id number] Age/Sex: 58 / F ADM Date: 02/07/24 Loc: MAMMO Attending Dr: Maryanne Fam MD Ordering Physician: Arthur Roldan MD Results: 1Negativ e Date of Service: 02/07/24 Follow Up: 1 Year From Orig inal Mammogram Procedure(s): MM tomosynthesis screening BI Accession Number(s): [id number] cc: Maryanne Seals MD; Arthur Roldan MD [...] 02/16/24 1029 DD/ 1550 TD/TT: 02/07/24 1613 Bag Inspector: Procedure Note Donotuseinterpreter, Image - 02/16/2024 [facility] [address] [place] [address] Mammography Report Signed Patient: Salma Ribeiro#: [id number] : 1965Acct:[id number] Age/Sex: 58 / FADM Date: 02/07/24 Loc: HO.MAMMO Attending Dr: Maryanne Fam MD Ordering Physician: Arthur Roldan MDResults: 1Negativ e Date of Service: 02/07/24Follow Up: 1 Year From Orig ina Mammogram Procedure(s): MM tomosynthesis screening BI Accession Number(s): [id number] cc: Maryanne Seals MD; Arthur Roldan MD [...] 02/16/24 1029 DD/ 1550 TD/TT: 02/07/24 1613 Bag Inspector: [facility] External Provider IMG BI PROCEDURES Edited Result - Final * Hepatitis C Antibody with Reflex to HCV, RNA, Quantitative, Real-Time PCR (07/23/2023 10:21 AM EDT) Hepatitis C Antibody Nonreactive Nonreactive [facility] Comment:Antibodies to HCV no t detected; does not exclude early acuteHCV infection. Blood Venous blood specimen / Unknown 07/23/2023 10:21 AM EDT 07/23/2023 11:25 AM EDT Maryanne Fam MD LAB BLOOD ORDERAB LES Final Result [facility] [address] [place] [phone] * HIV-1/2 Antigen and Antibodies, Fourth [...] below the limit ofdetection of this assay.The i-NeumaticosniStudyBlue HIV Ag/Ab Combo assay result andsupplemental assay results should be interpreted inconjunction with the patient's clinical presentation,history and other laboratory results. If the results areinconsistent with clinical evidence, additional testing issuggested to confirm the result. Blood Venous blood specimen / Unknown 07/23/2023 10:21 AM EDT 07/23/2023 11:25 AM EDT Maryanne Fam MD LAB BLOOD ORDERAB LES Final Result [facility] [address] [place] [phone] * Hm Colonoscopy (12/11/2021) Colonoscopy Normal Normal [facility] Provider HEALTH MAINTENANCE Final Result * HPV E6/E7 RFLX NIKOS 16 18/45 (10/08/2021 10:19 AM EDT) HPV 16 RNA [facility] HPV 18/45 RNA [facility] HPV E6 E7 ADD [facility] HPV mRNA E6/E7 rflx Not Detected Not Detected [facility] Comment: Methodology: Regulatory Process Manager-Mediated Amplification This assay detects E6/E7 viral messenger RNA (mRNA) from 14 high-risk HPV types (16,18,31,33,35,39,45,51,52,56,58,59,66,68). Cervical sources are required for HPV testing. If a vaginal source from a patient who has had a total hysterectomy with removal of cervix was submitted, please contact the testing laboratory for alternative testing options. For additional information, please refer to http://education.Aframe.JethroData/faq/ZWI398q9 (This link if provided for information/ educational purposes only.) THIS TEST WAS PERFORMED AT: [facility] [address] [place] [address] [address]LO[address],[place] [address] SERENA HARRIS MD 10/08/2021 10:1 9 AM EDT Arthur Roldan MD HISTORICAL/NON ORDERABLE LABS Fi nal Result [facility] [address] * Pap Smear (10/08/2021) Historical Provider HEALTH MAINTENANCE Final Result from Last 3 Months or Most Recently Relevant to Health Maintenance Insurance [facility] C3 DENTAL-[facility] MEDICAID STAND ADULT Care Teams Certified Nurse Relationship Specialty Start Date End Date Maryanne Seals MD [address] [place] [phone] PCP - General Internal Medicine 10/16/22
--- OUTSIDE RECORDS SUMMARY | 2024-12-21 16:45 | XMS_ITS | Encounter Summary ---
Author Organization [employer] Address [address] [place] [address] Care Team Providers Care Game Bird Farmer Name Role Phone Maryanne Seals MD Primary Care Pro vider Reason for Visit * Reason Comments Med Refill Encounter Details Date Type Department Care Team ([facility] st Contact Info) Description 09/03/2024 Refill [facility] [address] [place], [place] [phone] Ashish Washington MD [address] [place] [address] Social History Tobacco Use Types Packs/Day Years [...] Date Recorded Patient Health Questionnaire-2 Score 0 07/21/2024 Internet Access Answer Date Recorded Internet Access [...] Description 02/02/2025 10:00 AM EDT Office Visit [facility] [address] [place] [address] Maryanne Seals MD [address] [place] [address] 06/12/2025 10:00 AM EST Office Visit [facility] DENT[facility] [address] [place] [address] Godfrey, Briana [address] [place] [address] documented as of this encounter Visit Diagnoses Not on filedocumented in this encounter Additional Health Concerns Assessment Noted Time PHQ-9 Depression Total Score: 0 07/22/19 25 9:31 AM EDT documented as of this encounter Care Teams Game Bird Farmer Relationship Specialty Start Date End Date Maryanne Seals MD [address] [place] [address] PCP - General Internal Medicine 10/16/22 documented as of this encounter
--- OUTSIDE RECORDS SUMMARY | 2024-12-21 16:45 | XMS_ITS | Encounter Summary ---
Author Organization [employer] [facility] Address [address] [facility] 7 [place] [address] Care Team Providers Care Foundry Superintendant Name Role Phone Maryanne Seals MD Primary Care Pro vider Encounter Details Date Type Department Care Team ([facility] Contact Info) Description 01/06/2023 Orders Only [facility] [address] [place] [phone] Provider, MD Laura Social History Tobacco Use [...] Encounters Date Type Department Care Team (Late Contact Info) Description 02/02/2025 10:00 AM EDT Office Visit [facility] [address] [place] [phone] Maryanne Seals MD [address] [place] [address] 06/12/2025 10:00 AM EST Office Visit [facility] ADULT DENTAL [address] [place] [phone] Briana Donahue [address] [place] [address] documented as of this encounter Procedures Procedure Name Priority Date/Time Associated Diagnosis Comments HM PAP/HPV Routine 10/08/2021 PAP/HPV Routine 02/26/2020 documented in this encounter Results * Pap Smear (10/08/2021) Historical Provider HEALTH MAINTENANCE Final Result * Pap Smear (02/26/2020) Historical Provider HEALTH MAINTENANCE Final Result documented in this encounter Visit Diagnoses Not on filedocumented in this encounter Care Teams Foundry Superintendant Relationship Specialty Start Date End Date Maryanne Seals MD [address] [place] [phone] PCP - General Internal Medicine 10/16/22 documented as of this encounter
--- OUTSIDE RECORDS SUMMARY | 2024-12-21 16:45 | XMS_ITS | Encounter Summary ---
Author Organization [employer] [facility] Address [address] [facility] 7 [place] [address] Care Team Providers Care Director Chemistry Name Role Phone Doretha Hayes Primary Care Provider Maryanne Pagan MD Primary Care Pro vider Encounter Details Date Type Department Care Team (Latest Contact Info) Description 10/06/2021 Abstract [facility] CONVERSIONS Dental, Provider, DDS Social History [...] Description 02/02/2025 10:00 AM EDT Office Visit [facility] MEDICINE [address] [place] [phone] Maryanne Seals MD [address] [place] [address] 06/12/2025 10:00 AM EST Office Visit [facility] ADULT DENTAL [address] [place] [phone] Lorenzo Donahuearis [address] [place] [address] documented as of this encounter Visit Diagnoses Not on filedocumented in this encounter Care Teams Director Chemistry Relationship Specialty Start Date End Date Doretha Hayes FNP PCP - General Family Medicine 09/23/21 10/15/22 Maryanne Seals MD [address] [place] [phone] PCP - General Internal Medicine 10/16/22 documented as of this encounter
--- OUTSIDE RECORDS SUMMARY | 2024-12-21 16:45 | XMS_ITS | Encounter Summary ---
Author Organization [email or web address] [facility] Address [address] [facility] 7 [place] [address] Care Team Providers Care Opener Verifier Packer Customs Name Role Phone Doretha Hayes Primary Care Provider Maryanne Pagan MD Primary Care Pro vider Encounter Details Date Type Department Care Team (Latest Contact Info) Description 09/14/2018 Abstract [facility] CONVERSIONS Dental, Provider, DDS Social History Tobacco [...] Description 02/02/2025 10:00 AM EDT Office Visit [facility] MEDICINE [address] [place] [phone] Maryanne Seals MD [address] [place] [phone] 06/12/2025 10:00 AM EST Office Visit [facility] ADULT DENTAL [address] [place] [phone] Briana Donahue [address] [place] [address] documented as of this encounter Visit Diagnoses Not on filedocumented in this encounter Care Teams Opener Verifier Packer Customs Relationship Specialty Start Date End Date Doretha Hayes FNP PCP - General Family Medicine 09/23/21 10/15/22 Maryanne Seals MD [address] [place] [phone] PCP - General Internal Medicine 10/16/22 documented as of this encounter
--- OUTSIDE RECORDS SUMMARY | 2024-12-21 16:45 | XMS_ITS | Encounter Summary ---
Author Organization [employer] Address [address] [facility] 7t [place] [address] Care Team Providers Care Car And Yard Supervisor Name Role Phone Maryanne Seals MD Primary Care Pro vider Encounter Details Date Type Department Care Team (Late st Contact Info) Description 12/21/2024 Orders Only [facility] MEDICINE [address] [place] [address] Maryanne Seals MD [address] [place] [address] Social History Tobacco Use Types Packs/Day Years [...] Description 02/02/2025 10:00 AM EDT Office Visit [facility] MEDICINE [address] [place] [address] [phone] Maryanne Seals MD [address] [place] [phone] 06/12/2025 10:00 AM EST Office Visit [facility] ADULT DENTAL [address] [place] [address] Briana Donahue [address] [place] [address] documented as of this encounter Procedures Procedure Name Priority Date/Time Associated Diagnosis Comments US RENAL COMPLETE Routine 12/21/2024 12: 43 PM EDT documented in this encounter Results * US Renal Complete (12/21/2024 12:43 PM EDT) Anatomical Region Laterality Modality Kidney Ultrasound 12/21/2024 12:4 3 PM EDT Narrative 12/21/2024 1:03 PM EDT [address] [address] Ultrasound Report Signed Patient: Ana Ribeiro MR#: [id number] : 1965 Acct:[id number] Age/Sex: 58 / F ADM Date: 12/21/24 Loc: HO.US Attending Dr: Maryanne Fam MD Ordering Physician: Maryanne Seals MD Date of Service: 12/21/24 Procedure(s): US renal BI Accession Number(s): [id number] cc: Maryanne Seals MD Reason for Exam: [...] Anthony Genao MD 12/21/2024 01:00 PM EDT RP Dictated By: Anthony Genao MD Signed By: <Electronically signed by Anthony Genao MD in OV> 12/21/24 1300 DD/ 1243 TD/TT: 12/21/24 1248 Medicaid Billing Specialist: Procedure Note Donotuseinterpreter, Image - 12/21/[address] [address] Ultrasound Report Signed Patient: Salma Ribeiro#: [id number] : 1965Acct:[id number] Age/Sex: 58 / FADM Date: 12/21/24 Loc: HO.US Attending Dr: Maryanne Fam MD Ordering Physician: Maryanne Seals MD Date of Service: 12/21/24 Procedure(s): US renal BI Accession Number(s): [id number] cc: Maryanne Seals MD Reason for Exam: [...] Anthony Genao MD 12/21/2024 01:00 PM EDT RP Dictated By: Anthony Genao MD Signed By: <Electronically signed by Anthony Genao MD in OV> 12/21/24 1300 DD/ 1243 TD/TT: 12/21/24 1248 Medicaid Billing Specialist: us Maryanne Fam MD IMG US PROCEDURES Final Result documented in this encounter Visit Diagnoses Not on filedocumented in this encounter Additional Health Concerns Assessment Noted Time PHQ-9 Depression Total Score: 0 07/22/19 9:31 AM EDT documented as of this encounter Care Teams Car And Yard Supervisor Relationship Specialty Start Date End Date Maryanne Seals MD [address] [place] [phone] PCP - General Internal Medicine 10/16/22 documented as of this encounter
== END 2024-12-21 12:31 | disposition home or self-care (01) ==
LOC: HO.US 12:30
PROVIDERS: PCP Student in an Organized Health Care Education/Training Program; Visit Provider Student in an Organized Health Care Education/Training Program
DX: N28.1 Cyst of kidney, acquired (principal)
CPT/HCPCS: 76775

== ENCOUNTER → 2024-12-21 12:33 | Outpatient (BNV) | payer MEDICAID, SELFPAY | PROVIDERS: PCP Student in an Organized Health Care Education/Training Program; Visit Provider Radiology Diagnostic Radiology | DX: N28.1 Cyst of kidney, acquired (principal) | CPT/HCPCS: 76775 ==

== ENCOUNTER 2025-02-03 08:13 | Outpatient (REF) | payer MEDICAID, SELFPAY ==
--- OUTSIDE RECORDS SUMMARY | 2025-02-03 08:18 | XMS_ITS | Encounter Summary ---
Author Organization [employer] [facility] Address [address] [facility] 7 [place] [address] Care Team Providers Care Core Dipper Name Role Phone Doretha Hayes Primary Care Provider Maryanne Pagan MD Primary Care Pro vider Encounter Details Date Type Department Care Team (Latest Contact Info) Description 09/14/2018 Abstract [facility] CONVERSIONS Dental, Provider, DDS Social History [...] Care Team (Late st Contact Info) Description 02/08/2025 1:15 PM EDT Office Visit [facility] MEDICINE [address] [place] [phone] Maryanne Seals MD [address] [place] [phone] 06/12/2025 10:00 AM EST Office Visit [facility] ADULT DENTAL [address] [place] [phone] Briana Donahue [address] [place] [address] documented as of this encounter Visit Diagnoses Not on filedocumented in this encounter Care Teams Core Dipper Relationship Specialty Start Date End Date Doretha Hayes FNP PCP - General Family Medicine 09/23/21 10/15/22 Maryanne Seals MD [address] [place] [phone] PCP - General Internal Medicine 10/16/22 documented as of this encounter
--- OUTSIDE RECORDS SUMMARY | 2025-02-03 08:18 | XMS_ITS | Encounter Summary ---
Author Organization [id number] [facility] Address [address] [facility] 7 [place] [address] Care Team Providers Care Oil And Gas Specialist Name Role Phone Doretha Hayes Primary Care Provider Maryanne Pagan MD Primary Care Pro vider Encounter Details Date Type Department Care Team (Latest Contact Info) Description 10/06/2021 Abstract [facility] CONVERSIONS Dental, Provider, DDS Social History [...] Description 02/08/2025 1:15 PM EDT Office Visit [facility] MEDICINE [address] [place] [phone] Maryanne Seals MD [address] [place] [phone] 06/12/2025 10:00 AM EST Office Visit [facility] ADULT DENTAL [address] [place] [address] [phone] Lorenzo Donahuearis [address] [place] [address] documented as of this encounter Visit Diagnoses Not on filedocumented in this encounter Care Teams Oil And Gas Specialist Relationship Specialty Start Date End Date Doretha Hayes FNP PCP - General Family Medicine 09/23/21 10/15/22 Maryanne Seals MD [address] [place] [phone] PCP - General Internal Medicine 10/16/22 documented as of this encounter
--- OUTSIDE RECORDS SUMMARY | 2025-02-03 08:19 | XMS_ITS | Encounter Summary ---
Author Organization [employer] Address [address] [facility] 7t [place] [address] Care Team Providers Care Phlebotomist Name Role Phone Maryanne Seals MD Primary Care Pro vider Encounter Details Date Type Department Care Team (Latest Contact Info) Description 02/02/2025 Travel Social History Tobacco Use Types Packs/Day Years [...] Description 02/08/2025 1:15 PM EDT Office Visit [facility] MEDICINE [address] [place] [address] Maryanne Seals MD [address] [place] [address] 06/12/2025 10:00 AM EST Office Visit [facility] ADULT DENTAL [address] [place] [address] Briana Donahue [address] [place] [address] documented as of this encounter Visit Diagnoses Not on filedocumented in this encounter Additional Health Concerns Assessment Noted Time PHQ-9 Depression Total Score: 0 07/22/19 25 9:31 AM EDT documented as of this encounter Care Teams Phlebotomist Relationship Specialty Start Date End Date Maryanne Seals MD [address] [place] [phone] PCP - General Internal Medicine 10/16/22 documented as of this encounter
--- OUTSIDE RECORDS SUMMARY | 2025-02-03 08:19 | XMS_ITS | Encounter Summary ---
Author Organization [employer] Address [address] [facility] 7t [place] [address] Care Team Providers Care Au Pair Name Role Phone Maryanne Seals MD Primary Care Pro vider Reason for Visit * Reason Onset Date Comments chart prep 02/01/2025 Encounter Details Date Type Department Care Team ([facility] st Contact Info) Description 02/01/2025 Telephone [facility] MEDICINE [address] [place] [address] Maryanne Seals MD [address] [place] [address] chart prep Social History Tobacco Use Types Packs/Day Years [...] encounter Miscellaneous Notes * Telephone Encounter - Khushbu Li [place] - 02/01/2025 3:40 PM EDT Chart Prep Labs: not applicable Images: done Referrals: complete Vaccines due: Flu Screenings: not applicable Overdue care gaps: Not applicable documented in this encounter Plan of Treatment Upcoming Encounters Date Type Department Care Team (Late st Contact Info) Description 02/08/2025 1:15 PM EDT Office Visit [facility] MEDICINE [address] [place] [address] Maryanne Seals MD [address] [place] [address] 06/12/2025 10:00 AM EST Office Visit [facility] ADULT DENTAL [address] [place] [address] Briana Donahue [address] [place] [address] documented as of this encounter Visit Diagnoses Not on filedocumented in this encounter Additional Health Concerns Assessment Noted Time PHQ-9 Depression Total Score: 0 07/22/19 25 9:31 AM EDT documented as of this encounter Care Teams Au Pair Relationship Specialty Start Date End Date Maryanne Seals MD [address] [place] [address] [place] [address] PCP - General Internal Medicine 10/16/22 documented as of this encounter
--- OUTSIDE RECORDS SUMMARY | 2025-02-03 08:20 | XMS_ITS | Encounter Summary ---
Author Organization [employer] Address [address] [facility] [address] 7t [place] [address] Care Team Providers Care Epic Analyst Name Role Phone Maryanne Seals MD Primary Care Pro vider Reason for Visit * Reason Comments Med Refill Encounter Details Date Type Department Care Team ([facility] st Contact Info) Description 09/03/2024 Refill [facility] [address] [place], [place] [phone] Ashish [place] MD [address] [place] [address] Social History Tobacco Use Types Packs/Day Years [...] Description 02/08/2025 1:15 PM EDT Office Visit [facility] MEDICINE [address] [place] [address] Maryanne Seals MD [address] [place] [address] 06/12/2025 10:00 AM EST Office Visit [facility] ADULT DENTAL [address] [place] [address] Godfrey, Briana [address] [place] [address] documented as of this encounter Visit Diagnoses Not on filedocumented in this encounter Additional Health Concerns Assessment Noted Time PHQ-9 Depression Total Score: 0 07/22/19 25 9:31 AM EDT documented as of this encounter Care Teams Epic Analyst Relationship Specialty Start Date End Date Maryanne Seals MD [address] [place] [address] PCP - General Internal Medicine 10/16/22 documented as of this encounter
--- OUTSIDE RECORDS SUMMARY | 2025-02-03 08:20 | XMS_ITS | Encounter Summary ---
Author Organization [employer] [facility] Address [address] [facility] 7 [place] [address] Care Team Providers Care Major Gifts Manager Name Role Phone Maryanne Seals MD Primary Care Pro vider Encounter Details Date Type Department Care Team ([facility] Contact Info) Description 01/06/2023 Orders Only [facility] MEDICINE [address] [place] [phone] Provider, MD Laura Social History Tobacco Use [...] Department Care Team (Late Contact Info) Description 02/08/2025 1:15 PM EDT Office Visit [facility] MEDICINE [address] [place] [address] Maryanne Seals MD [address] [place] [address] 06/12/2025 10:00 AM EST Office Visit [facility] ADULT DENTAL [address] [place] [address] Briana Donahue [address] [place] [address] documented as of this encounter Procedures Procedure Name Priority Date/Time Associated Diagnosis Comments HM PAP/HPV Routine 10/08/2021 PAP/HPV Routine 02/26/2020 documented in this encounter Results * Pap Smear (10/08/2021) Historical Provider HEALTH MAINTENANCE Final Result * Pap Smear (02/26/2020) Historical Provider HEALTH MAINTENANCE Final Result documented in this encounter Visit Diagnoses Not on filedocumented in this encounter Care Teams Major Gifts Manager Relationship Specialty Start Date End Date Maryanne Seals MD [address] [place] [phone] PCP - General Internal Medicine 10/16/22 documented as of this encounter
--- OUTSIDE RECORDS SUMMARY | 2025-02-03 08:21 | XMS_ITS | Clinical Summary ---
Author Organization [employer] Address [address] [facility] 7[address] [place] [address] Care Team Providers Care Short Goods Drier Name Role Phone Maryanne Seals MD Primary Care Pro vider Allergies No known active allergies Medications esomeprazole (NexIUM) [address] capsule Take 1 capsule (20 mg) by mouth before breakfast. Do not open capsule. 90 capsule 5 Active atorvastatin (Lipitor) 10 MG tablet Take 1 tablet (10 mg) by mouth Once per day. 90 tablet 5 10/24/19 26 Active montelukast (Singulair) 10 MG tablet Take 1 tablet (10 mg) by mouth Once per day. 90 tablet 5 10/24/19 26 Active cetirizine (ZyrTEC) 10 MG tablet TAKE 1 TABLET BY MOUTH EVERY EVENING 90 tablet 1 5 Active cetirizine (ZyrTEC) 10 MG tablet Take 1 tablet (10 mg) by mouth Once per day. Prn. 30 tablet 2 5 01/16/20 25 Discontinued Active Problems Problem Noted Date Diagnosed Date [...] Encounters Date Type Department Care Team Description 02/02/2025 Travel 02/01/2025 Telephone [facility] [address] [place] [phone] Maryanne Seals MD chart prep 01/14/2025 Refill [facility] [place] [address] Maryanne Seals MD 12/21/2024 Results Follow-Up [facility] [address] Maryanne Seals MD US Renal Complete 12/21/2024 Orders Only [facility] [place] [address] Maryanne Seals MD 12/05/2024 9:00 AM EDT Office Visit [facility] ADULT DENTAL [address] [place] [address] Briana Donahue Dental calculus (Primary Dx); Stage 4 grade B localized periodontitis per AAP/EFP 2017 classification; Chronic periodontitis; Teeth missing; Gingival bleeding 11/22/2024 Orders Only [address] [address] Maryanne Seals MD 11/21/[address] [address] Maryanne Seals MD [facility] (I informed the patient that [facility] were ordered, because a Statement of Good Health from [facility], needs to be completed. She stated that she will come to the [facility] lab on 11/22/24, to have them done.) 11/21/2024 Orders Only [address] [address] Richelle Mckeon, RN Screening for tuberculosis 11/03/[address] [address] Maryanne Seals MD sep recall from Last 3 Months Immunizations Immunization Administration Dates Next Due Hep B, adult 03/10/2018,05/04/2017,03/23/2017 Influenza injectable quadriv alent IIV4 with preservative 03/10/2018,03/11/2017,01/17/2016 Influenza injectable quadriv alent preservative free 06/08/2023,04/30/2021,01/31/2020 Influenza, seasonal, injecta ble, preservative free 01/31/2024 Pfizer Covid-19 Vaccine 12+ 01/31/2024, 4 RSV Bivalent 11/01/2024 Tdap 01/17/2016 Zoster, Recombinant [...] Description 02/08/2025 1:15 PM EDT Office Visit [facility] [address] [place] [address] Maryanne Seals MD [address] [place] [address] 06/12/2025 10:00 AM EST Office Visit [facility] ADULT DENTAL [address] [place] [address] Godfrey, Briana [address] [place] [address] Health Maintenance Due Date Last Done Comments [...] Additional history exists Diabetes: Hemoglobin A1C 07/14/2025 025, 07/23/2023, 08/06/2022, Additional history exists Alcohol/Substance [...] PM EDT Narrative 12/21/2024 1:03 PM EDT [address] [address] Ultrasound Report Signed Patient: Ana Ribeiro MR#: [id number] : 1965 Acct:[id number] Age/Sex: 58 / F ADM Date: 12/21/24 Loc: HO.US Attending Dr: Maryanne Fam MD Ordering Physician: Maryanne Seals MD Date of Service: 12/21/24 Procedure(s): US renal BI Accession Number(s): [id number] cc: Maryanne Seals MD Reason for Exam: [...] 12/21/24 1300 DD/ 1243 TD/TT: 12/21/24 1248 [employer]ker Passenger Train: Procedure Note Donotuseinterpreter, Image - 12/21/[address] [address] Ultrasound Report Signed Patient: Salma Ribeiro#: [id number] : 1965Acct:[id number] Age/Sex: 58 / FADM Date: 12/21/24 Loc: HO.US Attending Dr: Maryanne Fam MD Ordering Physician: Maryanne Seals MD Date of Service: 12/21/24 Procedure(s): US renal BI Accession Number(s): [id number] cc: Maryanne Seals MD Reason for Exam: [...] 12/21/24 1300 DD/ 1243 TD/TT: 12/21/24 1248 [address]ker Passenger Train: Maryanne Fam MD IMG US PROCEDURES Final Result * T-SPOT??.TB (11/22/2024 8:55 AM EDT) T Spot TB Negative Negative [facility] Comment:A negative test resu lt does [...] as aquantitative test. TS PANEL A 2 [facility] TS PANEL B 4 [facility] Negative Control Passed [facility] Positive Control Passed [facility] Comment:For additional infor annie, please refer tohttp://education.[employer]/faq/QOD080(This link is being provided for informational/educational purposes only.)THIS TEST WAS PERFORMED AT:[employer] [address] [place] [address]WSNJWHRALBERTO ESPINOZA MD,PHD 11/22/2024 8:55 AM EDT 11/22/2024 11:19 AM EDT us Maryanne Fam MD LAB BLOOD ORDERAB LES Final Result [facility] [address] [place] [phone] * Hemoglobin A1c (07/14/2024 8:41 AM EDT) Hemoglobin A1c 5.6 <6.0 % [facility] Comment:Hemoglobin A1C Refer ence Range Adults: 4.8 - 6.0 % Non diabetic: < 6.0 % Goal: < 7.0 %Additional Action Suggested: > 8.0 %Note: Hemoglobin A1c results are invalid for patients with abnormal amounts of HbF. Blood transfusions may impact the HbA1c concentration in the patient sample. Estimated Average Glucose 114 mg/dL [facility] Comment:eAG = Estimated ave rage glucose which is %A1C expressed asaverage glucose, using the formula of the Q5K-MghsfakAvbiegv Glucose study (ADAG), Diabetes Care, Vol.31,#8,2007 Blood Venous blood specimen / Unknown 07/14/2024 8:41 AM EDT 07/14/2024 11:21 AM EDT us Maryanne Fam MD LAB BLOOD ORDERAB LES Final Result [facility] [address] [place] [address] [phone] * BI Mammogram Screening Tomosynthesis Bilateral (02/07/2024 3:50 PM EDT) Anatomical Region Laterality Modality Breast Bilateral Mammography 02/07/2024 3:50 PM EDT Narrative 02/16/2024 10:31 AM EST [facility] [address] [place] [address] Mammography Report Signed Patient: Ana Ribeiro MR#: [id number] : 1965 Acct:[id number] Age/Sex: 58 / F ADM Date: 02/07/24 Loc: HO.MAMMO Attending Dr: Maryanne Fam MD Ordering Physician: Arthur Roldan MD Results: 1Negativ e Date of Service: 02/07/24 Follow Up: 1 Year From Orig ina Mammogram Procedure(s): MM tomosynthesis screening BI Accession Number(s): [id number] cc: Maryanne Seals MD; Arthur Roldan MD [...] 02/16/24 1029 DD/ 1550 TD/TT: 02/07/24 1613 [address] [address] Train: Procedure Note Donotuseinterpreter, Image - 02/16/20[facility] [address] [place], [place] [address] Mammography Report Signed Patient: Salma Ribeiro#: [id number] : 1965Acct:[id number] Age/Sex: 58 / FADM Date: 02/07/24 Loc: HO.MAMMO Attending Dr: Maryanne Fam MD Ordering Physician: Arthur Roldan MDResults: 1Negativ e Date of Service: 02/07/24Follow Up: 1 Year From Orig ina Mammogram Procedure(s): MM tomosynthesis screening BI Accession Number(s): [id number] cc: Maryanne Seals MD; Arthur Roldan MD [...] 02/16/24 1029 DD/ 1550 TD/TT: 02/07/24 1613 Braker Passenger Train: [facility] External Provider IMG BI PROCEDURES Edited Result - Final * Hepatitis C Antibody with Reflex to HCV, RNA, Quantitative, Real-Time PCR (07/23/2023 10:21 AM EDT) Hepatitis C Antibody Nonreactive Nonreactive [facility] Comment:Antibodies to HCV no t detected; does not exclude early acuteHCV infection. Blood Venous blood specimen / Unknown 07/23/2023 10:21 AM EDT 07/23/2023 11:25 AM EDT Maryanne Fam MD LAB BLOOD ORDERAB LES Final Result [facility] [address] [place] [phone] * HIV-1/2 Antigen and Antibodies, Fourth Generation, with Reflexes (07/23/2023 10:21 AM EDT) HIV AB/AG Nonreactive Nonreactive [facility] Comment:HIV-1 p24 Ag and/or HIV-1/HIV-2 Ab not detected.A test result that is nonreactive does not exclude thepossibility of exposure to or infection with HIV-1 and/orHIV-2. Nonreactive results in this assay for individualswith prior exposure to HIV-1 and/or HIV-2 may be due toantigen and antibody levels that are below the limit ofdetection of this assay.The [employer] HIV Ag/Ab Combo assay result andsupplemental assay results should be interpreted inconjunction with the patient's clinical presentation,history and other laboratory results. If the results areinconsistent with clinical evidence, additional testing issuggested to confirm the result. Blood Venous blood specimen / Unknown 07/23/2023 10:21 AM EDT 07/23/2023 11:25 AM EDT Maryanne Fam MD LAB BLOOD ORDERAB LES Final Result [facility] [address] [place] [phone] * Hm Colonoscopy (12/11/2021) Colonoscopy Normal Normal [facility] Provider HEALTH MAINTENANCE Final Result * HPV E6/E7 RFLX NIKOS 16 18/45 (10/08/2021 10:19 AM EDT) HPV 16 RNA [facility]NP [facility] HPV 18/45 RNA [facility] HPV E6 E7 ADD [facility] HPV mRNA E6/E7 rflx Not Detected Not Detected [facility] Comment: Methodology: Hydrology Teacher-Mediated Amplification This assay detects E6/E7 viral messenger RNA (mRNA) from 14 high-risk HPV types (16,18,31,33,35,39,45,51,52,56,58,59,66,68). Cervical sources are required for HPV testing. If a vaginal source from a patient who has had a total hysterectomy with removal of cervix was submitted, please contact the testing laboratory for alternative testing options. For additional information, please refer to http://education.[employer]/faq/RUY286d3 (This link if provided for information/ educational purposes only.) THIS TEST WAS PERFORMED AT: [facility] [address] [place] [address],[place] [address] SERENA HARRIS MD 10/08/2021 10:1 9 AM EDT Arthur Roldan MD HISTORICAL/NON ORDERABLE LABS Fi nal Result [facility] [address] * Hm Pap Smear (10/08/2021) Historical Provider HEALTH MAINTENANCE Final Result from Last 3 Months or Most Recently Relevant to Health Maintenance Insurance [facility] C3 DENTAL-[facility] MEDICAID STAND ADULT * Guarantor: Ana Ribeiro Account Type Relation to Patient Date of Phone Billing Address Personal/Family Self [address] Care Teams Short Goods Drier Relationship Specialty Start Date End Date Maryanne Seals MD [address] [place] [phone] PCP - General Internal Medicine 10/16/22
[2025-02-03 08:52] LABS: Hematocrit 39.9 % (37.0-47.0); Hemoglobin 13.0 g/dl (12.0-16.0); Mean Corpuscular HGB Conc 32.6 g/dl (31.0-35.0); Mean Corpuscular Hemoglobin 29.4 pg (27.0-33.0); Mean Corpuscular Volume 90.3 fL (80.0-98.0); NRBC Abs Auto 0.000 X10*3/uL (0.0-0.012); NRBC Pct Auto 0.0 /100WBC (0.0-0.2); Platelet Count 310 X10*3/uL (160-400); Red Blood Count 4.42 X10*6/uL (4.20-5.50); White Blood Count 5.0 X10*3/uL (4.8-10.8)
[2025-02-03 09:51] LABS: Alanine Aminotransferase 27 U/L (0-31); Albumin Level 4.4 g/dL (3.5-5.0); Alkaline Phosphatase 94 U/L (39-117); Anion Gap 10 (12-20); Aspartate Amino Transferase 26 U/L (5-31); Blood Urea Nitrogen 12 mg/dL (9-16); Calcium 9.3 mg/dL (8.4-10.2); Carbon Dioxide 30 mmol/L (22-29); Chloride 106 mmol/L (96-108); Cholesterol 161 mg/dL (<200); Estimated Glomerular Filt Rate > 60; HDL Cholesterol 63 mg/dL (>40); Potassium 4.3 mmol/L (3.3-5.1); Sodium 142 mmol/L (135-145); Total Protein 6.8 g/dL (6.5-8.0); Triglycerides 76 mg/dL (<150)
[2025-02-03 09:59] LABS: Syphilis Screen Nonreactive (Nonreactive)
[2025-02-03 10:03] LABS: HBS Num1 2.34 mIU/mL (0-7.99); HBc Num1 0.21 S/CO (0.00-0.79); HBsAGNum1 0.38 S/CO (0.00-0.99); HIV Num 1 0.05 S/CO (0.00-0.99); Hepatitis B Surface Antigen Negative (Negative); ~HepC Num1 0.06 S/CO (0.00-0.79); ~Hepatitis B Surface Antibody NONREACTIVE (Nonreactive); ~Hepatitis C Antibody Nonreactive (Nonreactive)
[2025-02-03 11:55] LABS: CT PCR Urine NOT DETECTED (Not Detect.); NG PCR Urine NOT DETECTED (Not Detect.)
== END 2025-02-03 08:14 | disposition home or self-care (01) ==
LOC: HO.LAB 08:13
PROVIDERS: PCP Student in an Organized Health Care Education/Training Program; Visit Provider Student in an Organized Health Care Education/Training Program
DX: Z00.00 Encounter for general adult medical examination without abnormal findings (principal); Z20.2 Contact with and (suspected) exposure to infections with a predominantly sexual mode of transmission; Z11.59 Encounter for screening for other viral diseases
CPT/HCPCS: 80053; 80061; 83036; 84443; 85027; 86704; 86706; 86780; 86803; 87340; 87389; 87491; 87591

== ENCOUNTER 2025-02-13 15:27 | Outpatient (AMB) | payer MEDICAID, SELFPAY ==
--- NOTE | 2025-02-13 15:28 | MHC.OFFVIS ---
Vital Signs 02/13/25 15:29 Height 5 ft Weight 130 lb BMI 25.4 BP 130/80 Intake Visit Reasons: annual Medical Staff Services Manager Required: Yes Medical Staff Services Manager Language: Chief Relay Tester Services: Medical Staff Services Manager Present (in person) Medical Staff Services Manager Name: Ani GIANG Information Interpreted: non-clinical & clinical Manager Editorial: Manager Editorial Present (Ani GIANG) Accompanied by: Self / Same As Patient Allergies No Known Allergies (No Known Allergies*) Allergy (Verified 02/13/25 15:30) Post menopausal: Yes HPI Comments Details: Presenting for annual exam. No complaints. History of uterine myoma Last Pap/HPV was negative in 12/02 Last Mammogram was BI-RADS 1 in 02/02 Last Colonoscopy was done in 01/01, the recommendation was to repeat in 5 years [facility] Medical History 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 I (cervical intraepithelial neoplasia I) Surgical History History of esophagogastroduodenoscopy (EGD) Hx of colonoscopy Family History Mother Colon cancer Brother Bladder cancer Sister Liver cancer Father CAD (coronary artery disease) Social History Household Members Other:: daughter Housing: Apartment Alcohol intake: current Alcohol intake frequency: holidays/special occasions only Patient Tobacco Use Status: Never used Tobacco Current occupational status: unemployed Sexual orientation: Straight/Heterosexual Gender identity: Female Female Reproductive History Menstrual Date of last pap smear: 11/20/22 Date of Mammogram: 02/07/24 Review of Systems Const All systems reviewed & are unremarkable except as noted in HPI and below Card Reports as per HPI Resp Reports as per HPI GI Reports as per HPI and Reports no additional complaints Reports as per HPI Physical Exam Vital Signs: Last Vital Signs BP 130/80 02/13/25 15:29 BMI result Body Mass Index 25.4 Const General: cooperative, healthy appearing and comfortable Chest Chest palpation & inspection: normal inspection of the chest and normal palpation of entire chest wall Breast/axilla inspection: normal inspection of the breasts and normal inspection of the axillae Breast/axilla palpation: normal palpation of the breasts, normal palpation of the axillae and no axillary lymphadenopathy Resp Effort & Inspection: normal respiratory effort Auscultation: clear to auscultation bilaterally Percussion: percussion normal Cardio Palpation: normal PMI Rate: regular rate Rhythm: regular rhythm Heart sounds: no murmurs and no rubs Peripheral pulses: Peripheral pulses 2+ throughout GI Inspection: Yes normal to inspection Palpation (GI): Soft to palpation, nontender, no guarding, not rigid and No hepatosplenomegaly present Percussion: Yes normal to percussion Auscultation: normal bowel sounds Rectal Exam - Female: deferred General: Yes bladder normal to palpation External Female Exam: No lesion Speculum Exam - Vagina: normal appearance of the vagina, normal palpation, normal vaginal discharge and not erythematous Speculum Exam - Cervix: normal appearance of the cervix and normal palpation Bimanual exam- vagina & uterus: normal bimanual exam, normal palpation, uterine size normal, bladder normal to palpation, consistency normal and normal palpation Bimanual Exam- Adnexa, other: normal adnexae, no masses and no tenderness Assessment & Plan Assessment & Plan (1) Well woman exam: Comment: NIKKI 1 in 2018 Code(s): Z01.419 - Encounter for gynecological examination (general) (routine) without abnormal findings Category: Medical Plan: Co testing not indicated this year. Counseled the patient about the recommended dietary allowance of 1200 mg of Calcium & 600 IU of vitamin D. Mammogram ordered. The patient was instructed to perform monthly self-breast exams and schedule annual exam in a year. All questions answered and the patient verbalized understanding. (2) Uterine myoma: Code(s): D25.9 - Leiomyoma of uterus, unspecified Category: Medical Plan: Pelvic Ultrasound ordered. Instructions given the patient to schedule an ultrasound follow-up appointment within 2 weeks. All questions answered, the patient verbalized understanding Orders: Orders MM tomosynthesis screening BI Today Z12.31 - Encounter for screening mammogram for malignant neoplasm of breast US pelvic and transvaginal Today D25.9 - Leiomyoma of uterus, unspecified Coding Level of Care Code Est Pt Level 3 (39508) Est Pt Prev Care 40-64y(50687) Diagnoses Well woman exam Z01.419 Uterine myoma D25.9
[2025-02-13 15:29] VITALS: BP 130/80; BMI 25.4
== END 2025-02-13 16:08 | disposition home or self-care (01) ==
LOC: HO.HWS 15:27
PROVIDERS: PCP Student in an Organized Health Care Education/Training Program; Visit Provider Obstetrics & Gynecology
DX: Z01.419 Encounter for gynecological examination (general) (routine) without abnormal findings (principal); D25.9 Leiomyoma of uterus, unspecified
CPT/HCPCS: 99213; 99396; 99459

== ENCOUNTER → 2025-02-13 15:27 | Outpatient (BNVA) | payer MEDICAID, SELFPAY | PROVIDERS: PCP Student in an Organized Health Care Education/Training Program; Visit Provider Obstetrics & Gynecology | DX: Z01.419 Encounter for gynecological examination (general) (routine) without abnormal findings (principal); D26.9 Other benign neoplasm of uterus, unspecified | CPT/HCPCS: 99212; 99396 ==

== ENCOUNTER 2025-03-21 12:00 | Outpatient (REF) | payer MEDICAID, SELFPAY ==
--- NOTE | ~2025-03-21 | XR_ITS ---
EXAMINATION: XR HAND, LEFT CLINICAL INFORMATION: left hand pain on base of left thumb COMPARISON: None available. TECHNIQUE: Four views of the left hand. FINDINGS: No acute fracture, dislocation or suspicious bony lesion is identified. Small corticated ossification distal to the ulna styloid process, likely related to old injury. No significant arthritic change or erosions. No abnormal soft tissue calcification No radiopaque foreign body. XR/XR hand LT min 3V IMPRESSION: No radiographic evidence of acute osseous findings. Electronically signed by: Norberto Tolliver MD 03/21/2025 02:32 PM EST
== END 2025-03-21 12:01 | disposition home or self-care (01) ==
LOC: HO.HHCX 12:00
PROVIDERS: Visit Provider Student in an Organized Health Care Education/Training Program
DX: M79.645 Pain in left finger(s) (principal); M79.642 Pain in left hand
CPT/HCPCS: 73130

== ENCOUNTER → 2025-03-21 12:01 | Outpatient (BNV) | payer MEDICAID, SELFPAY | PROVIDERS: Visit Provider Radiology Diagnostic Ultrasound | DX: M79.642 Pain in left hand (principal) | CPT/HCPCS: 73130 ==

== ENCOUNTER 2025-04-06 14:21 | Outpatient (REF) | payer MEDICAID, SELFPAY ==
--- NOTE | ~2025-04-06 | US_ITS ---
CLINICAL HISTORY: D25.9 - Leiomyoma of uterus, unspecified US pelvis transvaginal Comparison: 09/28/2023 Findings: Transvaginal scanning performed. Anteverted uterus is 7.0 cm length. Normal myometrium. No endometrial lesion, 2.0 mm thickness. There are multiple leiomyomata. The largest of these currently measures 2.7 x 2.7 x 2.4 cm, previously measuring 3.1 x 2.4 x 2.3 cm. Right ovary 2.7 x 1.5 x 1.3 cm. Left ovary 2.1 x 1.4 x 1.1 cm. Normal color Doppler of both ovaries. No free fluid. IMPRESSION: 1. Multiple uterine leiomyomata This document has been electronically signed by: Humberto Fernández MD on 04/07/2025 11:22:55
== END 2025-04-06 14:22 | disposition home or self-care (01) ==
LOC: HO.US 14:21
PROVIDERS: Visit Provider Obstetrics & Gynecology
DX: D25.9 Leiomyoma of uterus, unspecified (principal)
CPT/HCPCS: 76830; 76856

== ENCOUNTER → 2025-04-06 14:22 | Outpatient (BNV) | payer MEDICAID, SELFPAY | PROVIDERS: Visit Provider Specialist | DX: D25.9 Leiomyoma of uterus, unspecified (principal) | CPT/HCPCS: 76830; 76856 ==